=== PATIENT | female | born 1960 | race Caucasian/White ===

== ENCOUNTER 2022-11-05 07:03 | Outpatient (OUT) | payer OTHER, SELFPAY ==
[2022-11-05 07:46] LABS: Alanine Aminotransferase 31 U/L (14-59); Albumin Globulin Ratio 1.1; Alkaline Phosphatase 53 U/L (46-116); Anion Gap 15.9; Aspartate Amino Transferase 16 U/L (15-37); Bilirubin Total 0.8 mg/dL (0.2-1.0); Calcium 9.1 mg/dL (8.5-10.1); Carbon Dioxide 26.1 mmol/L (21.0-32.0); Chloride 105 mmol/L (98-107); Chol HDL Ratio 2.3; Cholesterol 220 mg/dL (<=200); Estimated GFR (African America >60 (>=60); Estimated GFR (Non-African Ame >60 (>=60); Globulin 3.5 g/dL; Glucose 116 mg/dL (74-106); HDL Cholesterol 94 mg/dL (40-60); Sodium 143 mmol/L (136-145); Thyroid Stimulating Hormone 1.151 uIU/mL (0.358-3.740); Total Protein 7.5 g/dL (6.4-8.2); Triglycerides 79 mg/dL (<=150); VLDL CHOLESTEROL 15.8 mg/dL
[2022-11-05 07:57] LABS: Basophils Absolute Auto 0.1 10^3/uL (0.0-0.1); Eosinophils Absolute Auto 0.2 10^3/uL (0.0-0.7); Eosinophils Percent Auto 2.5 % (0.9-7.0); Hematocrit 41.2 % (36.0-48.0); Hemoglobin 14.1 g/dL (12.0-16.0); Immature Granulocytes Abs Auto 0.02 10^3/uL (0.00-0.03); Immature Granulocytes Pct Auto 0.3 % (0.0-0.5); Lymphocytes Absolute Auto 2.6 10^3/uL (1.2-3.8); Lymphocytes Percent Auto 42.5 % (20.5-60.0); Mean Corpuscular HGB Conc 34.2 g/dL (29.9-35.2); Mean Corpuscular Hemoglobin 31.5 pg (26.7-34.0); Mean Corpuscular Volume 92.2 fL (81.0-99.0); Mean Platelet Volume 9.9 fL (9.5-13.5); Monocytes Absolute Auto 0.6 10^3/uL (0.3-0.8); Monocytes Percent Auto 9.8 % (1.7-12.0); Neutrophils Absolute Auto 2.7 10^3/uL (1.4-6.5); Neutrophils Percent Auto 43.9 % (43.0-75.0); Platelet Count 285 10^3/uL (150-450); Red Blood Count 4.47 10^6/uL (4.20-5.40); Red Cell Distribution Width 12.9 % (11.0-15.0)
== END 2022-11-05 07:04 | disposition home or self-care (01) ==
PROVIDERS: PCP Internal Medicine; Visit Provider Internal Medicine
DX: Z00.00 Encounter for general adult medical examination without abnormal findings (principal)
CPT/HCPCS: 36415; 80053; 80061; 84443; 85025

== ENCOUNTER 2022-12-31 08:03 | Outpatient (OUT) | payer OTHER, SELFPAY ==
[2022-12-31 09:55] LABS: Alanine Aminotransferase 35 U/L (14-59); Chol HDL Ratio 1.9; Cholesterol 170 mg/dL (<=200); HDL Cholesterol 88 mg/dL (40-60); Triglycerides 89 mg/dL (<=150); VLDL CHOLESTEROL 17.8 mg/dL
== END 2022-12-31 08:04 | disposition home or self-care (01) ==
LOC: LAB 08:03
PROVIDERS: PCP Internal Medicine; Visit Provider Internal Medicine
DX: E78.01 Familial hypercholesterolemia (principal)
CPT/HCPCS: 36415; 80061; 84460

== ENCOUNTER 2023-11-09 15:40 | Outpatient (OUT) | payer OTHER, SELFPAY ==
--- NOTE | 2023-11-09 15:42 | MM_ITS ---
Patient Name: DEIS FAIR MR#: [id number] : 1960 Exam Date: 11/09/2023 Ordering Doctor: DR Zacarias Stallings D.O. RADIOLOGY REPORT PROCEDURE: MM TOMOSYNTHESIS SCREENING BI COMPARISON: MG MAMM SCREEN 3D CHAD CAD, 02/11/2022. MG MAMM SCREEN 3D CHAD CAD, 09/21/2020. MG MAMM SCREEN CHAD W CAD, 08/21/2018. MG MAMM CHAD SCRN W CAD DIG, 09/01/2012. INDICATIONS: Screening Calculator Name NCI Breast Cancer Risk Assessment Tool 5 Year Breast Cancer Risk 1.20% Lifetime Breast Cancer Risk 5.70% Personal Breast Cancer No Personal Ovarian Cancer No Treatments None Family Cancers Mother with bladder cancer at age 73. LOCATION: [facility] BREAST COMPOSITION: The breasts are heterogeneously dense,which may obscure small masses. FINDINGS: DIAGNOSTIC CATEGORY 1--NEGATIVE. RIGHT BREAST: No significant suspicious finding. No significant change has occurred. LEFT BREAST: No significant suspicious finding. No significant change has occurred. RECOMMENDATIONS: ROUTINE MAMMOGRAM AND CLINICAL EVALUATION IN 12 MONTHS. PLEASE NOTE: A NORMAL MAMMOGRAM DOES NOT EXCLUDE THE POSSIBILITY OF BREAST CANCER. A CLINICALLY SUSPICIOUS PALPABLE LUMP SHOULD BE BIOPSIED. Dictated by: Nick Kasper M.D. on 11/09/2023 at 16:30 Approved by: Nick Kasper M.D. on 11/09/2023 at 16:32
== END 2023-11-09 15:41 | disposition home or self-care (01) ==
LOC: MAMMO 15:40
PROVIDERS: PCP Internal Medicine; Visit Provider Internal Medicine
DX: Z00.00 Encounter for general adult medical examination without abnormal findings (principal); Z12.31 Encounter for screening mammogram for malignant neoplasm of breast
CPT/HCPCS: 77063; 77067

== ENCOUNTER 2023-11-21 15:36 | Outpatient (OUT) | payer OTHER, SELFPAY | END 2023-11-21 15:37 | disposition home or self-care (01) | LOC: CARD 15:37 | PROVIDERS: PCP Internal Medicine; Visit Provider Internal Medicine | DX: R00.2 Palpitations (principal) | CPT/HCPCS: 93242 ==

== ENCOUNTER 2023-11-27 07:05 | Outpatient (OUT) | payer OTHER, SELFPAY ==
--- OUTSIDE RECORDS SUMMARY | 2023-11-27 07:08 | XMS_ITS | CCD ---
Author Organization [facility] CliniSymt Care Team Providers Care Improvement Coordinator Name Role Phone CRISELDA HAI N Unavailable Unavailable CRISELDA, HAI N Unavailable Unavailable SELF, REFERRED Unavailable Unavailable SELF, REFERRED Unavailable Unavailable CRISELDA, HAI N Unavailable Unavailable CRISELDA, HAI N Unavailable Unavailable CRISELDA, HAI N Unavailable Unavailable SELF, REFERRED Unavailable Unavailable Chandrakant, Zacarias Unavailable KRISTINA ., DR FAIR Consulting Unavailable HAY ., DR FAIR Admitting Unavailable HAY ., DR FAIR Attending Unavailable CHANDRAKANT, DR LEVY Primary Care Unavailable LIZ, DR PANDA Philippe Admitting Unavailable CHANDRAKANT, DR LEVY Primary Care Unavailable LIZ, DR PANDA Philippe Attending Unavailable LIZ, DR PANDA Philippe Consulting Unavailable NANI ., LAUREL Consulting Unavailable LUIS FERNANDO, REJI Consulting Unavailable BALL, DR LEVY Admitting Unavailable BALL, DR LEVY Primary Care Unavailable BALL, DR LEVY Attending Unavailable BALL, DR LEVY Primary Care Unavailable BALL, DR LEVY Admitting Unavailable BALL, DR LEVY Attending Unavailable BALL, DR LEVY Consulting Unavailable ZIEBER, DR NICK Philippe Consulting Unavailable UMANZOR, VINH Consulting Unavailable BALL, DR LEVY Admitting Unavailable BALL, DR LEVY Attending Unavailable BALL, DR LEVY Consulting Unavailable BALL, DR LEVY Primary Care Unavailable CHANDRAKANT, DR LEVY Primary Care Unavailable BALL, DR LEVY Admitting Unavailable BALL, DR LEVY Attending Unavailable BALL, DR LEVY Consulting Unavailable ZIEBER, DR NICK Philippe Consulting Unavailable BROWN, MARGO Consulting Unavailable BALL, DR LEVY Primary Care Unavailable BALL, DR LEVY Admitting Unavailable BALL, DR LEVY Attending Unavailable BALL, DR LEVY Consulting Unavailable Allergies Allergy Classification Reported Allergen(s) Allergy Type Date of Onset Reaction(s) Facility (12 sources) Acetaminophen / Aspirin / Caffeine / salicylamide Drug Allergy rash [employer] Other (15 sources) Codeine Drug Allergy 05-08-19 24 Unknown, Itching, hallucinations [facility] (15 sources) HYDROmorphone Drug Allergy 05-08-19 24 Unknown, Unknown Reaction [facility] (12 sources) NITROFURANTOIN, MACROCRYSTALS / Nitrofurantoin, Monohydrate Drug Allergy Unknown [facility] Other (15 sources) Sulfacetamide Drug Allergy 05-08-19 24 rash [facility] (15 sources) zonisamide Drug Allergy 05-08-19 24 Unknown, Chest Pain, dyspnea [facility] (1 source) Codeine Drug Allergy [facility] (1 source) HYDROmorphone Drug Allergy [facility] (1 source) Ketorolac Drug Allergy [facility] (1 source) Meperidine Drug Allergy [facility] (1 source) Sulfonamides (Antibiotic) Drug allergy (disorder) [facility] (4 sources) Substance with sulfonamide structure and antibacterial mechanism of action (substance) Drug allergy 01-28-20 15 Unknown [facility] Other (3 sources) Acetaminophen Drug Allergy 05-08-19 24 Itching, dyspnea, redness of face [facility] (3 sources) HYDROcodone Drug Allergy 05-08-19 24 Itching, dyspnea, redness of face [facility] (3 sources) Nitrofurantoin Drug Allergy 05-08-19 24 Unknown Reaction [facility] (3 sources) Sulfonamides (Antibiotic) Allergy to substance 05-08-19 24 Itching, rash , dyspnea [facility] (3 sources) Pain Relief Allergy to substance 11-02-19 23 [facility] Medications Current Medications Medication Drug Class(es) Dates Sig (Normalized) Sig (Original) amLODIPine 5 mg oral tablet (15 sources) Dihydropyridine Calcium Channel Parker Start: 05-06-2023 take 5 mg by mouth twice daily Amlodipine Active 5 MG PO Twice daily May 06, 2023 1:00am take 1 tablet by mouth twice scott ly amLODIPine Besylate 5 MG 1 tablet Orally twice daily Active aspirin 81 mg chewable tablet (15 sources) Platelet Aggregation Inhibitor, Nonsteroidal Anti-inflammatory Drug Start: 05-06-2023 take 81 mg by mouth once daily Aspirin Active 81 MG PO Daily May 06, 2023 1:00am take 1 tablet by mouth once claudy y Aspirin 81 81 MG 1 tablet Orally Once a day Active atorvastatin (7 sources) HMG-CoA Reductase Inhibitor Start: 05-31-2023 take 1 tablet by mouth in the evening Atorvastatin Active 0 .ROUTE .COMPLEX May 31, 2023 4:29pm TAKE 1 TABLET BY MOUTH IN THE EVENING Start: 05-31-2023 End: 05-31-2023 take 20 mg by mouth once daily Atorvastatin Discontinu ed 20 MG PO Daily May 31, 2023 12:00am May 31, 2023 4:29pm take 1 tablet by thor th once daily in the evening Atorvastatin Calcium 20 MG 1 tablet Orally daily in evening for 30 days Active baclofen 10 mg oral tablet (16 sources) gamma-Aminobutyric Acid-ergic Agonist Start: 08-18-2023 take 1 tablet by mouth once daily as needed Baclofen Active 0 .ROUTE .COMPLEX 90 August 18, 2023 1:19pm TAKE 1 TABLET BY MOUTH DAILY NEEDED Start: 05-06-2023 End: 08-18-2023 take 10 mg by mouth once daily Baclofen Discontinued 1 0 MG PO Daily May 06, 2023 1:00am August 18, 2023 1:19pm Start: 03-22-2022 take 1 tablet by thor th every twenty-four hours Baclofen 10 MG 1 tablet as needed Orally Once a day for 90 days Mar, Active bisoprolol fumarate 10 mg / hydroCHLOROthiazide 6.25 mg oral tablet (15 sources) Thiazide Diuretic, beta-Adrenergic Parker Start: 05-06-2023 take 1 tablet by mouth once daily Bisoprolol-Hydrochlorothiazide Active 1 TAB PO Daily May 06, 2023 1:00am Start: 05-02-2022 take 1 tablet by thor th every twenty-four hours Bisoprolol-hydroCHLOROthiazide 5-6.25 MG 1 tablet Orally Once a day for 30 day(s) Apr, Active take 1 tablet by thor th once daily Bisoprolol-hydroCHLOROthiazide 10-6.25 M G TAKE 1 TABLET BY MOUTH ONCE DAILY for 30 Active cloNIDine (11 sources) Central alpha-2 Adrenergic Agonist Start: 09-28-2023 take 1 tablet by mouth every twelve hours Clonidine Hcl Active 0 .ROUTE .COMPLEX 180 September 28, 2023 4:24pm TAKE 1 TABLET BY MOUTH EVERY 12 HOURS Start: 09-27-2023 End: 09-28-2023 take 1 tablet by mouth every twelve hours Clonidine Hcl Discontinued 0 .ROUTE .COMPLEX 180 September 27, 2023 6:17pm September 28, 2023 4:24pm TAKE 1 TABLET BY MOUTH EVERY 12 HOURS Start: 05-06-2023 End: 09-27-2023 take 0.1 mg by mouth every twelve hours Clonidine Hcl Discontinued 0.1 MG PO Every 12 hours May 06, 2023 1:00am September 27, 2023 6:17pm Start: 06-29-2022 take 1 tablet by thor th every twelve hours cloNIDine HCl 0.1 MG 1 tablet Orally every 12 hours Jun, Active losartan potassium 50 mg oral tablet (15 sources) Angiotensin 2 Receptor Parker Start: 05-06-2023 take 50 mg by mouth twice daily Losartan Active 50 MG PO Twice daily May 06, 2023 1:00am take 1 tablet by mouth twice scott ly Losartan Potassium 50 MG 1 tablet Orally twice daily for 30 days Active take 1 tablet by mouth twice scott ly Losartan Potassium 25 MG 1 tablet Orally twice daily Active magnesium oxide 400 mg oral tablet (15 sources) Start: 05-06-2023 take 400 mg by mouth once daily Magnesium Oxide Active 400 MG PO Daily May 06, 2023 1:00am Magnesium Oxide 400 MG 1 Orally Once a day for 90 days Active Prepopik 10-3.5-12 MG-GM-GM (12 sources) Start: 02-18-2015 SUMAtriptan (12 sources) Serotonin-1b and Serotonin-1d Receptor Agonist Imitrex Active warfarin sodium 5 mg oral tablet (5 sources) Vitamin K Antagonist Warfarin 5m g 5 mg as directed orally Active Completed/Discontinued Medications Medication Drug Class(es) Dates Sig (Normalized) Sig (Original) diphenhydrAMINE (12 sources) Histamine-1 Receptor Antagonist Start: 04-18-2013 Benadryl up to 50 mg Mar, 1 mL Ketorolac (12 sources) Nonsteroidal Anti-inflammatory Drug, Cyclooxygenase Inhibitor Start: 04-18-2013 Toradol per 15 mg Mar, 2 mL rizatriptan 5 mg oral tablet (3 sources) Serotonin-1b and Serotonin-1d Receptor Agonist Start: 01-03-2019 End: 05-06-2023 Rizatriptan Discontinued 5 MG PO As Directed January 03, 2019 12:00am May 06, 2023 1:55pm topiramate 50 mg oral tablet (3 sources) Start: 01-03-2019 End: 05-06-2023 take 75 mg by mouth twice daily Topiramate Discontinued 75 MG PO Twice daily January 03, 2019 12:00am May 06, 2023 1:55pm verapamil hydrochloride 120 mg extended release oral tablet (3 sources) Calcium Channel Parker Start: 01-03-2019 End: 05-06-2023 take 120 mg by mouth once daily at bedtime Verapamil Discontinued 120 MG PO Daily at bedtime January 03, 2019 12:00am May 06, 2023 1:55pm Problems Active Problems Problem Classification Problem Date Documented Da te Episodic/Chronic Acute cerebrovascular disease (20 sources) Cerebral infarction due to unspecified occlusion or stenosis of right carotid arteries; Translations: [Cerebral infarction due to stenosis of carotid artery] Chronic Aortic; peripheral; and visceral artery aneurysms (14 sources) Dissection of right carotid artery; Translations: [Dissection of carotid artery] Onset: 12-29-2021 Chronic Cardiac dysrhythmias (2 sources) Palpitations; Translations: [Palpitations] 11-03-2023 Episodic Disorders of lipid metabolism (20 sources) Pure hypercholesterolemia; Translations: [Familial hypercholesterolemia] Chronic Essential hypertension (20 sources) Essential hypertension; Translations: [Essential (primary) hypertension] Onset: 06-29-2022 Chronic Genitourinary symptoms and ill-defined conditions (7 sources) Frequency of micturition; Translations: [Frequency of urination] Episodic Headache; including migraine (17 sources) Migraine with aura; Translations: [Migraine with aura, not intractable, without status migrainosus] Chronic Headache; including migraine (4 sources) Headache; including migraine; Translations: [HEADACHE UNSPECIFIED] Onset: 12-27-2021 Miscellaneous mental health disorders (7 sources) Occipital headache; Translations: [Unilateral occipital headache] Chronic Nonmalignant breast conditions (7 sources) Inflammatory disorder of breast; Translations: [Mastitis without abscess] Episodic Osteoporosis (1 source) Age-related osteoporosis without current pathological fracture; Translations: [AGE-REL OSTEOPOR W/O CURR PATH FX] Onset: 02-16-2022 Chronic Other aftercare (1 source) manager long term care (current) use of aspirin; Translations: [MCFP CURRENT USE OF ASPIRIN] Onset: 07-01-2022 Episodic Other and ill-defined cerebrovascular disease (1 source) Cerebral atherosclerosis; Translations: [Cerebral atherosclerosis] 07-31-2023 Chronic Other and ill-defined cerebrovascular disease (1 source) Cerebral atherosclerosis; Translations: [Cerebral atherosclerosis] 11-03-2023 Chronic Other circulatory disease (7 sources) Elevated blood-pressure reading without diagnosis of hypertension; Translations: [Elevated blood-pressure reading, without diagnosis of hypertension] Episodic Other circulatory disease (12 sources) Cardiovascular symptoms; Translations: [Other specified symptoms and signs involving the circulatory and respiratory systems] Episodic Other circulatory disease (1 source) Personal history of transient ischemic attack (TIA), and cerebral infarction without residual deficits; Translations: [PERS HX TIA AND CI NO RESID DEFICIT] Onset: 07-01-2022 Episodic Other endocrine disorders (12 sources) Primary hyperparathyroidism; Translations: [Primary hyperparathyroidism] Chronic Other eye disorders (7 sources) Subconjunctival hemorrhage of left eye; Translations: [Conjunctival hemorrhage, left eye] Episodic Other gastrointestinal disorders (12 sources) Irritable bowel syndrome characterized by constipation; Translations: [Irritable bowel syndrome with constipation] Chronic Other lower respiratory disease (7 sources) Cough; Translations: [Cough] Episodic Other non-traumatic joint disorders (1 source) Pain in right knee; Translations: [Pain in joint, lower leg] 05-08-2023 Episodic Other upper respiratory infections (1 source) Acute pharyngitis, unspecified; Translations: [Acute pharyngitis] 05-08-2023 Episodic Otitis media and related conditions (7 sources) Other specified disorders of Eustachian tube, right ear; Translations: [Dysfunction of right eustachian tube] Episodic Residual codes; unclassified (13 sources) Asymptomatic menopausal state; Translations: [Menopause] Onset: 02-16-2022 Episodic Screening and history of mental health and substance abuse codes (1 source) Personal history of nicotine dependence; Translations: [PERSONAL HISTORY OF NICOTINE DEPEND] Onset: 07-01-2022 Episodic Spondylosis; intervertebral disc disorders; other back problems (20 sources) Cervical spondylosis without myelopathy; Translations: [Other spondylosis with radiculopathy, cervical region] Chronic Substance-related disorders (20 sources) Tobacco user; Translations: [Nicotine dependence, cigarettes, uncomplicated] Onset: 12-29-2021 Chronic Unclassified (2 sources) Unknown / UNK(Unknown) Onset: 01-19-2017 Unclassified (4 sources) CONTACT W/AND (SUSP) EXPOS COVID-19; Translations: [CONTACT W/AND (SUSP) EXPOS COVID-19] Onset: 09-02-2021 Unclassified (3 sources) COUGH, UNSPECIFIED; Translations: [COUGH, UNSPECIFIED] Onset: 09-15-2021 Past or Other Problems Problem Classification Problem Date Documented Da te Episodic/Chronic Lymphadenitis (8 sources) Lymphadenopathy; Translations: [Localized enlarged lymph nodes] Onset: 09-15-2021 Episodic Other bone disease and musculoskeletal deformities (1 source) Other specified disorders of bone density and structure, other site; Translations: [OTH D/O BONE DEN STRUCT OTH SITE] Onset: 02-16-2022 Episodic Other screening for suspected conditions (not mental disorders or infectious disease) (4 sources) Encounter for screening mammogram for malignant neoplasm of breast; Translations: [ENC SCR MAMMO MALIG NEOPLASM BREAST] Onset: 02-11-2022 Episodic Residual codes; unclassified (1 source) Family history of malignant neoplasm of bladder; Translations: [FAM HX MALIGNANT NEOPLASM BLADDER] Onset: 02-16-2022 Episodic Spondylosis; intervertebral disc disorders; other back problems (4 sources) Occipital neuralgia; Translations: [OCCIPITAL NEURALGIA] Onset: 01-19-2017 Episodic Unclassified (1 source) COUGH, UNSPECIFIED; Translations: [COUGH, UNSPECIFIED] Onset: 09-10-2021 Unclassified (1 source) CONTACT W/AND (SUSP) EXPOS COVID-19; Translations: [CONTACT W/AND (SUSP) EXPOS COVID-19] Onset: 08-31-2021 Viral infection (7 sources) Disease caused by 2019-nCoV; Translations: [COVID-19] Results Test Name Value Interpretation Reference Range Facility CBC AUTO DIFFon 06-29-2022 BASO # 0.1 103/ul Normal 0.0-0.[address] [facility] Comment on above: Performed By: #### C BC ####[facility] [address] [place], [place] [address]WzLola Pérez Basophils/100 WBC (Bld) 1.0 % Normal 0.2-2.[address] [facility] Comment on above: Performed By: #### C BC ####[facility] [address] [place] [id number]. Brady Pérez EO # 0.2 103/ul Normal 0.0-0.7 [facility] Comment on above: Performed By: #### C BC ####[facility] [address] [place] [id number]. Brady Pérez Eosinophils/100 WBC (Bld) 3.5 % Normal 0.9-7.0 [facility] Comment on above: Performed By: #### C BC ####[facility] [address] [place], [place] [address]Dr. Brady Pérez Erythrocyte distribution width (RBC) [Ratio] 13.2 % Normal 11.0-15.0 [facility] Comment on above: Performed By: #### C BC ####[facility] [address] [place], [place] [address]Dr. Brady Pérez Hematocrit (Bld) [Volume fraction] 41.5 % Normal 36.0-48.0 [facility] Comment on above: Performed By: #### C BC ####[facility] [address] [place], [place] [address]Dr. Brady Pérez Hemoglobin (Bld) [Mass/Vol] 14.1 g/dL Normal 12.0-16.0 [facility] Comment on above: Performed By: #### C BC ####[facility] [address] [place], [place] [address]Dr. Brady Pérez IG # 0.01 10e3/ul Normal 0.00-0.03 [facility] Comment on above: Performed By: #### C BC ####[facility] [address] [place], [place] [address]Dr. Brady Pérez IG % 0.2 % Normal 0.0-0.5 [facility] Comment on above: Performed By: #### C BC ####[facility] [address] [place], [place] [address]Dr. Brady Pérez LYMPH # 2.5 103/ul Normal 1.2-3.8 [facility] Comment on above: Performed By: #### C BC ####[facility] [address] [place] [id number]. Brady Pérez Lymphocytes/100 WBC (Bld) 48.3 % Normal 20.5-60.0 [facility] Comment on above: Performed By: #### C BC ####[facility] [address] [place] [id number]. Brady Pérez MANUAL DIFF REQ NO Normal [facility] Comment on above: Performed By: #### C BC ####[facility] [address] [place] [id number]. Brady Beto MCH (RBC) [Entitic mass] 30.8 pg Normal 26.7-34.0 [facility] Comment on above: Performed By: #### C BC ####[facility] [address] [place] [id number]. Brady Pérez MCHC (RBC) [Mass/Vol] 34.0 g/dL Normal 29.9-35.2 [facility] Comment on above: Performed By: #### C BC ####[facility] [address] [place] [id number]. Brady Pérez MCV (RBC) [Entitic vol] 90.6 fL Normal 81.0-99.0 [facility] Comment on above: Performed By: #### C BC ####[facility] [address] [place] [id number]. Brady Beto MONO # 0.6 103/ul Normal 0.3-0.8 [facility] Comment on above: Performed By: #### C BC ####[facility] [address] [place] [id number]. Brady Pérez Monocytes/100 WBC (Bld) 12.2 % Critically high 1.7-12.0 [facility] Comment on above: Performed By: #### C BC ####[facility] [address] [place], [place] [id number]. Argentinaanalilia Beto NEUT # 1.8 103/ul Normal 1.4-6.5 [facility] Comment on above: Performed By: #### C BC ####[facility] [address] [place] [id number]. Brady Pérez Neutrophils/100 WBC (Bld) 34.8 % Critically low 43.0-75.0 [facility] Comment on above: Performed By: #### C BC ####[facility] [address] [place] [id number]. Brady Pérez Platelet mean volume (Bld) [Entitic vol] 9.4 fL Critically low 9.5-13.5 [facility] Comment on above: Performed By: #### C BC ####[facility] [address] [place] [id number]. Brady Pérez PLT 296 103/ul Normal 150-450 [facility] Comment on above: Performed By: #### C BC ####[facility] [address] [place] [id number]. Brady Pérez RBC 4.58 106/ul Normal 4.20-5.40 [facility] Comment on above: Performed By: #### C BC ####[facility] [address] [place] [id number]. Brady Pérez WBC 5.2 103/ul Normal 4.0-11.0 [facility] Comment on above: Performed By: #### C BC ####[facility] [address] [place] [id number] Pérez PROF CHEM 8 (BAS METB)on Anion gap [Moles/Vol] 14.0 mmol/L Normal [facility] Comment on above: Performed By: #### B MP #### [facility] [address] [place] [address] [address] Brady Pérez Calcium [Mass/Vol] 9.2 mg/dL Normal 8.5-10.1 [facility] Comment on above: Performed By: #### B MP #### [facility] [address] [place] [address] [address] Brady Pérez Chloride [Moles/Vol] 104 mmol/L Normal 98-107 [facility] Comment on above: Performed By: #### B MP #### [facility] [address] [place] [address] [address] Brady Pérez CO2 [Moles/Vol] 28.1 mmol/L Normal 21.0-32.0 [facility] Comment on above: Performed By: #### B MP #### [facility] [address] [place] [address] [address] Brady Pérez Creatinine [Mass/Vol] 1.02 mg/dL Normal 0.55-1.02 [facility] Comment on above: Performed By: #### B MP #### [facility] [address] [place] [address] [address] Brady Pérez EGFR-AF KOSOVAN >60 Normal >=60 [facility] Comment on above: Performed By: #### B MP #### [facility] [address] [place] [address] Dr. Brady Pérez EGFR-NON AF KOSOVAN 55 mL/min/1.73m2 Critically low >=60 [facility] Comment on above: Performed By: #### B MP #### [facility] [address] [place] [address] Dr. Brady Pérez Glucose [Mass/Vol] 102 mg/dL Normal 74-106 [facility] Comment on above: Performed By: #### B MP #### [facility] [address] [place] [address] Dr. Brady Pérez Potassium [Moles/Vol] 4.1 mmol/L Normal 3.5-5.1 [facility] Comment on above: Performed By: #### B MP #### [facility] [address] [place] [address] Dr. Brady Pérez Sodium [Moles/Vol] 142 mmol/L Normal 136-145 [facility] Comment on above: Performed By: #### B MP #### [facility] [address] [place] [address] [address] Brady Pérez Urea nitrogen [Mass/Vol] 13.0 mg/dL Normal 7.0-18.0 [facility] Comment on above: Performed By: #### B MP #### [facility] [address] [place] [address] Dr. Brady Pérez Urea nitrogen/Creatini ne [Mass ratio] 12.7 mg/mg Normal [facility] Comment on above: Performed By: #### B #### [facility] [address] [place] [address] [address] Brady Pérez MG MAMM SCREEN 3D CHAD CADon 02-11-2022 MG MAMM SCREEN 3D CHAD CAD Patient: DESI KNOTT Exam Date: 02/11/2022 : 1960 Gender:F Ordering : DR ZACARIAS STALLINGS D.O. Admission #: [id number] Family : Order #: [id number] CLICK HERE TO VIEW EXAM RADIOLOGY REPORT PROCEDURE: MAMMOGRAM SCREENING 3D BILATERAL CAD COMPARISON: MG MAMM SCREEN 3D CHAD CAD, 09/21/2020. MG MAMM SCREEN CHAD W CAD, 08/21/2018. INDICATIONS: Screening mammography Calculator Name NCI Breast Cancer Risk Assessment Tool 5 Year Breast Cancer Risk 1.20% Lifetime Breast Cancer Risk 6.00% Personal Breast Cancer No Personal Ovarian Cancer No Treatments None Family Cancers Mother with bladder cancer at age 73. LOCATION: [facility] BREAST COMPOSITION: Heterogeneously dense,which may obscure small masses. FINDINGS: DIAGNOSTIC CATEGORY 1--NEGATIVE. RIGHT BREAST: No significant suspicious finding. No significant change has occurred. LEFT BREAST: No significant suspicious finding. No significant change has occurred. RECOMMENDATIONS: ROUTINE MAMMOGRAM AND CLINICAL EVALUATION IN 12 MONTHS. PLEASE NOTE: A NORMAL MAMMOGRAM DOES NOT EXCLUDE THE POSSIBILITY OF BREAST CANCER. A CLINICALLY SUSPICIOUS PALPABLE LUMP SHOULD BE BIOPSIED. Dictated by: Nick Kasper M.D. on 02/14/2022 at 14:47 Approved by: Nick Kasper M.D. on 02/14/2022 at 14:51 Normal [facility] XR DEXA BONE DENSITYon 02-11 XR DEXA BONE DENSITY DEXA Bone Density Study CLINICAL: Evaluate bone mineral density. Postmenopausal COMPARISON: None FINDINGS: The bone density study was assessed by dual-energy x-ray absorptiometry with the Sprinkle scanner. The test results are expressed in T-Score, which is used for diagnosis for osteoporosis, and reflects the standard deviations from the mean peak bone mineral density in young adults. Additional information regarding the Z-Score reflects the standard deviations from the mean peak bone mineral density for age- and gender- matched subject. Lumbar Spine (L1-L4): BMD (gm/cm2): 0.995 T-Score: -1.5 Left Hip: BMD (gm/cm2): 0.767 T-Score: -1.9 Left Femoral Neck: BMD (gm/cm2): 0.706 T-Score: -2.4 Right Hip: BMD (gm/cm2): 0.713 T-Score: -2.3 Right Femoral Neck: BMD (gm/cm2): 0.6-7 T-Score: -3.0 IMPRESSION: 1 lumbar spine indicates osteopenia. 2. Left hip indicates osteopenia. 3. Right femoral neck indicates osteoporosis. REFERENCE: In children, postmenopausal women and males under age 50 not at increased risk for fractures, only Z-Scores, not T-Scores, are used to indicate fracture risk. A Z-Score above -2.0 is defined as within the expected range for age and Z-Score at or less than -2.0 is below the expected range for age. A Z-Score below the expected range for age in a patient with recent fractures and/or chronic corticosteroid treatment is consistent with a diagnosis of osteoporosis. In postmenopausal women and males over 50, comparison of the measured bone mineral density with the average value in young normal subjects (the T-Score) has been found to be useful in assessing fracture risk. Fracture risk approximately doubles for each 1.0 standard deviation (SD) that the individual's hip or spine bone mineral density is below the average value of young normal subjects. The World health Organization (WHO) has provided the following definitions: 1. Normal: T-Score within one standard deviation of young adult mean value (T-Score greater than -1.0). 2. Osteopenia (low bone mass): T-Score more than one standard deviation below the young adult mean but less than 2.5 standard deviations below the young adult mean (T-Score between -1.0 and -2.5). 3. Osteoporosis: T-Score more than 2.5 standard deviations below the young adult mean (T-Score less than -2.5). 4. Sever Osteoporosis (established osteoporosis): T-Score more than 2.5 standard deviations below young adult and one or more fragility fracture (T-Score less than -2.5 + fragility fractures). Electronically authenticated by: MARGO Goldsmith: 2022-02-11 09:26 Normal [facility] CBC AUTO DIFFon 02-05-2022 BASO # 0.1 103/ul Normal 0.0-0.[address] [facility] Comment on above: Performed By: #### C BC #### [facility] [address] [address] [address] Brady Pérez Basophils/100 WBC (Bld) 1.0 % Normal 0.2-2.0 [facility] Comment on above: Performed By: #### C BC #### [facility] [address] [address] [address] Brady Pérez EO # 0.2 103/ul Normal 0.0-0.[address] [facility] Comment on above: Performed By: #### C BC #### [facility] [address] [place] [address] Dr. Brady Pérez Eosinophils/100 WBC (Bld) 2.6 % Normal 0.9-7.[address] [facility] Comment on above: Performed By: #### C BC #### [facility] [address] [place] [address] Dr. Brady Pérez Erythrocyte distribution width (RBC) [Ratio] 13.7 % Normal 11.0-15.[address] [facility] Comment on above: Performed By: #### C BC #### [facility] [address] [place] [address] Dr. Brady Pérez Hematocrit (Bld) [Volume fraction] 43.6 % Normal 36.0-48.[address] [facility] Comment on above: Performed By: #### C BC #### [facility] [address] [place] [address] Dr. Brady Pérez Hemoglobin (Bld) [Mass/Vol] 14.7 g/dL Normal 12.0-16.0 [facility] Comment on above: Performed By: #### C BC #### [facility] [address] [place] [address] Dr. Brady Pérez IG # 0.01 10e3/ul Normal 0.00-0.03 [facility] Comment on above: Performed By: #### C BC #### [facility] [address] [place] [address] Dr. Brady Pérez IG % 0.2 % Normal 0.0-0.[address] [facility] Comment on above: Performed By: #### C BC #### [facility] [address] [place] [address] Dr. Brady Pérez LYMPH # 2.6 103/ul Normal 1.2-3.8 [facility] Comment on above: Performed By: #### C BC #### [facility] [address] [place] [address] Dr. Brady Pérez Lymphocytes/100 WBC (Bld) 43.6 % Normal 20.5-60.[address] [facility] Comment on above: Performed By: #### C BC #### [facility] [address] [place] [address] Dr. Brady Pérez MANUAL DIFF REQ NO Normal [facility] Comment on above: Performed By: #### C BC #### [facility] [address] [place] [address] Dr. Brady Pérez MCH (RBC) [Entitic mass] 30.7 pg Normal 26.7-34.[address] [facility] Comment on above: Performed By: #### C BC #### [facility] [address] [place] [address] Dr. Brady Pérez MCHC (RBC) [Mass/Vol] 33.7 g/dL Normal 29.9-35.2 [facility] Comment on above: Performed By: #### C BC #### [facility] [address] [place] [address] Dr. Brady Pérez MCV (RBC) [Entitic vol] 91.0 fL Normal 81.0-99.0 [facility] Comment on above: Performed By: #### C BC #### [facility] [address] [place] [address] Dr. Brady Pérez MONO # 0.7 103/ul Normal 0.3-0.8 [facility] Comment on above: Performed By: #### C BC #### [facility] [address] [place] [address] Dr. Brady Pérez Monocytes/100 WBC (Bld) 11.6 % Normal 1.7-12.0 [facility] Comment on above: Performed By: #### C BC #### [facility] [address] [place] [address] Dr. Brady Pérez NEUT # 2.5 103/ul Normal 1.4-6.5 [facility] Comment on above: Performed By: #### C BC #### [facility] [address] [place] [address] Dr. Brady Pérez Neutrophils/100 WBC (Bld) 41.0 % Critically low 43.0-75.0 [facility] Comment on above: Performed By: #### C BC #### [facility] [address] [place] [address] Dr. Brady Pérez Platelet mean volume (Bld) [Entitic vol] 9.3 fL Critically low 9.5-13.5 [facility] Comment on above: Performed By: #### C BC #### [facility] [address] [place] [address] Dr. Brady Pérez PLT 317 103/ul Normal 150-450 [facility] Comment on above: Performed By: #### C BC #### [facility] [address] [place] [address] Dr. Brady Pérez RBC 4.79 106/ul Normal 4.20-5.40 [facility] Comment on above: Performed By: #### C BC #### [facility] [address] [place] [address] Dr. Brady Pérez WBC 6.1 103/ul Normal 4.0-11.0 [facility] Comment on above: Performed By: #### C BC #### [facility] [address] [place] [address] Dr. Brady Pérez LIPID PROFILEon 02-05-2022 CHOL-HDL RATIO NORM SEE BELOW Normal [facility] Comment on above: Result Comment: 3.3 - 4.4 LOW RISK 4.4 - 7.1 AVERAGE RISK 7.1 - 11.0 MODERATE RISK >11.0 HIGH RISK Performed By: #### L IPID, MG, CMP, TSH ####[facility] [address] [id number]. Brady Pérez Cholesterol [Mass/Vol] 222 mg/dL Critically high <=200 [facility] Comment on above: Performed By: #### L IPID, MG, CMP, TSH ####[facility] [address] [address]Dr. Brady Pérez Cholesterol in HDL [Mass/Vol] 110 mg/dL Critically high 40-60 [facility] Comment on above: Performed By: #### L IPID, MG, CMP, TSH ####[facility] [address] [address]Dr. Brady Pérez Cholesterol in LDL [Mass/Vol] 94.4 mg/dL Normal [facility] Comment on above: Performed By: #### L IPID, MG, CMP, TSH ####[facility] [address] [address]Dr. Brady Beto Cholesterol.total /Cholesterol in HDL [Mass ratio] 2.0 {ratio} Normal [facility] Comment on above: Performed By: #### L IPID, MG, CMP, TSH ####[facility] [address] [address]Dr. Brady Pérez HDL NORMAL > or = 60 mg/dl - LO W CARDIOVASCULAR RISK <40 mg/dl - HIGH CARDIOVASCULAR RISK Normal [facility] Comment on above: Performed By: #### L IPID, MG, CMP, TSH ####[facility] [address] [address]Dr. Brady Pérez LDL CALC NORMAL SEE BELOW Normal [facility] Comment on above: Result Comment: <100 mg/dl OPTIMAL 100 - 129 mg/dl NEAR OR ABOVE OPTIMAL 130 - 159 mg/dl BORDERLINE HIGH 160 - 189 mg/dl HIGH >190 mg/dl VERY HIGH Performed By: #### L IPID, MG, CMP, TSH ####[facility] [address] [address]Dr. Brady Beto Triglyceride [Mass/Vol] 88 mg/dL Normal <=150 [facility] Comment on above: Performed By: #### L IPID, MG, CMP, TSH ####[facility] [address] [address]Dr. Brady Pérez VLDL CALC 17.6 mg/dL Normal [facility] Comment on above: Performed By: #### L IPID, MG, CMP, TSH ####[facility] [address] [address]Dr. Brady Pérez MAGNESIUMon 02-05-2022 Magnesium [Mass/Vol] 2.3 mg/dL Normal 1.8-2.[address] [facility] Comment on above: Performed By: #### L IPID, MG, CMP, TSH ####[facility] [address] [address]Dr. Brady Pérez PROF 14(COMP METB)on 022 Albumin [Mass/Vol] 3.9 g/dL Normal 3.4-5.[address] [facility] Comment on above: Performed By: #### L IPID, MG, CMP, TSH ####[facility] [address] [address]Dr. Brady Pérez Albumin/Globulin [Mass ratio] 1.1 {ratio} Normal [facility] Comment on above: Performed By: #### L IPID, MG, CMP, TSH ####[facility] [address] [address]Dr. Brady Pérez ALP [Catalytic activity/Vol] 63 U/L Normal 46-116 [facility] Comment on above: Performed By: #### L IPID, MG, CMP, TSH ####[facility] [address] [address]Dr. Brady Pérez ALT [Catalytic activity/Vol] 31 U/L Normal 14-59 [facility] Comment on above: Performed By: #### L IPID, MG, CMP, TSH ####[facility] [address] [address]Dr. Brady Pérez Anion gap [Moles/Vol] 10.3 mmol/L Normal [facility] Comment on above: Performed By: #### L IPID, MG, CMP, TSH ####[facility] [address] [address]Dr. Brady Pérez AST [Catalytic activity/Vol] 14 U/L Critically low 15-37 [facility] Comment on above: Performed By: #### L IPID, MG, CMP, TSH ####[facility] [address] [address]Dr. Brady Pérez Bilirubin [Mass/Vol] 0.7 mg/dL Normal 0.2-1.0 [facility] Comment on above: Performed By: #### L IPID, MG, CMP, TSH ####[facility] [address] [address]Dr. Brady Pérez Calcium [Mass/Vol] 9.1 mg/dL Normal 8.5-10.1 [facility] Comment on above: Performed By: #### L IPID, MG, CMP, TSH ####[facility] [address] [place], [place] [address]Dr. Brady Pérez Chloride [Moles/Vol] 103 mmol/L Normal 98-107 [facility] Comment on above: Performed By: #### L IPID, MG, CMP, TSH ####[facility] [address] [place], [place] [address]Dr. Brady Pérez CO2 [Moles/Vol] 30.8 mmol/L Normal 21.0-32.0 [facility] Comment on above: Performed By: #### L IPID, MG, CMP, TSH ####[facility] [address] [place], [place] [address]Dr. Brady Pérez Creatinine [Mass/Vol] 0.76 mg/dL Normal 0.55-1.02 [facility] Comment on above: Performed By: #### L IPID, MG, CMP, TSH ####[facility] [address] [place], [place] [address]Dr. Brady Pérez EGFR-AF KOSOVAN >60 Normal >=60 [facility] Comment on above: Performed By: #### L IPID, MG, CMP, TSH ####[facility] [address] [address]Dr. Brady Pérez EGFR-NON AF KOSOVAN >60 Normal >=60 [facility] Comment on above: Performed By: #### L IPID, MG, CMP, TSH ####[facility] [address] [address]Dr. Brady Pérez Globulin (S) [Mass/Vol] 3.5 g/dL Normal [facility] Comment on above: Performed By: #### L IPID, MG, CMP, TSH ####[facility] [address] [address]Dr. Brady Pérez Glucose [Mass/Vol] 104 mg/dL Normal 74-106 [facility] Comment on above: Performed By: #### L IPID, MG, CMP, TSH ####[facility] [address] [address]Dr. Brady Pérez Potassium [Moles/Vol] 4.1 mmol/L Normal 3.5-5.1 [facility] Comment on above: Performed By: #### L IPID, MG, CMP, TSH ####[facility] [address] [place], [place] [address]Dr. Brady Pérez Protein [Mass/Vol] 7.4 g/dL Normal 6.4-8.2 [facility] Comment on above: Performed By: #### L IPID, MG, CMP, TSH ####[facility] [address] [address]Dr. Brady Pérez Sodium [Moles/Vol] 140 mmol/L Normal 136-145 [facility] Comment on above: Performed By: #### L IPID, MG, CMP, TSH ####[facility] [address] [address]Dr. Brady Pérez Urea nitrogen [Mass/Vol] 11.0 mg/dL Normal 7.0-18.0 [facility] Comment on above: Performed By: #### L IPID, MG, CMP, TSH ####[facility] [address] [address]Dr. Bardy Pérez Urea nitrogen/Creatini ne [Mass ratio] 14.5 mg/mg Normal [facility] Comment on above: Performed By: #### L IPID, MG, CMP, TSH ####[facility] [address] [id number]. Brady Pérez TSHon 02-05-2022 TSH 1.652 uIU/mL Normal 0.358-3.[address] [facility] Comment on above: Performed By: #### L IPID, MG, CMP, TSH ####[facility] [address] [id number] Pérez VITAMIN D 25 OHon 02-05-2022 VIT D 25-OH 35.5 ng/mL Normal [facility] Comment on above: Performed By: #### V ITAD #### [facility] [address] [place] [address] Dr. Brady Pérez VIT D RANGES SEE BELOW Normal [facility] Comment on above: Result Comment: <20 ng/mL Vit D deficient 20 - <30 ng/mL Vit D insufficient 30 - 100 ng/mL Vit D sufficient >100 ng/mL Potential Toxicity Performed By: #### V ITAD #### [facility] [address] [address] [address] Brady Pérez CBC AUTO DIFFon 12-27-2021 BASO # 0.1 103/ul Normal 0.0-0.[address] [facility] Comment on above: Performed By: #### C BC ####[facility] [address] [address]DrLola Pérez Basophils/100 WBC (Bld) 1.0 % Normal 0.2-2.[address] [facility] Comment on above: Performed By: #### C BC ####[facility] [address] [address]DrLola Pérez EO # 0.1 103/ul Normal 0.0-0.7 [facility] Comment on above: Performed By: #### C BC ####[facility] [address] [phone] Pérez Eosinophils/100 WBC (Bld) 1.6 % Normal 0.9-7.[address] [facility] Comment on above: Performed By: #### C BC ####[facility] [address] [address]Dr. Brady Pérez Erythrocyte distribution width (RBC) [Ratio] 13.5 % Normal 11.0-15.[address] [facility] Comment on above: Performed By: #### C BC ####[facility] [address] [address]Dr. Brady Pérez Hematocrit (Bld) [Volume fraction] 43.9 % Normal 36.0-48.[address] [facility] Comment on above: Performed By: #### C BC ####[facility] [address] [place], [place] [address]Dr. Brady Pérez Hemoglobin (Bld) [Mass/Vol] 14.4 g/dL Normal 12.0-16.[address] [facility] Comment on above: Performed By: #### C BC ####[facility] [address] [place], [place] [address]Dr. Brady Pérez IG # 0.01 10e3/ul Normal 0.00-0.[address] [facility] Comment on above: Performed By: #### C BC ####[facility] [address] [place], [place] [address]Dr. Brady Pérez IG % 0.1 % Normal 0.0-0.[address] [facility] Comment on above: Performed By: #### C BC ####[facility] [address] [place], [place] [address]Dr. Brady Pérez LYMPH # 2.4 103/ul Normal 1.2-3.8 [facility] Comment on above: Performed By: #### C BC ####[facility] [address] [place], [place] [address]Dr. Brady Pérez Lymphocytes/100 WBC (Bld) 34.3 % Normal 20.5-60.0 [facility] Comment on above: Performed By: #### C BC ####[facility] [address] [place], [place] [address]Dr. Brady Pérez MANUAL DIFF REQ NO Normal [facility] Comment on above: Performed By: #### C BC ####[facility] [address] [id number]. Brady Beto MCH (RBC) [Entitic mass] 30.6 pg Normal 26.7-34.[address] [facility] Comment on above: Performed By: #### C BC ####[facility] [address] [id number]. Brady Beto MCHC (RBC) [Mass/Vol] 32.8 g/dL Normal 29.9-35.2 [facility] Comment on above: Performed By: #### C BC ####[facility] [address] [address]Dr. Brady Pérez MCV (RBC) [Entitic vol] 93.2 fL Normal 81.0-99.[address] [facility] Comment on above: Performed By: #### C BC ####[facility] [address] [place], [place] [address]Dr. Brady Pérez MONO # 0.6 103/ul Normal 0.3-0.8 [facility] Comment on above: Performed By: #### C BC ####[facility] [address] [place], [place] [address]Dr. Brady Pérez Monocytes/100 WBC (Bld) 9.1 % Normal 1.7-12.0 [facility] Comment on above: Performed By: #### C BC ####[facility] [address] [place], [place] [address]Dr. Brady Pérez NEUT # 3.8 103/ul Normal 1.4-6.5 [facility] Comment on above: Performed By: #### C BC ####[facility] [address] [place], [place] [id number] Pérez Neutrophils/100 WBC (Bld) 53.9 % Normal 43.0-75.0 [facility] Comment on above: Performed By: #### C BC ####[facility] [address] [place], [place] [id number] Pérez Platelet mean volume (Bld) [Entitic vol] 9.7 fL Normal 9.5-13.[address] [facility] Comment on above: Performed By: #### C BC ####[facility] [address] [place], [place] [address]Fb. Brady Pérez PLT 360 103/ul Normal 150-450 [facility] Comment on above: Performed By: #### C BC ####[facility] [address] [place], [place] [address]Wt. Brady Pérez RBC 4.71 106/ul Normal 4.20-5.40 [facility] Comment on above: Performed By: #### C BC ####[facility] [address] [place], [place] [address]Sx. Brady Pérez WBC 7.0 103/ul Normal 4.0-11.0 [facility] Comment on above: Performed By: #### C BC ####[facility] [address] [place], [place] [address]Dl. Brady Pérez CT STROKE HEAD WOon 12-28-19 CT STROKE HEAD WO EXAM: CT STROKE HEAD WO CLINICAL INDICATION: HEADACHE COMPARISON: None TECHNIQUE: Axial CT images of the brain were obtained without contrast. Dose reduction techniques were achieved by using automated exposure control and/or adjustment of mA and/or kV according to patient size and/or use of iterative reconstruction technique. FINDINGS: Brain parenchyma: No mass effect or midline shift is seen. Haney-white differentiation is maintained. No findings suspicious for intracranial hemorrhage. No findings suggesting acute stroke. Periventricular hypoattenuation / patchy white matter hypodensities are statistically most often related to small vessel ischemic disease. Ventricles and extra-axial spaces: Ventricles are concordant with sulci. No findings suggesting hydrocephalus. Visualized paranasal sinuses: No findings suggesting acute sinusitis. Mastoid air cells: Clear. Included portions of the orbits:Included portions of the orbits with no evidence of fracture or other acute pathology. Bones: No fracture is seen. Impression: 1. No evidence for an acute intracranial abnormality. Findings related to Dr. Platt at 5:14 AM on 12/27/2021. No findings suspicious for acute stroke by noncontrast head CT. If there is high suspicion for acute intracranial pathology, please note that magnetic resonance imaging or other additional evaluation may be more sensitive than noncontrast head CT. Electronically authenticated by: REJI GOULD Date: 2021-12-27 05:[address] [facility] CTA HEAD WO W CONon 12-28-19 22 CTA HEAD WO W CON EXAMINATION: CTA HEA D WO W CON, CTA NECK WO W CON CLINICAL INDICATION: Weakness. TECHNIQUE: CT angiography of the head and neck was then performed following intravenous administration of 75 cc of Omnipaque 350 injected at a rate of 5 cc/sec. Multiple MIP images in axial, coronal, and sagittal planes and 3D surfaced rendered images were then acquired using the source data. Automated dose lowering techniques and/or adjustment according to patient size were utilized for this examination. COMPARISON: CT head without contrast 12/27/2021. FINDINGS: CTA neck: A 3 vessel arch is shown. No evidence for flow-limiting stenosis along the origins of the great vessels. The right common carotid artery is patent without evidence for flow-limiting stenosis. There is an acute dissection noted of the right internal carotid artery with gradual tapering of the vessel with occlusion of the vessel at the level of the skull base with nonvisualization of the petrous segment with mild opacification noted of the mid cavernous segment likely secondary to retrograde flow. There is reconstitution of the vessel at the level of the supraclinoid ICA likely secondary to retrograde flow from the patent right A1 segment. The left common, internal and external carotid arteries are patent without evidence for flow-limiting stenosis. The left ECA is patent. The right PLASMA TABLE OPERATOR is patent. The right vertebral artery is hypoplastic, the left vertebral artery is dominant. The bilateral vertebral artery origins are patent. No evidence for flow-limiting stenosis along the extracranial course of the vertebral arteries. CTA HEAD: Occlusion of the right petrous ICA with faint opacification noted along the proximal to mid cavernous segment with reconstitution of the vessel along the right supraclinoid ICA likely from retrograde flow from the patent right A1 segment. The left intracranial portion of the ICA is patent. The bilateral M1 segments are patent. Bilateral A1 segments are patent. Hypoplastic right vertebral artery is patent. The left vertebral artery is dominant and is patent. The basilar artery is patent. The bilateral P1 segments are patent. IMPRESSION: 1. 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 There is nonopacification of the petrous segment with faint opacification noted along the proximal to mid cavernous segment with reconstitution of the vessel at the right supraclinoid ICA likely from retrograde flow from the patent right A1 segment. 2. The remainder of the major intracranial vessels demonstrate no evidence for high-grade stenosis, aneurysm or dissection. 3. No flow-limiting stenosis visualized within the left internal carotid artery. 4. 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 Findings relayed to Dr. Platt at 6:29 AM on 12/27/2021. Assessment of stenosis of the internal carotid arteries is based on NASCET criteria. Electronically authenticated by: REJI GOULD Date: 2021-12-27 06:39 Normal [facility] Covid-19 PCR (CVDTBH)on 12-18 SARS-CoV-2 (COVID-19) RNA BRETT+probe Ql (Unsp spec) Not detected Normal NOT DETECTED [facility] Comment on above: Result Comment: When diagnostic testing is negative, the possibility of a false negative should be considered in the context of a patient's recent exposures and the presence of clinical signs and symptoms consistent with SARS-CoV-2. This test is not yet approved or cleared by the [place] FDA. When there are no FDA-approved or cleared tests available, and other criteria are met, FDA can make tests available under an emergency access mechanism called an Emergency Use Authorization (EUA). The EUA for this test is supported by the [employer] of Health and Human Service's declaration that circumstances exist to justify the emergency use of in vitro diagnostics for the detection and/or diagnosis of the virus that causes COVID-19. This EUA will remain in effect for the duration of the COVID-19 declaration justifying emergency of IVDs, unless it is terminated or revoked by the FDA (after which the test may no longer be used). Performed By: #### C VDTBH #### [facility] [address] [place] [address] Dr. Brady Pérez PROF 14(COMP METB)on 022 Albumin [Mass/Vol] 4.0 g/dL Normal 3.4-5.0 [facility] Comment on above: Performed By: #### C MP #### [facility] [address] [place] [address] [address] [address] Brady Pérez Albumin/Globulin [Mass ratio] 1.1 {ratio} Normal [facility] Comment on above: Performed By: #### C MP #### [facility] [address] [place] [address] Dr. Brady Pérez ALP [Catalytic activity/Vol] 64 U/L Normal 46-[address] [facility] Comment on above: Performed By: #### C MP #### [facility] [address] [place] [address] Dr. Brady Pérez ALT [Catalytic activity/Vol] 29 U/L Normal 14-[address] [facility] [address] [facility] Comment on above: Performed By: #### C MP #### [facility] [address] [place] [address] Dr. Brady Pérez Anion gap [Moles/Vol] 11.9 mmol/L Normal [facility] Comment on above: Performed By: #### C MP #### [facility] [address] [place] [address] Dr. Brady Pérez AST [Catalytic activity/Vol] 16 U/L Normal 15-[address] [facility] Comment on above: Performed By: #### C MP #### [facility] [address] [place] [address] Dr. Brady Pérez Bilirubin [Mass/Vol] 1.1 mg/dL Critically high 0.2-1.[address] [facility] Comment on above: Performed By: #### C MP #### [facility] [address] [place] [address] Dr. Brady Pérez Calcium [Mass/Vol] 8.8 mg/dL Normal 8.5-10.1 [facility] Comment on above: Performed By: #### C MP #### [facility] [address] [place] [address] Dr. Brady Pérez Chloride [Moles/Vol] 104 mmol/L Normal 98-107 [facility] Comment on above: Performed By: #### C MP #### [facility] [address] [place] [address] Dr. Brady Pérez CO2 [Moles/Vol] 26.7 mmol/L Normal 21.0-32.0 [facility] Comment on above: Performed By: #### C MP #### [facility] [address] [address] [address] Brady Pérez Creatinine [Mass/Vol] 1.00 mg/dL Normal 0.55-1.[address] [facility] Comment on above: Performed By: #### C MP #### [facility] [address] [address] [address] Brady Péerz EGFR-AF KOSOVAN >60 Normal >=60 [facility] Comment on above: Performed By: #### C MP #### [facility] [address] [address] [address] Brady Pérez EGFR-NON AF KOSOVAN 57 mL/min/1.73m2 Critically low >=60 [facility] Comment on above: Performed By: #### C MP #### [facility] [address] [place] [address] Dr. Brady Pérez Globulin (S) [Mass/Vol] 3.5 g/dL Normal [facility] Comment on above: Performed By: #### C MP #### [facility] [address] [address] [address] Brady Pérez Glucose [Mass/Vol] 103 mg/dL Normal 74-106 [facility] Comment on above: Performed By: #### C MP #### [facility] [address] [place] [address] Dr. Brady Pérez Potassium [Moles/Vol] 4.6 mmol/L Normal 3.5-5.1 [facility] Comment on above: Performed By: #### C MP #### [facility] [address] [address] [address] Brady Pérez Protein [Mass/Vol] 7.5 g/dL Normal 6.4-8.2 [facility] Comment on above: Performed By: #### C MP #### [facility] [address] [address] [address] Brady Pérez Sodium [Moles/Vol] 138 mmol/L Normal 136-145 [facility] Comment on above: Performed By: #### C MP #### [facility] [address] [address] [address] Brady Pérez Urea nitrogen [Mass/Vol] 17.0 mg/dL Normal 7.0-18.[address] [facility] Comment on above: Performed By: #### C MP #### [facility] [address] [place] [address] Dr. Brady Pérez Urea nitrogen/Creatini ne [Mass ratio] 17.0 mg/mg Normal [facility] Comment on above: Performed By: #### C MP #### [facility] [address] [place] [address] Dr. Brady Pérez PROTIMEon 12-27-2021 INR Coag (PPP) [Relative time] 1.03 {INR} Normal [facility] Comment on above: Performed By: #### P TT, PT #### [facility] [address] [place] [address] Dr. Brady Pérez INR GUIDELINES SEE BELOW Normal [facility] Comment on above: Result Comment: GARRICK RED INR: 2.0 - 3.0 CONDITIONS NOT LISTED BELOW 2.5 - 3.5 FOR PROSTHETIC HEART VALVE REPLACEMENT 2.5 - 3.5 RECURRENT THROMBOSIS Performed By: #### P TT, PT #### [facility] [address] [place] [address] Dr. Brady Pérez PT Coag (PPP) [Time] 11.1 s Normal 9.0-11.6 [facility] Comment on above: Performed By: #### P TT, PT #### [facility] [address] [place] [address] Dr. Brady Préez PTTon 12-27-2021 aPTT Coag (Bld) [Time] 26.3 s Normal 22.3-36.2 [facility] Comment on above: Performed By: #### P TT, PT #### [facility] [address] [place] [address] Dr. Brady Pérez US ST HEAD_NECKon 09-10-[address] HEAD_NECK EXAM: US ST HEAD_NEC K HISTORY: Localized enlarged lymph nodes ; cervical lymphadenopathy for 2 months COMPARISON: None. TECHNIQUE: Ultrasound evaluation of neck soft tissues FINDINGS: Normal-appearing lymph nodes within the anterior cervical chains bilaterally corresponding to patient's area of palpable lump and tenderness. No mass or fluid collection. Incidental small colloid cysts seen within inferior pole of left thyroid lobe. IMPRESSION: 1. No abnormal-appearing or enlarged lymph nodes within the anterior cervical chain bilaterally. 2. No specific findings to account for patient's areas of tenderness. Electronically authenticated by: NICK KASPER Date: 2021-09-10 15:45 Normal [facility] XR CHEST 2 Von 09-10-2021 XR CHEST 2 V EXAM: XR CHEST 2 V HISTORY: Cough EXAM: XR CHEST 2 V INDICATION: 60 years old Female Cough COMPARISON: None. FINDINGS: The cardiac silhouette is normal. There is no pulmonary edema. The lungs are clear. There is no pneumonia. There is no pneumothorax. There is no abnormal foreign body. IMPRESSION: There is no acute abnormality. Electronically authenticated by: VINH UMANZOR Date: 2021-09-10 12:54 Normal [facility] Covid-19 PCR ([facility])on 08-18 SARS-CoV-2 (COVID-19) RNA BRETT+probe Ql (Unsp spec) Not detected Normal NOT DETECTED [facility] Comment on above: Result Comment: This test is not yet approved or cleared by the [place] FDA. When there are no FDA-approved or cleared tests available, and other criteria are met, FDA can make tests available under an emergency access mechanism called an Emergency Use Authorization (EUA). The EUA for this test is supported by the [place] of Health and Human Service's (HHS's) declaration that circumstances exist to justify the emergency use of in vitro diagnostics for the detection and/or diagnosis of the virus that causes COVID-19. This EUA will remain in effect (meaning this test can be used) for the duration of the COVID-19 declaration justifying emergency of IVDs, unless it is terminated or revoked by FDA (after which the test may no longer be used). When diagnostic testing is negative, the possibility of a false negative should be considered in the context of a patient's recent exposures and the presence of clinical signs and symptoms consistent with SARS-CoV-2. Performed By: #### [facility] ####[facility] [id number] [place], [place] [address]Zs. Brady Pérez Operative Reporton 7 Operative Report MR#: [id number] [facility] Pt. Name: Desi Knott Room #: PMC Discharge Date: Birthdate: 1960 OPERATIVE REPORTDATE OF SURGERY: 02/02/2017SURGEON: Hai Aburto M.D.ASSISTANTS: Wilmer RicoEDATION:Moderate sedation provided by Zach Please note Nursing charts for sedationprotocol.PREOPE RATIVE DIAGNOSIS:Cervico-occip ital neuralgiaPROCEDURE:Left greater occipital nerve block under ultrasound guidance.POSTOPERATIVE DIAGNOSIS:Cervico-occip ital neuralgiaESTIMATED BLOOD COUNT:None.COMPLICATION S:None.SPECIMENS:None.M ONITORS:Standard ASA monitors were placed during the entire procedure and theimmediate postoperative period. The patient was communicating with usthroughout the whole entire procedure.INFORMED CONSENT:The risks, benefits and alternatives of the procedure were discussed withthe patient. The patient was given opportunity to ask questions regardingthe procedure, its indications and the associated risks. The risks of theprocedure discussed include infection, bleeding, allergic reaction, duralpuncture, headache, nerve injuries, spinal cord injury, and cardiovascularand COMMISSIONING AGENT side effects with possibility of vascular entry of medications. Ialso informed the patient of potential side effects or reactions to themedications potentially used during the procedure including sedatives,narcotics, nonionic contrast agents, anesthetics, and corticosteroids. Thepatient was informed both verbally and in writing. The patient understoodthe informed consent and desired to have the procedure performed.PROCEDURE:Aft er obtaining consent, the patient was brought to the procedure room andwas placed in the prone position. I identified the superior nuchal lineunder ultrasound guidance. I prepped the area using chlorhexidine in theusual sterile fashion technique. I identified the pulsation of theoccipital artery. Then medial to the pulsation of the occipital artery, atthe level of the superior nuchal line, I prepped the area usingchlorhexidine in the usual sterile fashion technique. I used a 27-gaugeneedle. I advanced the needle until I had good position of the needle intothe area of the greater occipital nerve under ultrasound guidance. I hadnegative aspirate and negative paresthesia. I injected 4 mL of bupivacaine0.25% plus 20 mg of Depo-Medrol around the greater occipital nerve. Thepatient tolerated the procedure well and was transferred to the recoveryroom in stable condition.POSTPROCEDURE INSTRUCTIONS:Postproced ure vital signs and oximetry were stable. The patient wasdischarged with instructions to ice the injection site as needed for 15-20minutes, as frequently as twice per hour for the next day and to avoidaggressive activities for 1 day. The patient was told to resume allmedications. The patient was told to be in relative rest for 1 day, butthen could resume all normal activities.The patient was instructed to seek immediate medical attention forshortness of breath, chest pain, fever, chills, increased pain, weakness,sensory or motor changes, or changes in bowel or bladder function.Reviewed By:Wilmer Maria DO 02/02/2017 02:33 PElectronically Signed by:Hai Aburto M.D. 02/05/2017 11:04 A Hai Aburto M.D. I was present for the entire procedure. Date Dict: 02/02/2017/02:31 P/Jaydon Del [place] Trans: 02/02/2017 02:31 P/[id number]_[id number] c: Hai Aburto M.D. [address] [place] [address] [employer] [address] [place] [id number] [address] [facility] Operative Reporton 7 Operative Report MR#: [id number] [facility] Pt. Name: Desi Knott Room #: PMC Discharge Date: Birthdate: 1960 OPERATIVE REPORTDATE OF SURGERY: 01/19/2017SURGEON: Hai Aburto M.D.ASSISTANTS: Wilmer RicoEDATION:Moderate sedation provided by Zach Please note Nursing charts for sedationprotocol.PREOPE RATIVE DIAGNOSIS:Cervico-occip ital neuralgiaPROCEDURE:Left greater occipital nerve block under ultrasound guidance.POSTOPERATIVE DIAGNOSIS:Cervico-occip ital neuralgiaESTIMATED BLOOD COUNT:None.COMPLICATION S:None.SPECIMENS:None.M ONITORS:Standard ASA monitors were placed during the entire procedure and theimmediate postoperative period. The patient was communicating with usthroughout the whole entire procedure.INFORMED CONSENT:The risks, benefits and alternatives of the procedure were discussed withthe patient. The patient was given opportunity to ask questions regardingthe procedure, its indications and the associated risks. The risks of theprocedure discussed include infection, bleeding, allergic reaction, duralpuncture, headache, nerve injuries, spinal cord injury, and cardiovascularand COMMISSIONING AGENT side effects with possibility of vascular entry of medications. Ialso informed the patient of potential side effects or reactions to themedications potentially used during the procedure including sedatives,narcotics, nonionic contrast agents, anesthetics, and corticosteroids. Thepatient was informed both verbally and in writing. The patient understoodthe informed consent and desired to have the procedure performed.PROCEDURE:Aft er obtaining consent, the patient was brought to the procedure room andwas placed in the prone position. I identified the superior nuchal lineunder ultrasound guidance. I prepped the area using chlorhexidine in theusual sterile fashion technique. I identified the pulsation of theoccipital artery. Then medial to the pulsation of the occipital artery, atthe level of the superior nuchal line, I prepped the area usingchlorhexidine in the usual sterile fashion technique. I used a 27-gaugeneedle. I advanced the needle until I had good position of the needle intothe area of the greater occipital nerve under ultrasound guidance. I hadnegative aspirate and negative paresthesia. I injected 4 mL of bupivacaine0.25% plus 20 mg of Depo-Medrol around the greater occipital nerve. Thepatient tolerated the procedure well and was transferred to the recoveryroom in stable condition.POSTPROCEDURE INSTRUCTIONS:Postproced ure vital signs and oximetry were stable. The patient wasdischarged with instructions to ice the injection site as needed for 15-20minutes, as frequently as twice per hour for the next day and to avoidaggressive activities for 1 day. The patient was told to resume allmedications. The patient was told to be in relative rest for 1 day, butthen could resume all normal activities.The patient was instructed to seek immediate medical attention forshortness of breath, chest pain, fever, chills, increased pain, weakness,sensory or motor changes, or changes in bowel or bladder function.Reviewed By:Wilmer Maria DO 01/19/2017 03:18 PElectronically Signed by:Hai Aburto M.D. 02/05/2017 11:00 A Hai Aburto M.D. I was present for the entire procedure. Date Dict: 01/19/2017/03:14 P/ULYSSES Del Rioate Trans: 01/19/2017 03:14 P/DN_JN:[id number] Normal [facility] Vital Signs Date Time Vital Sign Value Performing Clinician Facility 11-03-2023 10:05-0400 Body height 162.56 cm [facility] 11-03-2023 10:05-0400 Body mass index (BMI) [Ratio] 23.4 kg/m2 [facility] 11-03-2023 10:05-0400 Body weight 61.91 kg [facility] 11-03-2023 10:05-0400 Diastolic blood pressure 82 mm[Hg] [facility] 11-03-2023 10:05-0400 Heart rate 57 /min [facility] 11-03-2023 10:05-0400 Respiratory rate 12 /min [facility] 11-03-2023 10:05-0400 Systolic blood pressure 135 mm[Hg] [facility] 07-31-2023 10:34-0400 Body height 162.56 cm [facility] 07-31-2023 10:34-0400 Body mass index (BMI) [Ratio] 23.5 kg/m2 [facility] 07-31-2023 10:34-0400 Body weight 62.19 kg [facility] 07-31-2023 10:34-0400 Diastolic blood pressure 90 mm[Hg] [facility] 07-31-2023 10:34-0400 Heart rate 52 /min [facility] 07-31-2023 10:34-0400 Respiratory rate 12 /min [facility] 07-31-2023 10:34-0400 Systolic blood pressure 156 mm[Hg] [facility] 05-08-2023 16:41-0500 Diastolic blood pressure 88 mm[Hg] [facility] 05-08-2023 16:41-0500 Systolic blood pressure 138 mm[Hg] [facility] 05-08-2023 15:38-0500 Body height 162.56 cm [facility] 05-08-2023 15:38-0500 Body mass index (BMI) [Ratio] 23.8 kg/m2 [facility] 05-08-2023 15:38-0500 Body weight 62.82 kg [facility] 05-08-2023 15:38-0500 Diastolic blood pressure 87 mm[Hg] [facility] 05-08-2023 15:38-0500 Heart rate 54 /min [facility] 05-08-2023 15:38-0500 Respiratory rate 12 /min [facility] 05-08-2023 15:38-0500 Systolic blood pressure 153 mm[Hg] [facility] 11-01-2022 15:30-0400 Body height 162.56 cm Zacarias Ball Other [facility] [employer] Other 11-01-2022 15:30-0400 Body mass index (BMI) [Ratio] 23 kg/m2 Zacarias Ball Other [facility] [employer] Other 11-01-2022 15:30-0400 Body weight 60.78 kg Zacarias Ball Other [facility] [employer] Other 11-01-2022 15:30-0400 Diastolic blood pressure 83 mm[Hg] Zacarias Ball Other [facility] [employer] Other 11-01-2022 15:30-0400 Respiratory rate 12 /min Zacarias Ball Other [facility] [employer] Other 11-01-2022 15:30-0400 Systolic blood pressure 137 mm[Hg] Zacarias Ball Other [employer] Other 08-01-2022 15:00-0400 Body height 162.56 cm Zacarias Ball Other [employer] Other 08-01-2022 15:00-0400 Body mass index (BMI) [Ratio] 22.93 kg/m2 Zacarias Ball Other [employer] Other 08-01-2022 15:00-0400 Body weight 60.6 kg Zacarias Ball Other [employer] Other 08-01-2022 15:00-0400 Diastolic blood pressure 81 mm[Hg] Zacarias Ball Other [employer] Other 08-01-2022 15:00-0400 Respiratory rate 12 /min Zacarias Ball Other [employer] Other 08-01-2022 15:00-0400 Systolic blood pressure 137 mm[Hg] Zacarias Ball Other [employer] Other 06-13-2022 15:00-0400 Body height 162.56 cm Zacarias Ball Other [employer] Other 06-13-2022 15:00-0400 Body mass index (BMI) [Ratio] 22.76 kg/m2 Zacarias Ball Other [employer] Other 06-13-2022 15:00-0400 Body weight 60.15 kg Zacarias Ball Other [employer] Other 06-13-2022 15:00-0400 Diastolic blood pressure 92 mm[Hg] Zacarias Ball Other [employer] Other 06-13-2022 15:00-0400 Respiratory rate 12 /min Zacarias Ball Other [employer] Other 06-13-2022 15:00-0400 Systolic blood pressure 154 mm[Hg] Zacarias Ball Other [employer] Other 05-02-2022 15:00-0500 Body height 162.56 cm Zacarias Ball Other [employer] Other 05-02-2022 15:00-0500 Body mass index (BMI) [Ratio] 22.55 kg/m2 Zacarias Ball Other [employer] Other 05-02-2022 15:00-0500 Body weight 59.6 kg Zacarias Ball Other [employer] Other 05-02-2022 15:00-0500 Diastolic blood pressure 90 mm[Hg] Zacarias Ball Other [employer] Other 05-02-2022 15:00-0500 Respiratory rate 12 /min Zacarias Ball Other [employer] Other 05-02-2022 15:00-0500 Systolic blood pressure 132 mm[Hg] Zacarias Ball Other [employer] Other Encounters Encounter Date Encounter Type Care Provider Facility Start: 11-03-2023 End: 11-03-2023 ambulatory [facility] Work Phone: Start: 11-03-2023 End: 11-03-2023 Encounter for general adult medical examination without abnormal findings [facility] Start: 11-03-2023 End: 11-03-2023 Patient encounter procedure [facility] Work Phone: Start: 07-31-2023 End: 07-31-2023 ambulatory [facility] Work Phone: Start: 07-31-2023 End: 07-31-2023 Patient encounter procedure [facility] Work Phone: Start: 05-31-2023 Non-patient / Non-visit [facility] Work Phone: Start: 05-08-2023 End: 05-08-2023 ambulatory [facility] Work Phone: Start: 05-08-2023 End: 05-08-2023 Patient encounter procedure [facility] Work Phone: Start: 01-02-2023 End: 01-02-2023 ambulatory Zacarias Stallings Other [employer] Other Start: 01-02-2023 Telephone encounter [facility]acarias Chandrakant [facility] Start: 12-22-2022 End: 12-22-2022 ambulatory Zacarias Stallings Other [employer] Other Start: 12-22-2022 Telephone encounter Zacarias Stallings [facility] Start: 11-08-2022 End: 11-08-2022 ambulatory Zacarias Stallings Other [employer] Other Start: 11-08-2022 Telephone encounter Zacarias Stallings [facility] Start: 11-01-2022 End: 11-01-2022 ambulatory Zacarias Stallings Other [employer] Other Start: 11-01-2022 Encounter for genera l adult medical examination without abnormal findings Zacarias Stallings [facility] Start: 11-01-2022 Periodic preventive med est patient 40-64yrs Zacarias Ball [facility] Start: 08-01-2022 End: 08-01-2022 ambulatory Zacarias Ball Other [employer] Other Start: 08-01-2022 Office outpatient vi sit 15 minutes Zacarias Ball [facility] Start: 06-29-2022 Telephone encounter [facility]acarias Stallings [facility] Start: 06-29-2022 End: 06-29-[address] MARV ACEVEDO . [facility] Other Start: 06-13-2022 End: 06-13-2022 ambulatory Zacarias Stallings Other [employer] Other Start: 06-13-2022 Office outpatient vi sit 25 minutes Zacarias Stallings [facility] Start: 05-17-2022 End: 05-17-2022 ambulatory Zacarais Stallings Other [employer] Other Start: 05-17-2022 Telephone encounter Zacarias Stallings [facility] Start: 05-02-2022 End: 05-02-2022 ambulatory Zacarias Stallings Other [employer] Other Start: 05-02-2022 Office outpatient vi sit 25 minutes Zacarias Stallings [facility] Start: 03-24-2022 End: 03-24-2022 ambulatory Zacarias Stallings Other [employer] Other Start: 03-24-2022 Telephone encounter Zacarias Stallings [facility] Start: 03-22-2022 End: 03-22-2022 ambulatory Zacarias Stallings Other [employer] Other Start: 03-22-2022 Telephone encounter [facility]arias LÓPEZ [facility] Start: 02-11-2022 End: 02-12-[address] ZACARIAS STALLINGS Facility:[facility] Start: 02-09-2022 Encounter for genera l adult medical examination without abnormal findings DR ZACARIAS STALLINGS [facility] Start: 02-05-2022 End: 02-06-[address] ZACARIAS STALLINGS Facility:[facility] Start: 02-05-2022 End: 02-06-2022 Encounter for general adult medical examination without abnormal findings DR ZACARIAS STALLINGS Facility:[facility] Start: 12-27-2021 End: 12-27-[address] PANDA PLATT Facility:[facility] Start: 09-10-2021 End: 09-11-[address] ZACARIAS STALLINGS Facility:[facility] Start: 09-02-[address] ZACARIAS STALLINGS Facili ty:[facility] Start: 08-31-2021 End: 08-31-[address] ZACARIAS STALLINGS Facility:[facility] Start: 02-02-2017 End: 02-03-2017 Ambulatory HAI ABURTO Facility:[facility] Start: 01-19-2017 End: 01-20-2017 Ambulatory HAI ABURTO Facility:[facility] Procedures Date Procedure Procedure Detail Performing Clinician Screening for malign ant neoplasm of cervix Zacarias Stallings Other Screening for malign ant neoplasm of colon Zacarias Stallings Other Immunizations Immunization Date Immunization Notes Care Provider Fa cility 01-26-2021 COVID-19 Vaccine Moderna - Documentation Purposes Only Zacarias Stallings Other [facility] 12-29-2020 COVID-19 Vaccine Moderna - Documentation Purposes Only Zacarias Stallings Other [facility] 02-20-2015 influenza virus vaccine, split virus (incl. purified surface antigen) Zacarias Stallings Other [employer] Other 02-20-2015 influenza virus vaccine, unspecified formulation [facility] Payers Date Payer Category Payer Unknown [id number] 2.16.84 [id number] 1960 Unknown [id number] 2.16.84 [id number] 1960 Unknown [id number] 2.16.84 [id number] 1960 Unknown [id number] 2.16.84 [id number] 1960 Unknown [id number] 2.16.84 [id number] 1960 Unknown [id number] 2.16.84 [id number] 1960 Unknown [id number] 2.16.84 [id number] 1958 Self-pay 1958 Unknown [id number] 1958 Unknown [id number] [id number] Social History Date Type Detail Facility Sex Assigned At [employer] [facility] [employer] Other Start: 05-08-2023 End: 05-08-2023 Tobacco smoking status MTIS Never smoked tobacco (finding) [facility] Start: 1960 Sex Assigned At Female F [facility] Clinical Notes 03-22-2022 to 12-22-2022 Note Date & Type Note Facility 12-22-2022 Evaluation note Encounter Date Diagnosis Assessment Notes Dec, Hyperlipidemia type II (ICD-10 - E78.01) [facility] Other 08-22-2023 Evaluation note* Encounter Date Diagnosis Assessment Notes Treatment Notes Treatment Clinical Notes Oct, Elevated cholesterol (ICD-10 - E78.00) [facility] Other 08-15-2023 Evaluation note* Encounter Date Diagnosis Assessment Notes Treatment Notes Treatment Clinical Notes Oct, Primary hypertension (ICD-10 - I10) This patient is instructed to consume a healthy, low-fat, low-salt diet. They are also encouraged to continue exercise to achieve/maintain a normal BMI. Oct, Wellness examination (ICD-10 - Z00.00) Healthy diet and exercise. Reviewed age-appropriate preventive testing recommended. Oct, Hyperlipidemia type II (ICD-10 - E78.01) Instructed on diet and exercise with continued statin therapy.Discussed the beneficial effects of lowering cholesterol in reducing the risk for cerebrovascular and cardiovascular disease. Oct, Migraine with aura, not intractable, without status migrainosus (ICD-10 - G43.109) Much improved. Counseled against overuse of medication Oct, Cerebral infarction due to stenosis of right carotid artery (ICD-10 - I63.231) Minimal residual deficit. BP under much better control and she has discontinued tobacco use. Continue secondary prevention measures. Oct, Cervical spondylosis (ICD-10 - M47.812) ROM exercises, heat/ice and continue Baclofen as needed at HS. Avoid manipulation Oct, Cigarette nicotine dependence in remission (ICD-10 - F17.211) Continue Abstinence They are aware of the hazards associated with tobacco use, including but not limited to respiratory infections, vascular disease and cancers. [employer] Other 05-15-2023 Evaluation note* Encounter Date Diagnosis Assessment Notes Treatment Notes Treatment Clinical Notes July, Cigarette nicotine dependence, uncomplicated (ICD-10 - F17.210) This patient has been encouraged to quit tobacco use immediately. They are aware of the hazards associated with tobacco use, including but not limited to respiratory infections, vascular disease and cancers. July, Primary hypertension (ICD-10 - I10) This patient is instructed to consume a healthy, low-fat, low-salt diet. They are also encouraged to continue exercise to achieve/maintain a normal BMI. Continue present treatment - CCB, ARB, BB, diuretic, clonidine July, Hyperlipidemia type II (ICD-10 - E78.01) Instructed on diet and exercise with continued statin therapy.Discussed the beneficial effects of lowering cholesterol in reducing the risk for cerebrovascular and cardiovascular disease. [employer] Other 04-12-2023 Evaluation note* Encounter Date Diagnosis Assessment Notes Treatment Notes Treatment Clinical Notes Jun, Essential hypertension (ICD-10 - I10) [employer] Other 03-27-2023 Evaluation note* Encounter Date Diagnosis Assessment Notes Treatment Notes Treatment Clinical Notes May, Essential hypertension (ICD-10 - I10) This patient is instructed to consume a healthy, low-fat, low-salt diet. They are also encouraged to continue exercise to achieve/maintain a normal BMI. Increase Losartan to 50mg bid and call in couple weeks w/ update May, Cerebral infarction due to stenosis of right carotid artery (ICD-10 - I63.231) Continue ASA. Continue secondary prevention measures: LDL < 70, BP < 140/90 and stop tobacco use May, Hyperlipidemia type II (ICD-10 - E78.01) Diet and exercise with continued statin therapy. May, Cigarette nicotine dependence, uncomplicated (ICD-10 - F17.210) This patient has been encouraged to quit tobacco use immediately. They are aware of the hazards associated with tobacco use, including but not limited to respiratory infections, vascular disease and cancers. May, Migraine with aura, not intractable, without status migrainosus (ICD-10 - G43.109) Stable w/o exacerbations. 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 d/c tobacco use, restrict salt use and avoid NSAIDs, Sudafed [employer] Other 02-28-2023 Evaluation note* Encounter Date Diagnosis Assessment Notes Treatment Notes Treatment Clinical Notes Apr, Essential hypertension (ICD-10 - I10) [employer] Other 02-13-2023 Evaluation note* Encounter Date Diagnosis Assessment Notes Treatment Notes Treatment Clinical Notes Apr, Essential hypertension (ICD-10 - I10) This patient is instructed to consume a healthy, low-fat, low-salt diet. They are also encouraged to continue exercise to achieve/maintain a normal BMI. Apr, Cigarette nicotine dependence, uncomplicated (ICD-10 - F17.210) This patient has been encouraged to quit tobacco use immediately. They are aware of the hazards associated with tobacco use, including but not limited to respiratory infections, vascular disease and cancers. Apr, Hyperlipidemia type II (ICD-10 - E78.01) Diet and exercise with continued statin therapy. Apr, Unilateral occipital headache (ICD-10 - R51.9) Secondary to cervical spine disease. Monitor for now. Apr, Cervical spondylosis with radiculopathy (ICD-10 - M47.22) ROM exercises, heat/ice and Tylenol Apr, Cerebral infarction due to stenosis of right carotid artery (ICD-10 - I63.231) Continue secondary prevention measures: - ASA daily - Statin therapy - improve BP control - stop tobacco use [employer] Other 01-05-2023 Evaluation note* Encounter Date Diagnosis Assessment Notes Treatment Notes Treatment Clinical Notes Mar, Essential hypertension (ICD-10 - I10) [employer] Other 01-03-2023 Evaluation note* Encounter Date Diagnosis Assessment Notes Treatment Notes Treatment Clinical Notes Mar, Essential hypertension (ICD-10 - I10) Mar, Cerebral infarction due to stenosis of right carotid artery (ICD-10 - I63.231) [employer] Other [facility]No [facility] Other Evaluation noteNo assessment information available [facility] Work Phone: Evaluation note* Diagnosis Onset Date Resolution Status Cerebral infarction due to s tenosis of right carotid artery acute Hyperlipidemia acute Nicotine dependence acute Primary hypertension acute Knee pain, bilateral noneact piedad Sore throat noneactive [facility] Work Phone: Evaluation note* Diagnosis Onset Date Resolution Status Cerebral atherosclerosis acu te Hyperlipidemia acute Nicotine dependence acute Palpitation acute Primary hypertension acute Wellness examination noneact piedad [facility] Work Phone: History general Narrative - Reported* Type Description Date Medical History Cerebral infarction due to stenosis of right carotid artery Medical History Dissection of right carotid sailaja ry Medical History Cigarette nicotine dependence, u ncomplicated Medical History Migraine with aura, not intractable, without status migrainosus Medical History Essential hypertension Medical History Menopause Medical History COVID Medical History Cough Medical History Eustachian tube dysfunction, rig ht Medical History Anterior cervical adenopathy Medical History Subconjunctival hemorrhage of le ft eye Medical History Frequency of urination Medical History Cervical cancer screening Medical History Acute mastitis of left breast Medical History Hyperlipidemia type II Medical History Left carotid bruit Medical History Hyperparathyroidism, primary Medical History Elevated blood pressure (not hyp ertension) Medical History Cervical spondylosis with radicu lopathy Medical History Irritable bowel syndrome with co nstipation Surgical History appendectomy 2010 Surgical History wrist surgery (left) Surgical History exploratory stomach surgery Surgical History tubal ligation Surgical History parathyroidectomy 01/08/2019 Hospitalization History see above surgical histo ry [employer] Other History general Narrative - Reported* Type Description Date Medical History Cerebral infarction due to stenosis of right carotid artery Medical History Dissection of right carotid sailaja ry Medical History Cigarette nicotine dependence, u ncomplicated Medical History Migraine with aura, not intractable, without status migrainosus Medical History Essential hypertension Medical History Menopause Medical History COVID Medical History Cough Medical History Eustachian tube dysfunction, rig ht Medical History Anterior cervical adenopathy Medical History Subconjunctival hemorrhage of le ft eye Medical History Frequency of urination Medical History Cervical cancer screening Medical History Acute mastitis of left breast Medical History Hyperlipidemia type II Medical History Left carotid bruit Medical History Hyperparathyroidism, primary Medical History Elevated blood pressure (not hyp ertension) Medical History Cervical spondylosis with radicu lopathy Medical History Irritable bowel syndrome with co nstipation Surgical History appendectomy 2009 Surgical History wrist surgery (left) Surgical History exploratory stomach surgery Surgical History tubal ligation Surgical History parathyroidectomy 01/08/2019 Surgical History Colonoscopy 02/2015 Hospitalization History see above surgical histo ry [employer] Other Summary Purpose Family History Relationship Condition Age at Onset Recorded Date/T francine father Arthritis Unknown Malignant melanoma Unknown Cerebrovascular accident (CVA) Unknown Hypertension Unknown Heart disease Unknown Not Specified Asthma Unknown Presence of cardiac pacemaker Unknown Malignant neoplasm of kidney Unknown Malignant neoplasm Unknown brother Hypertension Unknown sister Hypertension Unknown Relationship Condition Age at Onset Recorded Date/T francine father Arthritis Unknown Malignant melanoma Unknown Cerebrovascular accident (CVA) Unknown Hypertension Unknown Heart disease Unknown mother Asthma Unknown Presence of cardiac pacemaker Unknown Malignant neoplasm of kidney Unknown Malignant neoplasm Unknown brother Hypertension Unknown sister Hypertension Unknown Advance Directives Advance Directive Response Recorded Date/ Time Advance Directives No December 29, 2018 8:46am Advance Directive Response Recorded Date/ Time Advance Directives No December 29, 2018 9:46am Chief Complaint and Reason for Visit Chief Complaint 6 month Chief Complaint 6 month Amb Documentation eye irritation Reason for Visit Cerebral infarction due to stenosis of right carotid artery Hyperlipidemia Nicotine dependence Primary hypertension Knee pain, bilateral Sore throat Chief Complaint Wellness Reason for Visit Cerebral atheroscler osis Hyperlipidemia Nicotine dependence Palpitation Primary hypertension Wellness examination Additional Source Comments INFORMATION SOURCE (unrecogn ized section and content) DATE CREATED AUTHOR 09/12/2017 [facility] DATE CREATED AUTHOR AUTHOR'S ORGANIZ ATION 07/02/2022 [facility] REASON FOR VISIT (unrecogniz ed section and content) LabsLab Results3 month Follo w up1 month/BP checkER1 month Follow upBP readings6 week follow up appointment Care Teams (unrecognized sec tion and content) Team Status: Active Member Role Status Dates Zacarias Stallings DO Primary Care Provider Active Team Status: Inactive Member Role Status Dates Zacarias Stallings DO Primary Care Provide r, Attending Provider Active Start: May 08, 2023 End: May 08, 2023 Team Status: Active Member Role Status Dates Zacarias Chandrakant , Primary Care Provider Active Start: May 31, 2023 IRAIS Quiroz Attending Provider Active Start : May 31, 2023 Team Status: Inactive Member Role Status Dates Zacarias Stallings , DO Primary Care Provide r, Attending Provider Active Start: July 31, 2023 End: July 31, 2023 Team Status: Inactive Member Role Status Dates Zacarias Stallings , DO Primary Care Provide r, Attending Provider Active Start: November 03, 2023 End: November 03, 2023 Goals (unrecognized section and content) Goals may be documented in a n alternate section FOR RECORDS PERTAINING TO PATIENTS WHO ARE OR HAVE BEEN ENROLLED IN A CHEMICAL DEPENDENCY/SUBSTANCEABUSE PROGRAM, SOME INFORMATION MAY BE OMITTED. This clinical summary was aggregated from multiple sources. Caution should be exercised in using it in the provision of clinical care. This summary normalizes information from multiple sources, and as a consequence, information in this document may materially change the coding, format and clinical context of patient data. In addition, data may be omitted in some cases. CLINICAL DECISIONS SHOULD BE BASED ON THE PRIMARY CLINICAL RECORDS. [employer] [facility]. provides no warranty or guarantee of the accuracy or completeness of information in this document.
[2023-11-27 07:49] LABS: Basophils Absolute Auto 0.1 10^3/uL (0.0-0.1); Basophils Percent Auto 1.2 % (0.2-2.0); Eosinophils Absolute Auto 0.2 10^3/uL (0.0-0.7); Eosinophils Percent Auto 2.9 % (0.9-7.0); Hematocrit 42.3 % (36.0-48.0); Hemoglobin 14.2 g/dL (12.0-16.0); Immature Granulocytes Abs Auto 0.02 10^3/uL (0.00-0.03); Immature Granulocytes Pct Auto 0.3 % (0.0-0.5); Lymphocytes Absolute Auto 3.2 10^3/uL (1.2-3.8); Lymphocytes Percent Auto 47.7 % (20.5-60.0); Mean Corpuscular HGB Conc 33.6 g/dL (29.9-35.2); Mean Corpuscular Volume 92.4 fL (81.0-99.0); Mean Platelet Volume 9.6 fL (9.5-13.5); Monocytes Absolute Auto 0.7 10^3/uL (0.3-0.8); Monocytes Percent Auto 10.7 % (1.7-12.0); Neutrophils Absolute Auto 2.5 10^3/uL (1.4-6.5); Neutrophils Percent Auto 37.2 % (43.0-75.0); Platelet Count 332 10^3/uL (150-450); Red Blood Count 4.58 10^6/uL (4.20-5.40); Red Cell Distribution Width 12.9 % (11.0-15.0); White Blood Count 6.6 10^3/uL (4.0-11.0)
[2023-11-27 07:54] LABS: Erythrocyte Sedimentation Rate 26 mm/hr (<=30)
[2023-11-27 08:20] LABS: Estimated Average Glucose 117 mg/dL; Glycohemoglobin A1C 5.7 % (4.5-6.2)
[2023-11-27 08:45] LABS: Alanine Aminotransferase 63 U/L (14-59); Albumin Globulin Ratio 1.3; Albumin Level 4.1 g/dL (3.4-5.0); Alkaline Phosphatase 74 U/L (46-116); Anion Gap 14.7; Aspartate Amino Transferase 46 U/L (15-37); BUN Creatinine Ratio 18.4; Bilirubin Total 0.9 mg/dL (0.2-1.0); Calcium 9.5 mg/dL (8.5-10.1); Carbon Dioxide 28.3 mmol/L (21.0-32.0); Chloride 103 mmol/L (98-107); Chol HDL Ratio 1.9; Cholesterol 159 mg/dL (<=200); Estimated GFR (African America >60 (>=60); Estimated GFR (Non-African Ame 58 (>=60); Globulin 3.2 g/dL; Glucose 96 mg/dL (74-106); HDL Cholesterol 85 mg/dL (40-60); Sodium 142 mmol/L (136-145); Thyroid Stimulating Hormone 1.633 uIU/mL (0.358-3.740); Total Protein 7.3 g/dL (6.4-8.2); Triglycerides 142 mg/dL (<=150); VLDL CHOLESTEROL 28.4 mg/dL
[2023-11-28 12:09] LABS: ANA Direct Negative (Negative)
[2023-11-28 15:09] LABS: Anti-CCP Ab, IgG/IgA 7 units (0-19)
== END 2023-11-27 07:06 | disposition home or self-care (01) ==
LOC: LAB 07:05
PROVIDERS: PCP Internal Medicine; Visit Provider Internal Medicine
DX: Z00.00 Encounter for general adult medical examination without abnormal findings (principal)
CPT/HCPCS: 36415; 80053; 80061; 83036; 84443; 85025; 85652; 86038; 86200

== ENCOUNTER 2024-12-06 08:02 | Outpatient (OUT) | payer OTHER, SELFPAY ==
--- OUTSIDE RECORDS SUMMARY | 2024-12-06 08:06 | XMS_ITS | CCD ---
Author Organization [facility] Care Team Providers Care Laundry Machine Mechanic Name Role Phone CRISELDA, HAI N Unavailable Unavailable CRISELDA, HIA N Unavailable Unavailable SELF, REFERRED Unavailable Unavailable SELF, REFERRED Unavailable Unavailable CRISELDA, HAI N Unavailable Unavailable CRISELDA, HAI N Unavailable Unavailable CRISELDA, HAI N Unavailable Unavailable SELF, REFERRED Unavailable Unavailable Zacarias Stallings Unavailable KRISTINA Davila, DR FAIR Consulting Unavailable HAY ., DR FAIR Admitting Unavailable HAY ., DR FAIR Attending Unavailable BALL, DR LEVY Primary Care Unavailable LIZ, DR [...] LEVY Primary Care Unavailable BALL, DR LEVY Primary Care Unavailable BALL, DR LEVY Admitting Unavailable BALL, DR LEVY Attending Unavailable BALL, DR LEVY Consulting Unavailable ZIEBER, DR NICK Philippe Consulting Unavailable BROWN, MARGO Consulting Unavailable BALL, DR LEVY Primary Care Unavailable BALL, DR LEVY Admitting Unavailable BALL, DR LEVY Attending Unavailable BALL, DR LEVY Consulting Unavailable Ball Zacarias BERUMEN Primary Care Provider Zacarias Stallings DO Attending Provider Allergies Allergy Classification Reported Allergen(s) Allergy Type Date of Onset Reaction(s) Facility (12 sources) Acetaminophen / Aspirin / Caffeine / salicylamide Drug Allergy rash [facility] Other (18 sources) Codeine Drug Allergy 05-08-19 24 Unknown, Itching, hallucinations [facility] (18 sources) HYDROmorphone Drug Allergy 05-08-19 24 Unknown, Unknown Reaction [facility] (12 sources) NITROFURANTOIN, MACROCRYSTALS / Nitrofurantoin, Monohydrate Drug Allergy Unknown [facility] [employer] Other (18 sources) Sulfacetamide Drug Allergy 05-08-19 24 [facility] (18 sources) zonisamide Drug Allergy 05-08-19 24 Unknown, Chest Pain, dyspnea [facility] (1 source) Codeine Drug Allergy [facility] (1 source) HYDROmorphone Drug Allergy [facility] (1 source) Ketorolac Drug Allergy [facility] (1 source) Meperidine Drug Allergy [facility] (1 source) Sulfonamides (Antibiotic) Drug allergy (disorder) [facility] (4 sources) Substance with sulfonamide structure and antibacterial mechanism of action (substance) Drug allergy 01-28-20 15 Unknown [facility] Other (6 sources) Acetaminophen Drug Allergy 05-08-19 24 Itching, dyspnea, redness of face [facility] (6 sources) HYDROcodone Drug Allergy 05-08-19 24 Itching, dyspnea, redness of face [facility] (6 sources) Nitrofurantoin Drug Allergy 05-08-19 24 Unknown Reaction [facility] (6 sources) Sulfonamides (Antibiotic) Allergy to substance 05-08-19 24 Itching, rash , dyspnea [facility] Comment on above: Onset Date: 01/28/20 15 (6 sources) Pain Relief Allergy to substance 11-02-19 23 [facility] Medications Current Medications Medication Drug Class(es) Dates Sig (Normalized) Sig (Original) amLODIPine 5 mg oral tablet (19 sources) Dihydropyridine Calcium Channel [facility] Start: 05-13-2024 take 1 tablet by mouth twice daily Amlodipine 5 mg tablet Active 0 .ROUTE .COMPLEX 180 May 13, 2024 7:40pm TAKE 1 TABLET BY MOUTH TWICE DAILY Complies with drug therapy Start: 05-06-2023 End: 05-13-2024 take 1 tablet by mouth twice daily Amlodipine 5 mg tablet Discontinued 5 MG PO Twice daily May 06, 2023 1:00am May 13, 2024 7:40pm take 1 tablet by thor th twice daily amLODIPine Besylate 5 MG 1 tablet Orally twice daily Active aspirin 81 mg chewable tablet (20 sources) Platelet Aggregation Inhibitor, Nonsteroidal Anti-inflammatory Drug Start: 02-15-2024 take 1 tablet by mouth once daily Aspirin 81 mg tablet,chewable Active 0 .ROUTE .COMPLEX February 15, 2024 9:38am CHEW AND SWALLOW 1 (ONE) TABLET BY MOUTH DAILY Complies with drug therapy Start: 05-06-2023 End: 02-15-2024 take 1 tablet by mouth once daily Aspirin 81 mg tablet,chewable Discontinued 81 MG PO Daily May 06, 2023 1:00am February 15, 2024 9:38am take 1 tablet by thor th once daily Aspirin 81 81 MG 1 tablet Orally Once a day Active atorvastatin 20 mg oral tablet (14 sources) HMG-CoA Reductase Inhibitor Start: 05-31-2023 End: 05-30-2024 take 1 tablet by mouth in the evening Atorvastatin 20 mg tablet Active 0 .ROUTE .COMPLEX May 30, 2024 12:49pm TAKE 1 TABLET BY MOUTH IN THE EVENING Complies with drug therapy Start: 05-31-2023 take 1 tablet by thor th in the evening Atorvastatin Active 0 .ROUTE .COMPLEX May 31, 2023 4:29pm TAKE 1 TABLET BY MOUTH IN THE EVENING Start: 05-31-2023 End: 05-31-2023 take 1 tablet by mouth once daily Atorvastatin 20 mg tablet Discontinued 20 MG PO Daily May 31, 2023 12:00am May 31, 2023 4:29pm take 1 tablet by thor th once daily in the evening Atorvastatin Calcium 20 MG 1 tablet Orally daily in evening for 30 days Active baclofen 10 mg oral tablet (20 sources) gamma-Aminobutyric Acid-ergic Agonist Start: 08-18-2023 End: 08-27-2024 take 1 tablet by mouth once daily as needed Baclofen 10 mg tablet Active 0 .ROUTE .COMPLEX August 27, 2024 8:41pm TAKE 1 TABLET BY MOUTH DAILY NEEDED Complies with drug therapy Start: 05-06-2023 End: 08-18-2023 take 1 tablet by mouth once daily as needed Baclofen 10 mg tablet Discontinued 10 MG PO Daily as needed May 06, 2023 1:00am August 18, 2023 1:19pm Start: 03-22-2022 take 1 tablet by thor th every twenty-four hours Baclofen 10 MG 1 tablet as needed Orally Once a day for 90 days Mar, Active bisoprolol fumarate 10 mg / hydroCHLOROthiazide 6.25 mg oral tablet (20 sources) Thiazide Diuretic, beta-Adrenergic [facility] Start: 11-29-2023 take 1 tablet by mouth once daily Bisoprolol-Hydrochlorothiazide 10-6.25 mg tablet Active 0 .ROUTE .COMPLEX November 29, 2023 7:32am TAKE 1 TABLET BY MOUTH ONCE DAILY Complies with drug therapy Start: 11-29-2023 take 1 tablet by thor th once daily Bisoprolol-Hydrochlorothiazide 10-6.25 m g tablet Active 0 .ROUTE .COMPLEX November 29, 2023 6:32am TAKE 1 TABLET BY MOUTH ONCE DAILY Start: 05-06-2023 End: 11-29-2023 take 1 tablet by mouth once daily Bisoprolol-Hydrochlorothiazide 10-6.25 m g tablet Discontinued 1 TAB PO Daily May 06, 2023 1:00am November 29, 2023 7:32am Start: 05-02-2022 take 1 tablet by thor th every twenty-four hours Bisoprolol-hydroCHLOROthiazide 5-6.25 MG 1 tablet Orally Once a day for 30 day(s) Apr, Active take 1 tablet by thor th once daily Bisoprolol-hydroCHLOROthiazide 10-6.25 M G TAKE 1 TABLET BY MOUTH ONCE DAILY for 30 Active cloNIDine hydrochloride 0.1 mg oral tablet (20 sources) Central alpha-2 Adrenergic Agonist Start: 09-28-2023 take 1 tablet by mouth every twelve hours Clonidine Hcl Active 0 .ROUTE .COMPLEX 180 September 28, 2023 4:24pm TAKE 1 TABLET BY MOUTH EVERY 12 HOURS Start: 09-27-2023 End: 09-26-2024 take 1 tablet by mouth every twelve hours Clonidine Hcl 0.1 mg tablet Active 0 .ROUTE .COMPLEX 180 September 26, 2024 2:15pm TAKE 1 TABLET BY MOUTH EVERY 12 HOURS Complies with drug therapy Start: 09-27-2023 End: 09-28-2023 take 1 tablet by mouth every twelve hours Clonidine Hcl Discontinued 0 .ROUTE .COMPLEX 180 September 27, 2023 6:17pm September 28, 2023 4:24pm TAKE 1 TABLET BY MOUTH EVERY 12 HOURS Start: 05-06-2023 End: 09-27-2023 take 1 tablet by mouth every twelve hours Clonidine Hcl 0.1 mg tablet Discontinued 0.1 MG PO Every 12 hours May 06, 2023 1:00am September 27, 2023 6:17pm Start: 06-29-2022 take 1 tablet by thor every twelve hours cloNIDine HCl 0.1 MG 1 tablet Orally every 12 hours Jun, Active losartan potassium 50 mg oral tablet (20 sources) Angiotensin 2 Receptor [facility] Start: 12-03-2023 take 1 tablet by mouth twice daily Losartan 50 mg tablet Active 0 .ROUTE .COMPLEX 60 December 03, 2023 5:47pm TAKE 1 TABLET BY MOUTH TWICE DAILY Complies with drug therapy Start: 05-06-2023 End: 12-03-2023 take 1 tablet by mouth twice daily Losartan 50 mg tablet Discontinued 50 MG PO Twice daily May 06, 2023 1:00am December 03, 2023 5:47pm take 1 tablet by thor twice daily Losartan Potassium 50 MG 1 tablet Orally twice daily for 30 days Active take 1 tablet by thor twice daily Losartan Potassium 25 MG 1 tablet Orally twice daily Active magnesium oxide 400 mg oral tablet (18 sources) Start: 05-06-2023 take 1 tablet by mouth once daily Magnesium Oxide 400 mg (241.3 mg magnesium) tablet Active 400 MG PO Daily May 06, 2023 1:00am Complies with drug therapy Magnesium Oxide 400 MG 1 Orally Once a day for 90 days Active Prepopik 10-3.5-12 MG-GM-GM (12 sources) Start: 02-18-2015 SUMAtriptan (12 sources) Serotonin-1b and Serotonin-1d Receptor Agonist Imitrex Active warfarin sodium 5 mg oral tablet (5 sources) Vitamin K Antagonist Warfarin 5m g 5 mg as directed orally Active Completed/Discontinued Medications Medication Drug Class(es) Dates Sig (Normalized) Sig (Original) azithromycin 250 mg oral tablet (2 sources) Macrolide Antimicrobial Start: 04-04-2024 End: 05-10-2024 Azithromycin 250 mg tablet Discontinued 250 MG PO .COMPLEX 6 5 April 04, 2024 1:00am May 10, 2024 10:36am 2 tabs on first day followed by 1 tab on days 2-5 diphenhydrAMINE (12 sources) Histamine-1 Receptor Antagonist Start: 04-18-2013 Benadryl up to 50 mg Mar, 1 mL Ketorolac (12 sources) Nonsteroidal Anti-inflammatory Drug, Cyclooxygenase Inhibitor Start: 04-18-2013 Toradol per 15 mg Mar, 2 mL rizatriptan 5 mg oral tablet (6 sources) Serotonin-1b and Serotonin-1d Receptor Agonist Start: 01-03-2019 End: 05-06-2023 Rizatriptan 5 mg tablet Discontinued 5 MG PO As Directed as needed for Migraine Headache January 03, 2019 12:00am May 06, 2023 1:55pm topiramate 50 mg oral tablet (6 sources) Start: 01-03-2019 End: 05-06-2023 Topiramate 50 mg tablet Discontinued 75 MG PO Twice daily January 03, 2019 12:00am May 06, 2023 1:55pm Start: 01-03-2019 End: 05-06-2023 take 75 mg by mouth twice daily Topiramate Discontinued 75 MG PO Twice daily January 03, 2019 12:00am May 06, 2023 1:55pm verapamil hydrochloride 120 mg extended release oral tablet (6 sources) Calcium Channel [facility] Start: 01-03-2019 End: 05-06-2023 take 1 tablet by mouth once daily at bedtime Verapamil 120 mg tablet extended release Discontinued 120 MG PO Daily at bedtime January 03, 2019 12:00am May 06, 2023 1:55pm Problems Active Problems Problem Classification Problem Date Documented Da te Episodic/Chronic Acute bronchitis (1 source) Acute bronchitis due to other specified organisms; Translations: [Acute bronchitis] 04-04-2024 Episodic Acute cerebrovascular disease (20 sources) Cerebral infarction due to unspecified occlusion or stenosis of right carotid arteries; Translations: [Cerebral infarction due to stenosis of carotid artery] Chronic Aortic; peripheral; and visceral artery aneurysms (14 sources) Dissection of right carotid artery; Translations: [Dissection of carotid artery] Onset: 12-29-2021 Chronic Cardiac dysrhythmias (7 sources) Palpitations; Translations: [Palpitations] 11-03-2023 Episodic Disorders of lipid metabolism (20 sources) Pure hypercholesterolemia; Translations: [Familial hypercholesterolemia] Chronic Essential hypertension (20 sources) Essential hypertension; Translations: [Essential (primary) hypertension] Onset: 06-29-2022 Chronic Genitourinary symptoms and ill-defined conditions (7 sources) Frequency of micturition; Translations: [Frequency of urination] Episodic Headache; including migraine (20 sources) Migraine with aura; Translations: [Migraine with [...] Onset: 02-16-2022 Chronic Other aftercare (1 source) long term care pharmacist (current) use of aspirin; Translations: [[facility] CURRENT USE OF ASPIRIN] Onset: 07-01-2022 Episodic Other and ill-defined cerebrovascular disease (5 sources) Cerebral atherosclerosis; Translations: [Cerebral atherosclerosis] 07-31-2023 Chronic Other and ill-defined cerebrovascular disease (2 sources) Cerebral atherosclerosis; Translations: [Cerebral atherosclerosis] 11-03-2023 Chronic [...] in joint, lower leg] 05-08-2023 Episodic Other screening for suspected conditions (not mental disorders or infectious disease) (8 sources) Encounter for screening mammogram for malignant neoplasm of breast; Translations: [Patient encounter status] Onset: 02-11-2022 Episodic Other upper respiratory infections (1 source) [...] DEN STRUCT OTH SITE] Onset: 02-16-2022 Episodic Residual codes; unclassified (1 source) Family [...] Test Name Value Interpretation Reference Range Facility Influenza virus B Ag [Presen ce] in Upper respiratory specimen by Rapid immunoassayon 04-04-2024 FLUBV Ag IA.rapid Ql (Nph) Influenza virus B Ag [Presence] in Upper respiratory specimen by Rapid immunoassay [facility] No Panel Informationon 04-04 Influenza Type A (Rapid) Negative [facility] POC SARS CoV-2 Antigen Negative [facility] CBC AUTO DIFFon 06-29-2022 BASO # 0.1 103/ul Normal 0.0-0.1 [facility] Comment on above: Performed By: #### C BC ####[facility] [address] [place], [place] [address]Dr. Argentinaanalilia Pérez Basophils/100 WBC (Bld) 1.0 % Normal 0.2-2.0 [facility] Comment on above: Performed By: #### C BC ####[facility] [address] [place], [place] [address]Dr. Brady Pérez EO # 0.2 103/ul Normal 0.0-0.7 [facility] Comment on above: Performed By: #### C BC ####[facility] [address] [place], [place] [address]Dr. Brady Pérez Eosinophils/100 WBC (Bld) 3.5 % Normal 0.9-7.0 [facility] Comment on above: Performed By: #### C BC ####[facility] [address] [place], [place] [address]Dr. Brady Pérez Erythrocyte distribution width (RBC) [Ratio] 13.2 % Normal 11.0-15.0 [facility] Comment on above: Performed By: #### C BC ####[facility] [address] [place] [address]Dr. Brady Pérez Hematocrit (Bld) [Volume fraction] 41.5 % Normal 36.0-48.0 [facility] Comment on above: Performed By: #### C BC ####[facility] [address] [place] [address]Dr. Brady Pérez Hemoglobin (Bld) [Mass/Vol] 14.1 g/dL Normal 12.0-16.0 [facility] Comment on above: Performed By: #### C BC ####[facility] [address] [place] [address]Dr. Brady Pérez IG # 0.01 10e3/ul Normal 0.00-0.03 [facility] Comment on above: Performed By: #### C BC ####[facility] [address] [place], [place] [address]Dr. Brady Pérez IG % 0.2 % Normal 0.0-0.5 [facility] Comment on above: Performed By: #### C BC ####[facility] [address] [place], [place] [address]Dr. Brady Pérez LYMPH # 2.5 103/ul Normal 1.2-3.8 [facility] Comment on above: Performed By: #### C BC ####[facility] [address] [place] [address]Dr. Brady Pérez Lymphocytes/100 WBC (Bld) 48.3 % Normal 20.5-60.0 [facility] Comment on above: Performed By: #### C BC ####[facility] [address] [place], [place] [address]Dr. Brady Pérez MANUAL DIFF REQ NO Normal [facility] Comment on above: Performed By: #### C BC ####[facility] [address] [place], [place] [address]Dr. Brady Pérez MCH (RBC) [Entitic mass] 30.8 pg Normal 26.7-34.0 [facility] Comment on above: Performed By: #### C BC ####[facility] [address] [place] [id number]. Brady Pérez MCHC (RBC) [Mass/Vol] 34.0 g/dL Normal 29.9-35.2 [facility] Comment on above: Performed By: #### C BC ####[facility] [address] [place] [id number]. Brady Pérez MCV (RBC) [Entitic vol] 90.6 fL Normal 81.0-99.0 [facility] Comment on above: Performed By: #### C BC ####[facility] [address] [place] [id number]. Brady Beto MONO # 0.6 103/ul Normal 0.3-0.8 [facility] Comment on above: Performed By: #### C BC ####[facility] [address] [place], [place] [address]Dr. Brady Pérez Monocytes/100 WBC (Bld) 12.2 % Critically high 1.7-12.0 [facility] Comment on above: Performed By: #### C BC ####[facility] [address] [place], [place] [address]Dr. Brady Pérez NEUT # 1.8 103/ul Normal 1.4-6.5 [facility] Comment on above: Performed By: #### C BC ####[facility] [address] [place], [place] [address]Dr. Brady Pérez Neutrophils/100 WBC (Bld) 34.8 % Critically low 43.0-75.0 [facility] Comment on above: Performed By: #### C BC ####[facility] [address] [place], [place] [address]Dr. Brady Pérez Platelet mean volume (Bld) [Entitic vol] 9.4 fL Critically low 9.5-13.5 [facility] Comment on above: Performed By: #### C BC ####[facility] [address] [place], [place] [id number]. Brady Pérez PLT 296 103/ul Normal 150-450 [facility] Comment on above: Performed By: #### C BC ####[facility] [address] [place], [place] [address]GnLola Pérez RBC 4.58 106/ul Normal 4.20-5.40 [facility] Comment on above: Performed By: #### C BC ####[facility] [address] [place], [place] [address]Dr. Brady Pérez WBC 5.2 103/ul Normal 4.0-11.0 [facility] Comment on above: Performed By: #### C BC ####[facility] [address] [place] [id number]. Brady Pérez PROF CHEM 8 (BAS METB)on Anion gap [Moles/Vol] 14.0 mmol/L Normal [facility] Comment on above: Performed By: #### B MP #### [facility] [address] [address] [address] Brady Pérez Calcium [Mass/Vol] 9.2 mg/dL Normal 8.5-10.1 [facility] Comment on above: Performed By: #### B MP #### [facility] [address] [address] [address] Brady Pérez Chloride [Moles/Vol] 104 mmol/L Normal 98-107 [facility] Comment on above: Performed By: #### B MP #### [facility] [address] [address] [address] Brady Pérez CO2 [Moles/Vol] 28.1 mmol/L Normal 21.0-32.0 [facility] Comment on above: Performed By: #### B MP #### [facility] [address] [address] [address] Brady Pérez Creatinine [Mass/Vol] 1.02 mg/dL Normal 0.55-1.02 [facility] Comment on above: Performed By: #### B MP #### [facility] [address] [address] [address] Brady Pérez EGFR-AF CROATIAN >60 Normal >=60 [facility] Comment on above: Performed By: #### B MP #### [facility] [address] [address] [address] Brady Pérez EGFR-NON AF CROATIAN 55 mL/min/1.73m2 Critically low >=60 [facility] Comment on above: Performed By: #### B MP #### [facility] [address] [address] [address] Brady Pérez Glucose [Mass/Vol] 102 mg/dL Normal 74-106 [facility] Comment on above: Performed By: #### B MP #### [facility] [address] [address] [address] Brady Pérez Potassium [Moles/Vol] 4.1 mmol/L Normal 3.5-5.1 [facility] Comment on above: Performed By: #### B MP #### [facility] [address] [address] [address] Brady Pérez Sodium [Moles/Vol] 142 mmol/L Normal 136-145 [facility] Comment on above: Performed By: #### B MP #### [facility] [address] [address] [address] Brady Pérez Urea nitrogen [Mass/Vol] 13.0 mg/dL Normal 7.0-18.0 [facility] Comment on above: Performed By: #### B MP #### [facility] [address] [address] [address] Brady Pérez Urea nitrogen/Creatinin e [Mass ratio] 12.7 mg/mg Normal [facility] Comment on above: Performed By: #### B MP #### [facility] [address] [address] [address] Brady Pérez MG MAMM SCREEN 3D CHAD CADon 02-11-2022 MG MAMM SCREEN 3D CHAD CAD Patient: DESI KNOTT Exam Date: 02/11/2022 : 1960 Gender:F Ordering : DR ZACARIAS STALLINGS D.O. Admission #: [id number] Family : Order #: [id number] CLICK HERE TO VIEW EXAM RADIOLOGY REPORT [...] bladder cancer at age 74. LOCATION: [facility] BREAST COMPOSITION: Heterogeneously dense,which may obscure small [...] M.D. on 02/14/2022 at 14:51 Normal [facility] XR DEXA BONE DENSITYon 02-11 XR DEXA BONE DENSITY DEXA Bone Density Study CLINICAL: Evaluate bone mineral density. Postmenopausal COMPARISON: None FINDINGS: The bone density study was assessed by dual-energy x-ray absorptiometry with the [address] scanner. The test results are expressed in [...] + fragility fractures). Electronically authenticated by: MARGO NUNN Date: 2022-02-11 09:26 Normal [facility] CBC AUTO DIFFon 02-05-2022 BASO # 0.1 103/ul Normal 0.0-0.1 [facility] Comment on above: Performed By: #### C BC #### [facility] [address] [address] [address] Brady Pérez Basophils/100 WBC (Bld) 1.0 % Normal 0.2-2.0 [facility] Comment on above: Performed By: #### C BC #### [facility] [address] [place], [place] [address] Dr. Brady Pérez EO # 0.2 103/ul Normal 0.0-0.7 [facility] Comment on above: Performed By: #### C BC #### [facility] [address] [place] [address] Dr. Brady Pérez Eosinophils/100 WBC (Bld) 2.6 % Normal 0.9-7.0 [facility] Comment on above: Performed By: #### C BC #### [facility] [address] [place] [address] Dr. Brady Pérez Erythrocyte distribution width (RBC) [Ratio] 13.7 % Normal 11.0-15.0 [facility] Comment on above: Performed By: #### C BC #### [facility] [address] [place] [address] Dr. Brady Pérez Hematocrit (Bld) [Volume fraction] 43.6 % Normal 36.0-48.0 [facility] Comment on above: Performed By: #### C BC #### [facility] [address] [place] [address] Dr. Brady Pérez Hemoglobin (Bld) [Mass/Vol] 14.7 g/dL Normal 12.0-16.0 [facility] Comment on above: Performed By: #### C BC #### [facility] [address] [place] [address] Dr. Brady Pérez IG # 0.01 10e3/ul Normal 0.00-0.03 [facility] Comment on above: Performed By: #### C BC #### [facility] [address] [place] [address] Dr. Brady Pérez IG % 0.2 % Normal 0.0-0.5 [facility] Comment on above: Performed By: #### C BC #### [facility] [address] [place] [address] Dr. Brady Pérez LYMPH # 2.6 103/ul Normal 1.2-3.8 [facility] Comment on above: Performed By: #### C BC #### [facility] [address] [place] [address] Dr. Brady Pérez Lymphocytes/100 WBC (Bld) 43.6 % Normal 20.5-60.0 [facility] Comment on above: Performed By: #### C BC #### [facility] [address] [place] [address] Dr. Brady Pérez MANUAL DIFF REQ NO Normal [facility] Comment on above: Performed By: #### C BC #### [facility] [address] [place] [address] Dr. Brady Pérez MCH (RBC) [Entitic mass] 30.7 pg Normal 26.7-34.0 [facility] Comment on above: Performed By: #### C BC #### [facility] [address] [place] [address] Dr. Brady Pérez MCHC (RBC) [Mass/Vol] 33.7 g/dL Normal 29.9-35.2 [facility] Comment on above: Performed By: #### C BC #### [facility] [address] [place] [address] Dr. Brady Pérez MCV (RBC) [Entitic vol] 91.0 fL Normal 81.0-99.0 [facility] Comment on above: Performed By: #### C BC #### [facility] [address] [place] [address] Dr. Brady Pérez MONO # 0.7 103/ul Normal 0.3-0.8 [facility] Comment on above: Performed By: #### C BC #### [facility] [address] [place] [address] Dr. Brady Pérez Monocytes/100 WBC (Bld) 11.6 % Normal 1.7-12.0 [facility] Comment on above: Performed By: #### C BC #### [facility] [address] [place] [address] Dr. Brady Pérez NEUT # 2.5 103/ul Normal 1.4-6.5 [facility] Comment on above: Performed By: #### C BC #### [facility] [address] [place] [address] Dr. Brady Pérez Neutrophils/100 WBC (Bld) 41.0 % Critically low 43.0-75.0 [facility] Comment on above: Performed By: #### C BC #### [facility] [address] [address] [address] Brady Pérez Platelet mean volume (Bld) [Entitic vol] 9.3 fL Critically low 9.5-13.5 [facility] Comment on above: Performed By: #### C BC #### [facility] [address] [address] [address] Brady Pérez PLT 317 103/ul Normal 150-450 [facility] Comment on above: Performed By: #### C BC #### [facility] [address] [address] [address] Brady Pérez RBC 4.79 106/ul Normal 4.20-5.40 [facility] Comment on above: Performed By: #### C BC #### [facility] [address] [address] [address] Brady Pérez WBC 6.1 103/ul Normal 4.0-11.0 [facility] Comment on above: Performed By: #### C BC #### [facility] [address] [address] [address] Brady Pérez LIPID PROFILEon 02-05-2022 CHOL-HDL RATIO NORM SEE BELOW Normal [facility] Comment on above: Result Comment: 3.3 - 4.4 LOW RISK 4.4 - 7.1 AVERAGE RISK 7.1 - 11.0 MODERATE RISK >11.0 HIGH RISK Performed By: #### L IPID, MG, CMP, TSH ####[facility] [address] [id number] Pérez Cholesterol [Mass/Vol] 222 mg/dL Critically high <=200 [facility] Comment on above: Performed By: #### L IPID, MG, CMP, TSH ####[facility] [address] [id number]. Brady Pérez Cholesterol in HDL [Mass/Vol] 110 mg/dL Critically high 40-60 [facility] Comment on above: Performed By: #### L IPID, MG, CMP, TSH ####[facility] [address] [id number]. Brady Pérez Cholesterol in LDL [Mass/Vol] 94.4 mg/dL Normal [facility] Comment on above: Performed By: #### L IPID, MG, CMP, TSH ####[facility] [address] [address]Dr. Brady Pérez Cholesterol.total/ Cholesterol in HDL [Mass ratio] 2.0 {ratio} Normal [facility] Comment on above: Performed By: #### L IPID, MG, CMP, TSH ####[facility] [address] [address]Dr. Brady Pérez HDL NORMAL > or = 60 mg/dl - LO W CARDIOVASCULAR RISK <40 mg/dl - HIGH CARDIOVASCULAR RISK Normal [facility] Comment on above: Performed By: #### L IPID, MG, CMP, TSH ####[facility] [address] [address]Dr. Brady Pérez LDL CALC NORMAL SEE BELOW Normal [facility] Comment on above: Result Comment: <100 mg/dl OPTIMAL 100 - 129 mg/dl NEAR OR ABOVE OPTIMAL 130 - 159 mg/dl BORDERLINE HIGH 160 - 189 mg/dl HIGH >190 mg/dl VERY HIGH Performed By: #### L IPID, MG, CMP, TSH ####[facility] [address] [address]Dr. Brady Pérez Triglyceride [Mass/Vol] 88 mg/dL Normal <=150 [facility] Comment on above: Performed By: #### L IPID, MG, CMP, TSH ####[facility] [address] [address]Dr. Brady Pérez VLDL CALC 17.6 mg/dL Normal [facility] Comment on above: Performed By: #### L IPID, MG, CMP, TSH ####[facility] [address] [address]Dr. Brady Pérez MAGNESIUMon 02-05-2022 Magnesium [Mass/Vol] 2.3 mg/dL Normal 1.8-2.4 [facility] Comment on above: Performed By: #### L IPID, MG, CMP, TSH ####[facility] [address] [address]Dr. Brady Pérez PROF 14(COMP METB)on 022 Albumin [Mass/Vol] 3.9 g/dL Normal 3.4-5.0 [facility] Comment on above: Performed By: #### L IPID, MG, CMP, TSH ####[facility] [address] [address]Dr. Brady Pérez Albumin/Globulin [Mass ratio] 1.1 {ratio} Normal [facility] Comment on above: Performed By: #### L IPID, MG, CMP, TSH ####[facility] [address] [address]Dr. Brady Pérez ALP [Catalytic activity/Vol] 63 U/L Normal 46-116 [facility] Comment on above: Performed By: #### L IPID, MG, CMP, TSH ####[facility] [address] [address]Dr. Brady Pérez ALT [Catalytic activity/Vol] 31 U/L Normal 14-59 [facility] Comment on above: Performed By: #### L IPID, MG, CMP, TSH ####[facility] [address] [place], [place] [address]Dr. Brady Pérez Anion gap [Moles/Vol] 10.3 mmol/L Normal [facility] Comment on above: Performed By: #### L IPID, MG, CMP, TSH ####[facility] [address] [address]Dr. Brady Pérez AST [Catalytic activity/Vol] 14 U/L Critically low 15-37 [facility] Comment on above: Performed By: #### L IPID, MG, CMP, TSH ####[facility] [address] [address]Dr. Brady Pérez Bilirubin [Mass/Vol] 0.7 mg/dL Normal 0.2-1.0 [facility] Comment on above: Performed By: #### L IPID, MG, CMP, TSH ####[facility] [address] [address]Dr. Brady Pérez Calcium [Mass/Vol] 9.1 mg/dL Normal 8.5-10.1 [facility] Comment on above: Performed By: #### L IPID, MG, CMP, TSH ####[facility] [address] [address]Dr. Brady Pérez Chloride [Moles/Vol] 103 mmol/L Normal 98-107 [facility] Comment on above: Performed By: #### L IPID, MG, CMP, TSH ####[facility] [address] [address]Dr. Brady Pérez CO2 [Moles/Vol] 30.8 mmol/L Normal 21.0-32.0 [facility] Comment on above: Performed By: #### L IPID, MG, CMP, TSH ####[facility] [address] [address]Dr. Brady Pérez Creatinine [Mass/Vol] 0.76 mg/dL Normal 0.55-1.02 [facility] Comment on above: Performed By: #### L IPID, MG, CMP, TSH ####[facility] [address] [address]Dr. Brady Pérez EGFR-AF CROATIAN >60 Normal >=60 [facility] Comment on above: Performed By: #### L IPID, MG, CMP, TSH ####[facility] [address] [address]Dr. Brady Pérez EGFR-NON AF CROATIAN >60 Normal >=60 [facility] Comment on above: Performed By: #### L IPID, MG, CMP, TSH ####[facility] [address] [address]Dr. Brady Pérez Globulin (S) [Mass/Vol] 3.5 g/dL Normal [facility] Comment on above: Performed By: #### L IPID, MG, CMP, TSH ####[facility] [address] [address]Dr. Brady Pérez Glucose [Mass/Vol] 104 mg/dL Normal 74-106 [facility] Comment on above: Performed By: #### L IPID, MG, CMP, TSH ####[facility] [address] [address]Dr. Brady Pérez Potassium [Moles/Vol] 4.1 mmol/L Normal 3.5-5.1 [facility] Comment on above: Performed By: #### L IPID, MG, CMP, TSH ####[facility] [address] [address]Dr. Brady Pérez Protein [Mass/Vol] 7.4 g/dL Normal 6.4-8.2 [facility] Comment on above: Performed By: #### L IPID, MG, CMP, TSH ####[facility] [address] [address]Dr. Brady Pérez Sodium [Moles/Vol] 140 mmol/L Normal 136-145 [facility] Comment on above: Performed By: #### L IPID, MG, CMP, TSH ####[facility] [address] [place], [place] [address]Dr. Brady Pérez Urea nitrogen [Mass/Vol] 11.0 mg/dL Normal 7.0-18.0 [facility] Comment on above: Performed By: #### L IPID, MG, CMP, TSH ####[facility] [address] [place], [place] [address]Dr. Brady Pérez Urea nitrogen/Creatinin e [Mass ratio] 14.5 mg/mg Normal [facility] Comment on above: Performed By: #### L IPID, MG, CMP, TSH ####[facility] [address] [place], [place] [address]Dr. Brady Pérez TSHon 02-05-2022 TSH 1.652 uIU/mL Normal 0.358-3.740 [facility] Comment on above: Performed By: #### L IPID, MG, CMP, TSH ####[facility] [address] [place], [place] [address]Dr. Brady Pérez VITAMIN D 25 OHon 02-05-2022 VIT D 25-OH 35.5 ng/mL Normal [facility] Comment on above: Performed By: #### V ITAD #### [facility] [address] [place] [address] Dr. Brady Pérez VIT D RANGES SEE BELOW Normal [facility] Comment on above: Result Comment: <20 ng/mL Vit D deficient 20 - <30 ng/mL Vit D insufficient 30 - 100 ng/mL Vit D sufficient >100 ng/mL Potential Toxicity Performed By: #### V ITAD #### [facility] [address] [place] [address] Dr. Brady Pérez CBC AUTO DIFFon 12-27-2021 BASO # 0.1 103/ul Normal 0.0-0.1 [facility] Comment on above: Performed By: #### C BC ####[facility] [address] [address]DrLola Pérez Basophils/100 WBC (Bld) 1.0 % Normal 0.2-2.0 [facility] Comment on above: Performed By: #### C BC ####[facility] [address] [place], [place] [address]DrLola Pérez EO # 0.1 103/ul Normal 0.0-0.7 [facility] Comment on above: Performed By: #### C BC ####[facility] [address] [place], [place] [address]Dr. Brady Pérez Eosinophils/100 WBC (Bld) 1.6 % Normal 0.9-7.0 [facility] Comment on above: Performed By: #### C BC ####[facility] [address] [place], [place] [address]DrLola Pérez Erythrocyte distribution width (RBC) [Ratio] 13.5 % Normal 11.0-15.0 [facility] Comment on above: Performed By: #### C BC ####[facility] [address] [place], [place] [address]DrLola Pérez Hematocrit (Bld) [Volume fraction] 43.9 % Normal 36.0-48.0 [facility] Comment on above: Performed By: #### C BC ####[facility] [address] [place], [place] [address]DrLola Pérez Hemoglobin (Bld) [Mass/Vol] 14.4 g/dL Normal 12.0-16.0 [facility] Comment on above: Performed By: #### C BC ####[facility] [address] [address]DrLola Pérez IG # 0.01 10e3/ul Normal 0.00-0.03 [facility] Comment on above: Performed By: #### C BC ####[facility] [address] [place], [place] [address]DrLola Pérez IG % 0.1 % Normal 0.0-0.5 [facility] Comment on above: Performed By: #### C BC ####[facility] [address] [place], [place] [address]DrLola Pérez LYMPH # 2.4 103/ul Normal 1.2-3.8 [facility] Comment on above: Performed By: #### C BC ####[facility] [address] [place], [place] [address]DrLola Pérez Lymphocytes/100 WBC (Bld) 34.3 % Normal 20.5-60.0 [facility] Comment on above: Performed By: #### C BC ####[facility] [address] [place], [place] [address]DrLola Pérez MANUAL DIFF REQ NO Normal [facility] Comment on above: Performed By: #### C BC ####[facility] [address] [place], [place] [address]DrLola Pérez MCH (RBC) [Entitic mass] 30.6 pg Normal 26.7-34.0 [facility] Comment on above: Performed By: #### C BC ####[facility] [address] [place], [place] [address]DrLola Pérez MCHC (RBC) [Mass/Vol] 32.8 g/dL Normal 29.9-35.2 [facility] Comment on above: Performed By: #### C BC ####[facility] Rx[address] [place], [place] [address]DrLola Pérez MCV (RBC) [Entitic vol] 93.2 fL Normal 81.0-99.0 [facility] Comment on above: Performed By: #### C BC ####[facility] [address] [place], [place] [address]DrLola Brady Pérez MONO # 0.6 103/ul Normal 0.3-0.8 [facility] Comment on above: Performed By: #### C BC ####[facility] [address] [place], [place] [address]DrLola Brady Beto Monocytes/100 WBC (Bld) 9.1 % Normal 1.7-12.0 [facility] Comment on above: Performed By: #### C BC ####[facility] [address] [place], [place] [address]DrLola Brady Pérez NEUT # 3.8 103/ul Normal 1.4-6.5 [facility] Comment on above: Performed By: #### C BC ####[facility] [address] [place], [place] [address]Dr. Brady Beto Neutrophils/100 WBC (Bld) 53.9 % Normal 43.0-75.0 [facility] Comment on above: Performed By: #### C BC ####[facility] [address] [place], [place] [address]DrLola Brady Beto Platelet mean volume (Bld) [Entitic vol] 9.7 fL Normal 9.5-13.5 [facility] Comment on above: Performed By: #### C BC ####[facility] [address] [place], [place] [address]Dr. Brady Beto PLT 360 103/ul Normal 150-450 [facility] Comment on above: Performed By: #### C BC ####[facility] [address] [place], [place] [address]DrLola Pérez RBC 4.71 106/ul Normal 4.20-5.40 [facility] Comment on above: Performed By: #### C BC ####[facility] [address] [place], [place] [address]DrLola Pérez WBC 7.0 103/ul Normal 4.0-11.0 [facility] Comment on above: Performed By: #### C ####[facility] [address] [place], [place] [address]VwL[address] Pérez CT STROKE HEAD WOon 12-28-[address] STROKE HEAD WO EXAM: CT STROKE [...] by: REJI GOULD Date: 2021-12-27 05:14 Normal [facility] CTA HEAD WO W CONon 12-28-19 [...] The left ECA is patent. 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 The right vertebral artery is [...] REJI GOULD Date: 2021-12-27 06:39 Normal [facility] Covid-19 PCR (CVDTB)on 12-18 SARS-CoV-2 (COVID-19) RNA BRETT+probe Ql (Unsp spec) Not detected Normal NOT DETECTED [facility] Comment on above: Result Comment: When diagnostic [...] for this test is supported by the [place] of Health and Human Service's declaration that [...] longer be used). Performed By: #### C VDTB #### [facility] [address] [place] [address] Dr. Brady Pérez PROF 14(COMP METB)on 022 Albumin [Mass/Vol] 4.0 g/dL Normal 3.4-5.0 [facility] Comment on above: Performed By: #### C MP #### [facility] [address] [place] [address] Dr. Brady Pérez Albumin/Globulin [Mass ratio] 1.1 {ratio} Normal [facility] Comment on above: Performed By: #### C MP #### [facility] [address] [place] [address] Dr. Brady Pérez ALP [Catalytic activity/Vol] 64 U/L Normal 46-116 [facility] Comment on above: Performed By: #### C MP #### [facility] [address] [place] [address] Dr. Brady Pérez ALT [Catalytic activity/Vol] 29 U/L Normal 14-59 [facility] Comment on above: Performed By: #### C MP #### [facility] [address] [place] [address] Dr. Brady Pérez Anion gap [Moles/Vol] 11.9 mmol/L Normal [facility] Comment on above: Performed By: #### C MP #### [facility] [address] [address] [address] Brady Pérez AST [Catalytic activity/Vol] 16 U/L Normal 15-37 [facility] Comment on above: Performed By: #### C MP #### [facility] [address] [address] [address] Brady Pérez Bilirubin [Mass/Vol] 1.1 mg/dL Critically high 0.2-1.0 [facility] Comment on above: Performed By: #### C MP #### [facility] [address] [address] [address] Brady Pérez Calcium [Mass/Vol] 8.8 mg/dL Normal 8.5-10.1 [facility] Comment on above: Performed By: #### C MP #### [facility] [address] [address] [address] Brady Pérez Chloride [Moles/Vol] 104 mmol/L Normal 98-107 [facility] Comment on above: Performed By: #### C MP #### [facility] [address] [address] [address] Brady Pérez CO2 [Moles/Vol] 26.7 mmol/L Normal 21.0-32.0 [facility] Comment on above: Performed By: #### C MP #### [facility] [address] [address] [address] Brady Pérez Creatinine [Mass/Vol] 1.00 mg/dL Normal 0.55-1.02 [facility] Comment on above: Performed By: #### C MP #### [facility] [address] [address] [address] Brady Pérez EGFR-AF CROATIAN >60 Normal >=60 [facility] Comment on above: Performed By: #### C MP #### [facility] [address] [address] [address] Brady Pérez EGFR-NON AF CROATIAN 57 mL/min/1.73m2 Critically low >=60 [facility] Comment on above: Performed By: #### C MP #### [facility] [address] [address] [address] Brady Pérez Globulin (S) [Mass/Vol] 3.5 g/dL Normal [facility] Comment on above: Performed By: #### C MP #### [facility] [address] [address] [address] Brady Pérez Glucose [Mass/Vol] 103 mg/dL Normal 74-106 [facility] Comment on above: Performed By: #### C MP #### [facility] [address] [address] [address] Brady Pérez Potassium [Moles/Vol] 4.6 mmol/L Normal 3.5-5.1 [facility] Comment on above: Performed By: #### C MP #### [facility] [address] [place] [address] Dr. Brady Pérez Protein [Mass/Vol] 7.5 g/dL Normal 6.4-8.2 [facility] Comment on above: Performed By: #### C MP #### [facility] [address] [address] [address] Brady Pérez Sodium [Moles/Vol] 138 mmol/L Normal 136-145 [facility] Comment on above: Performed By: #### C MP #### [facility] [address] [address] [address] Brady Pérez Urea nitrogen [Mass/Vol] 17.0 mg/dL Normal 7.0-18.0 [facility] Comment on above: Performed By: #### C MP #### [facility] [address] [address] [address] Brady Pérez Urea nitrogen/Creatinin e [Mass ratio] 17.0 mg/mg Normal [facility] Comment on above: Performed By: #### C MP #### [facility] [address] [address] [address] Brady Pérez PROTIMEon 12-27-2021 INR Coag (PPP) [Relative time] 1.03 {INR} Normal [facility] Comment on above: Performed By: #### P TT, PT #### [facility] [address] [address] [address] Brady Pérez INR GUIDELINES SEE BELOW Normal [facility] Comment on above: Result Comment: GARRICK RED INR: 2.0 - 3.0 CONDITIONS NOT LISTED BELOW 2.5 - 3.5 FOR PROSTHETIC HEART VALVE REPLACEMENT 2.5 - 3.5 RECURRENT THROMBOSIS Performed By: #### P TT, PT #### [facility] [address] [address] [address] Brady Pérez PT Coag (PPP) [Time] 11.1 s Normal 9.0-11.6 [facility] Comment on above: Performed By: #### P TT, PT #### [facility] [address] [place] [address] Dr. Brady Pérez PTTon 12-27-2021 aPTT Coag (Bld) [Time] 26.3 s Normal 22.3-36.2 [facility] Comment on above: Performed By: #### P TT, PT #### [facility] [address] [address] [address] Brady Pérez US ST HEAD_NECKon 09-10-2021 [...] by: NICK KASPER Date: 2021-09-10 15:45 Normal [facility] XR CHEST 2 Von 09-10-2021 XR CHEST [...] VINH UMANZOR Date: 2021-09-10 12:54 Normal [facility] Covid-19 PCR (CVDFRANCISCAN CHILDREN'S)on 08-18 SARS-CoV-2 (COVID-19) RNA BRETT+probe Ql (Unsp spec) Not detected Normal NOT DETECTED [facility] Comment on above: Result Comment: This test is not yet approved or cleared by the [place] FDA. When there are no FDA-approved or cleared tests available, and other criteria are met, FDA can make tests available under an emergency access mechanism called an Emergency Use Authorization (EUA). The EUA for this test is supported by the [employer] [place] of Health and Human Service's (HHS's) declaration [...] consistent with SARS-CoV-2. Performed By: #### C VDFRANCISCAN CHILDREN'S ####[facility] [address] [place], [place] [address]UtLola Pérez Operative Reporton Operative Report MR#: [id number] [facility] Pt. Name: Desi Knott Room #: PMC [...] nerve injuries, spinal cord injury, and cardiovascularand COMMERCIAL FIELD INSPECTOR side effects with possibility of vascular entry [...] 02/02/2017/02:31 P/Jaydon Del Rio Trans: 02/02/2017 02:31 P/[id number] c: Hai Aburto M.D. [address] [place] [address] [address] [facility] [address] [facility] Operative Reporton 7 Operative Report MR#: [id number] [facility] Pt. Name: Desi Knott Room #: PMC [...] nerve injuries, spinal cord injury, and cardiovascularand COMMERCIAL FIELD INSPECTOR side effects with possibility of vascular entry [...] for the entire procedure. Date Dict: 01/19/2017/03:14 P/Jaydon Del Rio Trans: 01/19/2017 03:14 P/[id number] Normal [facility] Vital Signs Date Time Vital Sign Value Performing Clinician Facility 11-15-2024 09:26-0400 Body height 162.56 cm Zacarias Ball DO Work Phone: [facility] 11-15-2024 09:26-0400 Body mass index (BMI) [Ratio] 23.8 kg/m2 Zacarias Ball DO Work Phone: [facility] 11-15-2024 09:26-0400 Body weight 63.1 kg Zacarias Ball DO Work Phone: [facility] 11-15-2024 09:26-0400 Diastolic blood pressure 85 mm[Hg] Zacarias Ball DO Work Phone: [facility] 11-15-2024 09:26-0400 Heart rate 60 /min Zacarias Ball DO Work Phone: [facility] 11-15-2024 09:26-0400 Respiratory rate 12 /min Zacarias Ball DO Work Phone: [facility] 11-15-2024 09:26-0400 Systolic blood pressure 136 mm[Hg] Zacarias Ball DO Work Phone: [facility] 05-10-2024 09:36-0500 Body height 162.56 cm [facility] 05-10-2024 09:36-0500 Body mass index (BMI) [Ratio] 24.2 kg/m2 [facility] 05-10-2024 09:36-0500 Body weight 64.01 kg [facility] 05-10-2024 09:36-0500 Diastolic blood pressure 80 mm[Hg] [facility] 05-10-2024 09:36-0500 Heart rate 70 /min [facility] 05-10-2024 09:36-0500 Respiratory rate 12 /min [facility] 05-10-2024 09:36-0500 Systolic blood pressure 139 mm[Hg] [facility] 04-04-2024 11:43-0500 Body height 162.56 cm [facility] 04-04-2024 11:43-0500 Body mass index (BMI) [Ratio] 23.8 kg/m2 [facility] 04-04-2024 11:43-0500 Body weight 63.16 kg [facility] 04-04-2024 11:43-0500 Diastolic blood pressure 90 mm[Hg] [facility] 04-04-2024 11:43-0500 Heart rate 69 /min [facility] 04-04-2024 11:43-0500 Respiratory rate 12 /min [facility] 04-04-2024 11:43-0500 Systolic blood pressure 134 mm[Hg] [facility] 11-03-2023 10:05-0400 Body height 162.56 cm [facility] 11-03-2023 10:05-0400 Body mass index (BMI) [Ratio] 23.4 kg/m2 [facility] 11-03-2023 10:05-0400 Body weight 61.91 kg [facility] 11-03-2023 10:05-0400 Diastolic blood pressure 82 mm[Hg] [facility] 11-03-2023 10:05-0400 Heart rate 57 /min [facility] 11-03-2023 10:05-0400 Respiratory rate 12 /min [facility] 11-03-2023 10:05-0400 Systolic blood pressure 135 mm[Hg] [facility] 07-31-2023 10:34-0400 Body height 162.56 cm [facility] 07-31-2023 10:34-0400 Body mass index (BMI) [Ratio] 23.5 kg/m2 [facility] 07-31-2023 10:34-0400 Body weight 62.19 kg [facility] 07-31-2023 10:34-0400 Diastolic blood pressure 90 mm[Hg] [facility] 07-31-2023 10:34-0400 Heart rate 52 /min [facility] 07-31-2023 10:34-0400 Respiratory rate 12 /min [facility] 07-31-2023 10:34-0400 Systolic blood pressure 156 mm[Hg] [facility] 05-08-2023 16:41-0500 Diastolic blood pressure 88 mm[Hg] [facility] 05-08-2023 16:41-0500 Systolic blood pressure 138 mm[Hg] [facility] 05-08-2023 15:38-0500 Body height 162.56 cm [facility] 05-08-2023 15:38-0500 Body mass index (BMI) [Ratio] 23.8 kg/m2 [facility] 05-08-2023 15:38-0500 Body weight 62.82 kg [facility] 05-08-2023 15:38-0500 Diastolic blood pressure 87 mm[Hg] [facility] 05-08-2023 15:38-0500 Heart rate 54 /min [facility] 05-08-2023 15:38-0500 Respiratory rate 12 /min [facility] 05-08-2023 15:38-0500 Systolic blood pressure 153 mm[Hg] [facility] 11-01-2022 15:30-0400 Body height 162.56 cm Zacarias Ball Other [facility] [employer] Other 11-01-2022 15:30-0400 Body mass index (BMI) [Ratio] 23 kg/m2 Zacarias Ball Other [facility] [employer] Other 11-01-2022 15:30-0400 Body weight 60.78 kg Zacarias Ball Other [facility] [employer] Other 11-01-2022 15:30-0400 Diastolic blood pressure 83 mm[Hg] Zacarias Ball Other [facility] [employer] Other 11-01-2022 15:30-0400 Respiratory rate 12 /min Zacarias Ball Other [facility] [employer] Other 11-01-2022 15:30-0400 Systolic blood pressure 137 mm[Hg] Zacarias Ball Other [facility] [employer] Other 08-01-2022 15:00-0400 Body height 162.56 cm Zacarias Ball Other [facility] Other 08-01-2022 15:00-0400 Body mass index (BMI) [Ratio] 22.93 kg/m2 Zacarias Ball Other [facility] Other 08-01-2022 15:00-0400 Body weight 60.6 kg Zacarias Ball Other [facility] Other 08-01-2022 15:00-0400 Diastolic blood pressure 81 mm[Hg] Zacarias Ball Other [facility] Other 08-01-2022 15:00-0400 Respiratory rate 12 /min Zacarias Ball Other [facility] Other 08-01-2022 15:00-0400 Systolic blood pressure 137 mm[Hg] Zacarias Ball Other [facility] Other 06-13-2022 15:00-0400 Body height 162.56 cm Zacarias Ball Other [facility] Other 06-13-2022 15:00-0400 Body mass index (BMI) [Ratio] 22.76 kg/m2 Zacarias Ball Other [facility] Other 06-13-2022 15:00-0400 Body weight 60.15 kg Zacarias Ball Other [facility] Other 06-13-2022 15:00-0400 Diastolic blood pressure 92 mm[Hg] Zacarias Ball Other [facility] Other 06-13-2022 15:00-0400 Respiratory rate 12 /min Zacarias Ball Other [facility] Other 06-13-2022 15:00-0400 Systolic blood pressure 154 mm[Hg] Zacarias Stallings Other [facility] Other 05-02-2022 15:00-0500 Body height 162.56 cm Zacarias Stallings Other [facility] Other 05-02-2022 15:00-0500 Body mass index (BMI) [Ratio] 22.55 kg/m2 Zacarias Stallings Other [facility] Other 05-02-2022 15:00-0500 Body weight 59.6 kg Zacarias Stallings Other [facility] Other 05-02-2022 15:00-0500 Diastolic blood pressure 90 mm[Hg] Zacarias Stallings Other [facility] Other 05-02-2022 15:00-0500 Respiratory rate 12 /min Zacarias Stallings Other [facility] Other 05-02-2022 15:00-0500 Systolic blood pressure 132 mm[Hg] Zacarias Stallings Other [facility] Other Encounters Encounter Date Encounter Type Care Provider Facility Start: 11-15-2024 End: 11-15-2024 ambulatory Zacarias Stallings DO Work Phone: [facility] Work Phone: Start: 11-15-2024 End: 11-15-2024 Patient encounter procedure Zacarias Stallings DO -[facility] Work Phone: Start: 11-15-2024 End: 11-15-2024 Patient encounter status Zacarias Chandrakant [facility] Start: 05-10-2024 End: 05-10-2024 ambulatory [facility] Work Phone: Start: 05-10-2024 End: 05-10-2024 Patient encounter procedure [facility] Work Phone: Start: 04-04-2024 End: 04-04-2024 ambulatory [facility] Work Phone: Start: 04-04-2024 End: 04-04-2024 Patient encounter procedure [facility] Work Phone: Start: 01-17-2024 Non-patient / Non-visit [facility] Work Phone: Start: 11-03-2023 End: 11-03-2023 ambulatory [facility] Work Phone: Start: 11-03-2023 End: 11-03-2023 Encounter for general adult medical examination without abnormal findings [facility] Start: 11-03-2023 End: 11-03-2023 Patient encounter procedure [facility] Work Phone: Start: 07-31-2023 End: 07-31-2023 ambulatory [facility] Work Phone: Start: 07-31-2023 End: 07-31-2023 Patient encounter procedure [facility] Work Phone: Start: 05-31-2023 Non-patient / Non-visit [facility] Work Phone: Start: 05-08-2023 End: 05-08-2023 ambulatory [facility] Work Phone: Start: 05-08-2023 End: 05-08-2023 Patient encounter procedure [facility] Work Phone: Start: 01-02-2023 End: 01-02-2023 ambulatory Zacarias Stallings Other [facility] [employer] Other Start: 01-02-2023 Telephone encounter Zacarias Stallings [facility] Start: 12-22-2022 End: 12-22-2022 ambulatory Zacarias Stallings Other [facility] Other Start: 12-22-2022 Telephone encounter Zacarias Ball [facility] Start: 11-08-2022 End: 11-08-2022 ambulatory Zacarias Ball Other [facility] Other Start: 11-08-2022 Telephone encounter Zacarias Ball [facility] Start: 11-01-2022 End: 11-01-2022 ambulatory Zacarias Ball Other [facility] Other Start: 11-01-2022 Encounter for genera l adult medical examination without abnormal findings Zacarias Ball [facility] Start: 11-01-2022 Periodic preventive med est patient 40-64yrs Zacarias Ball [facility] Start: 08-01-2022 End: 08-01-2022 ambulatory Zacarias Ball Other [facility] Other Start: 08-01-2022 Office outpatient vi sit 15 minutes Zacarias Ball [facility] Start: 06-29-2022 Telephone encounter Zacarias Ball [facility] Start: 06-29-2022 End: 06-29-[address] MARV ACEVEDO . [place] [facility] Other Start: 06-13-2022 End: 06-13-2022 ambulatory Zacarias Ball Other [facility] Other Start: 06-13-2022 Office outpatient vi sit 25 minutes Zacarias Ball [facility] Start: 05-17-2022 End: 05-17-2022 ambulatory Zacarias Ball Other [facility] Other Start: 05-17-2022 Telephone encounter Zacarias Ball [facility] Start: 05-02-2022 End: 05-02-2022 ambulatory Zacarias Ball Other [facility] Other Start: 05-02-2022 Office outpatient vi sit 25 minutes Zacarias Ball [facility] Start: 03-24-2022 End: 03-24-2022 ambulatory Zacarias Stallings Other [facility] [employer] Other Start: 03-24-2022 Telephone encounter [facility]acarias [facility] Start: 03-22-2022 End: 03-22-2022 ambulatory Zacarias Stallings Other [facility] Other Start: 03-22-2022 Telephone encounter [facility]acarias L[facility]PEZ [facility] Start: 02-11-2022 End: 02-12-[address] ZACARIAS STALLINGS Facility:[facility] Start: 02-09-2022 Encounter for genera l adult medical examination without abnormal findings DR ZACARIAS STALLINGS [facility] Start: 02-05-2022 End: 02-06-[address] [...] Start: 02-02-2017 End: 02-03-2017 Ambulatory HAI ABURTO Facility:[facility] Start: 01-19-2017 End: 01-20-2017 Ambulatory HAI ABURTO Facility:[facility] Procedures Date Procedure Procedure Detail Performing Clinician Screening for malign ant neoplasm of cervix Zacarias Stallings Other Screening for malign ant neoplasm of colon Zacarias Stallings Other Plan of Treatment Date Care Activity Detail Author Comprehensive metabo lic 2000 panel - Serum or Plasma [facility] enter MG Breast - bilateral Screening [facility] Immunizations Immunization Date Immunization Notes Care Provider Fa cility 01-26-2021 COVID-19 Vaccine Moderna - Documentation Purposes Only Zacarias Stallings Other [facility] 12-29-2020 COVID-19 Vaccine Moderna - Documentation Purposes Only Zacarias Stallings Other [facility] 02-20-2015 influenza virus vaccine, split virus (incl. purified surface antigen) Zacarias Stallings Other [facility] Other 02-20-2015 influenza virus vaccine, unspecified formulation [facility] Payers Date Payer Category Payer Unknown [id number] [id number] [id number] 1960 Unknown [id number] 2.16.84 [id number] 1960 Unknown [id number] 2.16.84 [id number] 1960 Unknown [id number] 2.16.84 [id number] 1960 Unknown [id number] 2.16.84 [id number] 1960 Unknown [id number] 2.16.84 [id number] 1960 Unknown [id number] 2.16.84 [id number] 1958 Self-pay 1958 Unknown [id number] 1958 Unknown [id number] 2.16.8 [id number] Social History Date Type Detail Facility Sex Assigned At [facility] [employer] Other Start: 05-08-2023 End: 05-08-2023 Tobacco smoking status NHIS Never smoked tobacco (finding) [facility] Start: 1960 Sex Assigned At Female [facility] Start: 04-04-2024 End: 05-10-2024 Sex Female (finding) [facility] Clinical Notes 03-22-2022 to 04-04-2024 Note Date & Type Note Facility 04-04-2024 Evaluation note Diagnosis Onset Date Resolution Nicotine dependence acute Janua ry 2024 11:10am Primary hypertension acute John saeid2024 11:10am Acute bronchitis due to other specified organisms noneactive Januar y 2024 11:10am Cerebral atherosclerosis acute May 10, 2024 9:29am Hyperlipidemia acute April [id number] 9:29am Nicotine dependence acute 2024 9:29am Palpitation acute April 9:29am Primary hypertension acute 2024 9:29am [facility] Work Phone: [phone] 975-493410-05-2023 Evaluation note* Encounter Date Diagnosis Assessment Notes Treatment Notes Treatment Clinical Notes Dec, Hyperlipidemia type II (ICD-10 - E78.01) [facility] Other 08-22-2023 Evaluation note* Encounter Date Diagnosis Assessment Notes Treatment Notes Treatment Clinical Notes Oct, Elevated cholesterol (ICD-10 - E78.00) [facility] Other 08-15-2023 Evaluation note* Encounter Date Diagnosis [...] to respiratory infections, vascular disease and cancers. [facility] Other 05-15-2023 Evaluation note* Encounter Date Diagnosis [...] the risk for cerebrovascular and cardiovascular disease. [facility] Other 04-12-2023 Evaluation note* Encounter Date Diagnosis Assessment Notes Treatment Notes Treatment Clinical Notes Jun, Essential hypertension (ICD-10 - I10) [facility] Other 03-27-2023 Evaluation note* Encounter Date Diagnosis [...] restrict salt use and avoid NSAIDs, Sudafed [facility] Other 02-28-2023 Evaluation note* Encounter Date Diagnosis Assessment Notes Treatment Notes Treatment Clinical Notes Apr, Essential hypertension (ICD-10 - I10) [facility] Other 02-13-2023 Evaluation note* Encounter Date Diagnosis [...] improve BP control - stop tobacco use [facility] Other 01-05-2023 Evaluation note* Encounter Date Diagnosis Assessment Notes Treatment Notes Treatment Clinical Notes Mar, Essential hypertension (ICD-10 - I10) [facility] Other 01-03-2023 Evaluation note* Encounter Date Diagnosis Assessment Notes Treatment Notes Treatment Clinical Notes Mar, Essential hypertension (ICD-10 - I10) Mar, Cerebral infarction due to stenosis of right carotid artery (ICD-10 - I63.231) [facility] [employer] Other [facility] [employer] Other Evaluation noteNo assessment information available [facility] Work Phone: Evaluation note* Diagnosis Onset Date Resolution Status Cerebral infarction due to s tenosis of right carotid artery acute Hyperlipidemia acute Nicotine dependence acute Primary hypertension acute Knee pain, bilateral noneact piedad Sore throat noneactive [facility] Work Phone: Evaluation note* Diagnosis Onset Date Resolution Status Cerebral atherosclerosis acu te Hyperlipidemia acute Nicotine dependence acute Palpitation acute Primary hypertension acute Wellness examination noneact piedad [facility] Work Phone: Evaluation note* Diagnosis Onset Date Resolution Status Admit Date Cerebral atherosclerosis acute November 15, 2024 9:16am Cervical spondylosis acute Augu st 2024 9:16am Hyperlipidemia acute October 9:16am Nicotine dependence acute Augus t 2024 9:16am Palpitation acute November 15, 2024 9:16am Primary hypertension acute Augu st 2024 9:16am Screening mammogram for [facility] cancer acute November 15 9:16am Wellness examination noneactive 2024 9:16am [facility] Work Phone: History general Narrative - Reported* [...] 01/08/2019 Hospitalization History see above surgical histo [facility] Other History general Narrative - Reported* Type [...] 02/2015 Hospitalization History see above surgical histo [facility] Other Reason for referral (narrative)No reason for referral [facility] Work [facility]: Summary Purpose Family History Relationship Condition Age [...] Nicotine dependence Palpitation Primary hypertension Wellness examination Chief Complaint Admit Date cough, sore throat, ear pain, fever, cov neg April 04, 2024 11:10am Chief Complaint Admit Date cough, sore throat, ear pain, fever, cov neg April 04, 2024 11:10am 6 month f/u May 10, 2024 9:29am Reason for Visit Admit Date Nicotine dependence April 04, 2024 1 1:10am Primary hypertension April 04, 2024 11:10am Acute bronchitis due to other specified organisms April 04, 2024 11:10am Cerebral atherosclerosis May 10, 2024 9:29am Hyperlipidemia May 10, 2024 9:29am Nicotine dependence May 10, 2024 9:29am Palpitation May 10, 2024 9:29am Primary hypertension May 10, 2024 9:29am Chief Complaint Admit Date Wellness November 15, 2024 9: 16am Reason for Visit Admit Date Cerebral atherosclerosis November 15 9:16am Cervical spondylosis November 15, 2024 9 :16am Hyperlipidemia November 15, 2024 9: 16am Nicotine dependence November 15, 2024 9: 16am Palpitation November 15, 2024 9: 16am Primary hypertension November 15, 2024 9 :16am Screening mammogram for breast cancer [facility] 2024 9:16am Wellness examination November 15, 2024 9 :16am Additional Source Comments INFORMATION SOURCE (unrecogn ized section and content) DATE CREATED AUTHOR 09/12/2017 [facility] DATE CREATED AUTHOR AUTHOR'S ORGANIZ ATION 07/02/2022 [facility] REASON FOR VISIT (unrecogniz ed [...] Care Provide r, Attending Provider Active Start: April 04, 2024 End: April 04, 2024 Team Status: Inactive Member Role Status Dates Zacarias Stallings DO Primary Care Provide r, Attending Provider Active Start: May 10, 2024 End: May 10, 2024 Team Status: Active Member Role Status Dates Zacarias Stallings , DO Primary Care Provide r, Attending Provider Active Start: January 17, 2024 Team Status: Inactive Member Role Status Dates Zacarias Stallings , DO Primary Care Provide r, Attending Provider Active Start: May 08, 2023 End: May 08, 2023 Team Status: Active Member Role Status Dates Zacarias Stallings , DO Primary Care Provider Active Start: May 31, [...] November 03, 2023 End: November 03, 2023 Team Status: Inactive Member Role Status Dates Zacarias Stallings , DO Primary Care Provider Active Start: November 15, 2024 End: November 15, 2024 Zacarias Stallings , DO Attending Provider Active Sta rt: November 15, 2024 End: November 15, 2024 Goals (unrecognized section and content) Goals may [...] BE BASED ON THE PRIMARY CLINICAL RECORDS. [employer] provides no warranty or guarantee of the accuracy or completeness of information in this document.
--- NOTE | 2024-12-06 08:20 | CT_ITS ---
The [address] [address] Patient Name: DESI FAIR MRN: [id number] date: 1960 Sex: F Assigned Patient Location: LAB Current Patient Location: LAB Accession/Order Number: [id number] Exam Date: 12/06/2024 08:30 Report Date: 12/06/2024 09:10 At the request of: CAM GORDON DO Procedure: CT lung screening low-dose LOW-DOSE SCREENING CHEST CT WITHOUT CONTRAST COMPARISON: The 2018 CLINICAL DATA: Former smoker Spiral axial unenhanced low-dose images were obtained through the chest. Images were reviewed using both narrow and wide window settings. This CT exam was performed using one or more following dose reduction techniques: Automated exposure control, adjustment of the mA and/or kV according to patient size, or use of iterative reconstruction technique. The heart is top normal in size. There is no pericardial effusion. The ascending aorta is slightly ectatic. There is minimal plaque at the aortic arch. No enlarged mediastinal lymph nodes are visualized. Mild levoscoliotic curvature is noted at the spine. There is minimal apical scarring. No consolidation, pleural effusion or pneumothorax is seen. There are tiny scattered solid and groundglass nodular densities bilaterally measuring up to 3 mm at the right upper lobe (axial image 25). These were also present previously. No new nodularity is seen. Limited imaging through the upper abdomen shows a similar small left adrenal nodule. CT/CT lung screening low-dose IMPRESSION: SIMILAR TINY PULMONARY NODULES. Lung RADS category 2 - benign Twelve-month low-dose CT follow-up suggested Impression dictated by: Daria Hernandez M.D. 12/06/2024 9:10 AM Dictation Location: [place] [address] Electronically authenticated by: [id number] Y Date: 12/06/2024 09:10
[2024-12-06 08:23] LABS: Hematocrit 38.5 % (36.0-48.0); Hemoglobin 13.3 g/dL (12.0-16.0); Immature Granulocytes Abs Auto 0.01 10^3/uL (0.00-0.03); Immature Granulocytes Pct Auto 0.3 % (0.0-0.5); Lymphocytes Absolute Auto 1.8 10^3/uL (1.2-3.8); Mean Corpuscular HGB Conc 34.5 g/dL (29.9-35.2); Mean Corpuscular Hemoglobin 31.6 pg (26.7-34.0); Mean Corpuscular Volume 91.4 fL (81.0-99.0); Platelet Count 289 10^3/uL (150-450); Red Blood Count 4.21 10^6/uL (4.20-5.40); White Blood Count 3.9 10^3/uL (4.0-11.0)
--- NOTE | 2024-12-06 08:40 | MM_ITS ---
Patient Name: DESI FAIR MR#: [id number] : 1960 Exam Date: 12/06/2024 Ordering Doctor: DR CAM GORDON D.O. RADIOLOGY REPORT PROCEDURE: MM TOMOSYNTHESIS SCREENING BI COMPARISON: MM TOMOSYNTHESIS SCREENING BI, 11/09/2023. MG MAMM SCREEN 3D CHAD CAD, 02/11/2022. MG MAMM SCREEN 3D CHAD CAD, 09/21/2020. MG MAMM CHAD SCRN W CAD DIG, 09/01/2012. INDICATIONS: Screening Calculator Name NCI Breast Cancer Risk Assessment Tool 5 Year Breast Cancer Risk 1.30% Lifetime Breast Cancer Risk 5.50% Personal Breast Cancer No Personal Ovarian Cancer No Treatments None Family Cancers Mother with bladder cancer at age 73; Father with skin cancer at age 72. LOCATION: [facility] BREAST COMPOSITION: The breasts are heterogeneously dense, which may obscure small masses. FINDINGS: RIGHT BREAST: No significant suspicious finding. LEFT BREAST: No significant suspicious finding. DIAGNOSTIC CATEGORY 1--NEGATIVE. RECOMMENDATIONS: ROUTINE MAMMOGRAM AND CLINICAL EVALUATION IN 12 MONTHS. Dictated by: William Bradford DO on 12/06/2024 at 12:58 Approved by: William Bradford DO on 12/06/2024 at 13:02
[2024-12-06 08:41] LABS: Alanine Aminotransferase 35 U/L (14-59); Albumin Globulin Ratio 1.1; Albumin Level 3.9 g/dL (3.4-5.0); Alkaline Phosphatase 56 U/L (46-116); Anion Gap 13.2; Aspartate Amino Transferase 16 U/L (15-37); Blood Urea Nitrogen 17.0 mg/dL (7.0-18.0); Calcium 9.0 mg/dL (8.5-10.1); Carbon Dioxide 30.0 mmol/L (21.0-32.0); Chloride 105 mmol/L (98-107); Cholesterol 148 mg/dL (<=200); Estimated GFR (African America >60 (>=60 mL/min/1.73m^2); Estimated GFR (Non-African Ame >60 (>=60 mL/min/1.73m^2); Globulin 3.4 g/dL; Glucose 101 mg/dL (74-106); HDL Cholesterol 89 mg/dL (40-60); Potassium 4.2 mmol/L (3.5-5.1); Sodium 144 mmol/L (136-145); Thyroid Stimulating Hormone 1.205 uIU/mL (0.358-3.740); Total Protein 7.3 g/dL (6.4-8.2); Triglycerides 104 mg/dL (<=150); VLDL CHOLESTEROL 20.8 mg/dL
== END 2024-12-06 08:03 | disposition home or self-care (01) ==
LOC: LAB 08:02
PROVIDERS: PCP Internal Medicine; Visit Provider Internal Medicine
DX: Z00.00 Encounter for general adult medical examination without abnormal findings (principal); F17.211 Nicotine dependence, cigarettes, in remission; R91.8 Other nonspecific abnormal finding of lung field
CPT/HCPCS: 36415; 71271; 77063; 77067; 80053; 80061; 84443; 85025

== ENCOUNTER 2025-01-06 15:51 | Outpatient (OUT) | payer OTHER, SELFPAY ==
--- OUTSIDE RECORDS SUMMARY | 2025-01-06 15:58 | XMS_ITS | CCD ---
Author Organization [facility] [employer]ini[employer] Care Team Providers Care Afric[employer] Studies Professor Name Role Phone CRISELDA, HAI N Unavailable Unavailable CRISELDA, HAI [...] / Caffeine / salicylamide Drug Allergy rash [employer] Other (18 sources) Codeine Drug Allergy 05-08-19 24 Unknown, Itching, hallucinations [facility] (18 sources) HYDROmorphone Drug Allergy 05-08-19 24 Unknown, Unknown Reaction [facility] (12 sources) NITROFURANTOIN, MACROCRYSTALS / Nitrofurantoin, Monohydrate Drug Allergy Unknown [employer] [facility] [employer] Other (18 sources) Sulfacetamide Drug Allergy 05-08-[address] [facility] (18 sources) zonisamide Drug Allergy 05-08-19 24 Unknown, Chest Pain, dyspnea [facility] (1 source) Codeine Drug Allergy [facility] (1 source) HYDROmorphone Drug Allergy [facility] (1 source) Ketorolac Drug Allergy [facility] (1 source) Meperidine Drug Allergy [facility] (1 source) Sulfonamides (Antibiotic) Drug allergy (disorder) [facility] (4 sources) Substance with sulfonamide structure and antibacterial mechanism of action (substance) Drug allergy 01-28-20 15 Unknown [employer] Other (6 sources) Acetaminophen Drug Allergy 05-08-19 24 Itching, dyspnea, redness of face [facility] (6 sources) HYDROcodone Drug Allergy 05-08-19 24 Itching, dyspnea, redness of face [facility] (6 sources) Nitrofurantoin Drug Allergy 05-08-19 24 Unknown Reaction [facility] (6 sources) Sulfonamides (Antibiotic) Allergy to substance 05-08-19 24 Itching, rash , dyspnea [facility] Comment on above: Onset Date: 01/28/20 15 (6 sources) Pain Relief Allergy to substance 11-02-[address] [facility] Medications Current Medications Medication Drug Class(es) Dates [...] Onset: 02-16-2022 Chronic Other aftercare (1 source) [facility] (current) use of aspirin; Translations: [LONGTERM CURRENT USE OF ASPIRIN] Onset: 07-01-2022 Episodic [...] in Upper respiratory specimen by Rapid immunoassay [facility] No Panel Informationon 04-04 Influenza Type A (Rapid) Negative [facility] POC SARS CoV-2 Antigen Negative [facility] CBC AUTO DIFFon 06-29-2022 BASO # 0.1 103/ul Normal 0.0-0.1 [facility] Comment on above: Performed By: #### C BC ####[facility] [address] [place], [place] [address]Dr. Argentinaanalilia Pérez Basophils/100 WBC (Bld) 1.0 % Normal 0.2-2.0 [facility] Comment on above: Performed By: #### C BC ####[facility] X[address] [place], [place] [address]Dr. Brady Pérez EO # 0.2 103/ul Normal 0.0-0.7 [facility] Comment on above: Performed By: #### C BC ####[facility] [address] [place], [place] [address]Dr. Brady Pérez Eosinophils/100 WBC (Bld) 3.5 % Normal 0.9-7.0 [facility] Comment on above: Performed By: #### C BC ####[facility] Ydzvjysiuo[address] [place], [place] [address]Dr. Brady Pérez Erythrocyte distribution width (RBC) [Ratio] 13.2 % Normal 11.0-15.0 [facility] Comment on above: Performed By: #### C BC ####[facility] [address] [place] [address]Dr. Brady Pérez Hematocrit (Bld) [Volume fraction] 41.5 % Normal 36.0-48.0 [facility] Comment on above: Performed By: #### C BC ####[facility] [address] [place] [address]Dr. Brady Pérez Hemoglobin (Bld) [Mass/Vol] 14.1 g/dL Normal 12.0-16.0 [facility] Comment on above: Performed By: #### C BC ####[facility] [address]fwrb[address] [place] [address]Dr. Brady Pérez IG # 0.01 10e3/ul Normal 0.00-0.03 [facility] Comment on above: Performed By: #### C BC ####[facility] [address] [place], [place] [address]Dr. Brady Pérez IG % 0.2 % Normal 0.0-0.5 [facility] Comment on above: Performed By: #### C BC ####[facility] [address]ugch[address]yn[address] [place], [place] [address]Dr. Brady Pérez LYMPH # 2.5 103/ul Normal 1.2-3.8 [facility] Comment on above: Performed By: #### C BC ####[facility] [address] [place] [address]Dr. Brady Pérez Lymphocytes/100 WBC (Bld) 48.3 % Normal 20.5-60.0 [facility] Comment on above: Performed By: #### C BC ####[facility] [address]ks[address]so[address] [place], [place] [address]Dr. Brady Pérez MANUAL DIFF REQ NO Normal [facility] Comment on above: Performed By: #### C BC ####[facility] U[address]utl[address] [place], [place] [address]Dr. Brady Pérez MCH (RBC) [Entitic mass] 30.8 pg Normal 26.7-34.0 [facility] Comment on above: Performed By: #### C BC ####[facility] [address] [place] [id number]. Brady Pérez MCHC (RBC) [Mass/Vol] 34.0 g/dL Normal 29.9-35.2 [facility] Comment on above: Performed By: #### C BC ####[facility] [address]tsr[address] [place] [id number]. Brady Pérez MCV (RBC) [Entitic vol] 90.6 fL Normal 81.0-99.0 [facility] Comment on above: Performed By: #### C BC ####[facility] Lxejmlqkxd[address] [place] [id number]. Brady Beto MONO # 0.6 103/ul Normal 0.3-0.8 [facility] Comment on above: Performed By: #### C BC ####[facility] Flasfl[address]vc[address] [place], [place] [address]Dr. Brady Pérez Monocytes/100 WBC (Bld) 12.2 % Critically high 1.7-12.0 [facility] Comment on above: Performed By: #### C BC ####[facility] Mzjugg[address] [place], [place] [address]Dr. Brady Pérez NEUT # 1.8 103/ul Normal 1.4-6.5 [facility] Comment on above: Performed By: #### C BC ####[facility] S[address]afzx[address] [place], [place] [address]Dr. Brady Pérez Neutrophils/100 WBC (Bld) 34.8 % Critically low 43.0-75.0 [facility] Comment on above: Performed By: #### C BC ####[facility] Ojnfymmnir[address] [place], [place] [address]Dr. Brady Pérez Platelet mean volume (Bld) [Entitic vol] 9.4 fL Critically low 9.5-13.5 [facility] Comment on above: Performed By: #### C BC ####[facility] [address] [place], [place] [id number]. Brady Pérez PLT 296 103/ul Normal 150-450 [facility] Comment on above: Performed By: #### C BC ####[facility] [address] [place], [place] [address]TdLola Pérez RBC 4.58 106/ul Normal 4.20-5.40 [facility] Comment on above: Performed By: #### C BC ####[facility] [address]39[address] [place], [place] [address]ZiDr. Brady Pérez WBC 5.2 103/ul Normal 4.0-11.0 [facility] Comment on above: Performed By: #### C BC ####[facility] S[address] [place] [id number]. Brady Pérez PROF CHEM 8 (BAS METB)on Anion gap [Moles/Vol] 14.0 mmol/L Normal [facility] Comment on above: Performed By: #### B MP #### [facility] [address] [place] [address] [address] Brady Pérez Calcium [Mass/Vol] 9.2 mg/dL Normal 8.5-10.1 [facility] Comment on above: Performed By: #### B MP #### [facility] [address] [place] [address] [address] Brady Pérez Chloride [Moles/Vol] 104 mmol/L Normal 98-107 [facility] Comment on above: Performed By: #### B MP #### [facility] [address] [place] [address] [address] Brady Pérez CO2 [Moles/Vol] 28.1 mmol/L Normal 21.0-32.0 [facility] Comment on above: Performed By: #### B MP #### [facility] [address] [place] [address] [address] Brady Pérez Creatinine [Mass/Vol] 1.02 mg/dL Normal 0.55-1.02 [facility] Comment on above: Performed By: #### B MP #### [facility] [address] [place] [address] [address] Brady Pérez EGFR-AF BARBADIAN >60 Normal >=60 [facility] Comment on above: Performed By: #### B MP #### [facility] [address] [place] [address] [address] Brady Pérez EGFR-NON AF BARBADIAN 55 mL/min/1.73m2 Critically low >=60 [facility] Comment on above: Performed By: #### B MP #### [facility] [address] [place] [address] [address] Brady Pérez Glucose [Mass/Vol] 102 mg/dL Normal 74-106 [facility] Comment on above: Performed By: #### B MP #### [facility] [address] [place] [address] [address] Brady Pérez Potassium [Moles/Vol] 4.1 mmol/L Normal 3.5-5.1 [facility] Comment on above: Performed By: #### B MP #### [facility] [address] [place] [address] [address] Brady Pérez Sodium [Moles/Vol] 142 mmol/L Normal 136-145 [facility] Comment on above: Performed By: #### B MP #### [facility] [address] [place] [address] [address] Brady Pérez Urea nitrogen [Mass/Vol] 13.0 mg/dL Normal 7.0-18.0 [facility] Comment on above: Performed By: #### B MP #### [facility] [address] [place] [address] [address] Brady Pérez Urea nitrogen/Creatinin e [Mass ratio] 12.7 mg/mg Normal [facility] Comment on above: Performed By: #### B MP #### [facility] [address] [place] [address] [address] Brady Pérez MG MAMM SCREEN 3D CHAD CADon 02-11-2022 MG MAMM SCREEN 3D CHAD CAD Patient: DESI KNOTT Exam Date: 02/11/2022 : 1960 Gender:F Ordering : DR ZACARIAS STALLINGS D.O. Admission #: [id number] Family : Order #: [id number] CLICK HERE TO VIEW EXAM RADIOLOGY REPORT [...] bladder cancer at age 74. LOCATION: [facility] BREAST COMPOSITION: Heterogeneously dense,which may obscure [...] M.D. on 02/14/2022 at 14:51 Normal [facility] XR DEXA BONE DENSITYon 02-11 XR DEXA BONE DENSITY DEXA Bone Density Study CLINICAL: Evaluate bone mineral density. Postmenopausal COMPARISON: None FINDINGS: The bone density study was assessed by dual-energy x-ray absorptiometry with the [employer] scanner. The test results are expressed in [...] MARGO NUNN Date: 2022-02-11 09:26 Normal [facility] CBC AUTO DIFFon 02-05-2022 BASO # 0.1 103/ul Normal 0.0-0.1 [facility] Comment on above: Performed By: #### C BC #### [facility] [address] [address] [address] Brady Pérez Basophils/100 WBC (Bld) 1.0 % Normal 0.2-2.0 [facility] Comment on above: Performed By: #### C BC #### [facility] [address] [place], [place] [address] Dr. Brady Pérez EO # 0.2 103/ul Normal 0.0-0.7 [facility] Comment on above: Performed By: #### C BC #### [facility] [address] [place] [address] Dr. Brady Pérez Eosinophils/100 WBC (Bld) 2.6 % Normal 0.9-7.0 [facility] Comment on above: Performed By: #### C BC #### [facility] [address] [place] [address] Dr. Brady Pérez Erythrocyte distribution width (RBC) [Ratio] 13.7 % Normal 11.0-15.0 [facility] Comment on above: Performed By: #### C BC #### [facility] [address] [place] [address] Dr. Brady Pérez Hematocrit (Bld) [Volume fraction] 43.6 % Normal 36.0-48.0 [facility] Comment on above: Performed By: #### C BC #### [facility] [address] [place] [address] Dr. Brady Pérez Hemoglobin (Bld) [Mass/Vol] 14.7 g/dL Normal 12.0-16.0 [facility] Comment on above: Performed By: #### C BC #### [facility] [address] [place] [address] Dr. Brady Pérez IG # 0.01 10e3/ul Normal 0.00-0.03 [facility] Comment on above: Performed By: #### C BC #### [facility] [address] [place] [address] Dr. Brady Pérez IG % 0.2 % Normal 0.0-0.5 [facility] Comment on above: Performed By: #### C BC #### [facility] [address] [place] [address] Dr. Brady Pérez LYMPH # 2.6 103/ul Normal 1.2-3.8 [facility] Comment on above: Performed By: #### C BC #### [facility] [address] [place] [address] Dr. Brady Pérez Lymphocytes/100 WBC (Bld) 43.6 % Normal 20.5-60.0 [facility] Comment on above: Performed By: #### C BC #### [facility] [address] [place] [address] Dr. Brady Pérez MANUAL DIFF REQ NO Normal [facility] Comment on above: Performed By: #### C BC #### [facility] [address] [place] [address] Dr. Brady Pérez MCH (RBC) [Entitic mass] 30.7 pg Normal 26.7-34.0 [facility] Comment on above: Performed By: #### C BC #### [facility] [address] [place] [address] Dr. Brady Pérez MCHC (RBC) [Mass/Vol] 33.7 g/dL Normal 29.9-35.2 [facility] Comment on above: Performed By: #### C BC #### [facility] [address] [place] [address] Dr. Brady Pérez MCV (RBC) [Entitic vol] 91.0 fL Normal 81.0-99.0 [facility] Comment on above: Performed By: #### C BC #### [facility] [address] [place] [address] Dr. Brady Pérez MONO # 0.7 103/ul Normal 0.3-0.8 [facility] Comment on above: Performed By: #### C BC #### [facility] [address] [place] [address] Dr. Brady Pérez Monocytes/100 WBC (Bld) 11.6 % Normal 1.7-12.0 [facility] Comment on above: Performed By: #### C BC #### [facility] [address] [place] [address] Dr. Brady Pérez NEUT # 2.5 103/ul Normal 1.4-6.5 [facility] Comment on above: Performed By: #### C BC #### [facility] [address] [place] [address] Dr. Brady Pérez Neutrophils/100 WBC (Bld) 41.0 % Critically low 43.0-75.0 [facility] Comment on above: Performed By: #### C BC #### [facility] [address] [place] [address] [address] Brady Pérez Platelet mean volume (Bld) [Entitic vol] 9.3 fL Critically low 9.5-13.5 [facility] Comment on above: Performed By: #### C BC #### [facility] [address] [place] [address] [address] rBady Pérez PLT 317 103/ul Normal 150-450 [facility] Comment on above: Performed By: #### C BC #### [facility] [address] [place] [address] [address] Brady Pérez RBC 4.79 106/ul Normal 4.20-5.40 [facility] Comment on above: Performed By: #### C BC #### [facility] [address] [place] [address] [address] Brady Pérez WBC 6.1 103/ul Normal 4.0-11.0 [facility] Comment on above: Performed By: #### C BC #### [facility] [address] [place] [address] [address] Brday Pérez LIPID PROFILEon 02-05-2022 CHOL-HDL RATIO NORM SEE BELOW Normal [facility] Comment on above: Result Comment: 3.3 - 4.4 LOW RISK 4.4 - 7.1 AVERAGE RISK 7.1 - 11.0 MODERATE RISK >11.0 HIGH RISK Performed By: #### L IPID, MG, CMP, TSH ####[facility] [address] [place] [id number] Pérez Cholesterol [Mass/Vol] 222 mg/dL Critically high <=200 [facility] Comment on above: Performed By: #### L IPID, MG, CMP, TSH ####[facility] [address]ics[address]ntpf[address] [place] [phone]. Brady Pérez Cholesterol in HDL [Mass/Vol] 110 mg/dL Critically high 40-60 [facility] Comment on above: Performed By: #### L IPID, MG, CMP, TSH ####[facility] I[address] [place] [phone]. Brady Pérez Cholesterol in LDL [Mass/Vol] 94.4 mg/dL Normal [facility] Comment on above: Performed By: #### L IPID, MG, CMP, TSH ####[facility] [address] [place] [address]Dr. Brady Pérez Cholesterol.total/ Cholesterol in HDL [Mass ratio] 2.0 {ratio} Normal [facility] Comment on above: Performed By: #### L IPID, MG, CMP, TSH ####[facility] [address] [place] [address]Dr. Brady Pérez HDL NORMAL > or = 60 mg/dl - LO W CARDIOVASCULAR RISK <40 mg/dl - HIGH CARDIOVASCULAR RISK Normal [facility] Comment on above: Performed By: #### L IPID, MG, CMP, TSH ####[facility] [address] [place] [address]Dr. Brady Pérez LDL CALC NORMAL SEE BELOW Normal [facility] Comment on above: Result Comment: <100 mg/dl OPTIMAL 100 - 129 mg/dl NEAR OR ABOVE OPTIMAL 130 - 159 mg/dl BORDERLINE HIGH 160 - 189 mg/dl HIGH >190 mg/dl VERY HIGH Performed By: #### L IPID, MG, CMP, TSH ####[facility] [address] [place] [address]Dr. Brady Pérez Triglyceride [Mass/Vol] 88 mg/dL Normal <=150 [facility] Comment on above: Performed By: #### L IPID, MG, CMP, TSH ####[facility] Q[address]om[address] [place] [address]Dr. Brady Pérez VLDL CALC 17.6 mg/dL Normal [facility] Comment on above: Performed By: #### L IPID, MG, CMP, TSH ####[facility] [address] [place] [address]Dr. Brady Pérez MAGNESIUMon 02-05-2022 Magnesium [Mass/Vol] 2.3 mg/dL Normal 1.8-2.4 [facility] Comment on above: Performed By: #### L IPID, MG, CMP, TSH ####[facility] [address]or[address]swyiw[address] [place] [address]Dr. Brady Pérez PROF 14(COMP METB)on 022 Albumin [Mass/Vol] 3.9 g/dL Normal 3.4-5.0 [facility] Comment on above: Performed By: #### L IPID, MG, CMP, TSH ####[facility] R[address]ud[address]ckm[address] [place] [address]Dr. Brady Pérez Albumin/Globulin [Mass ratio] 1.1 {ratio} Normal [facility] Comment on above: Performed By: #### L IPID, MG, CMP, TSH ####[facility] [address] [place] [address]Dr. Brady Pérez ALP [Catalytic activity/Vol] 63 U/L Normal 46-116 [facility] Comment on above: Performed By: #### L IPID, MG, CMP, TSH ####[facility] Y[address]qrjicth[address] [place] [address]Dr. Brady Pérez ALT [Catalytic activity/Vol] 31 U/L Normal 14-59 [facility] Comment on above: Performed By: #### L IPID, MG, CMP, TSH ####[facility] [address] [place], [place] [address]Dr. Brady Pérez Anion gap [Moles/Vol] 10.3 mmol/L Normal [facility] Comment on above: Performed By: #### L IPID, MG, CMP, TSH ####[facility] Zdflsgpzqe[address] [place] [address]Dr. Brady Pérze AST [Catalytic activity/Vol] 14 U/L Critically low 15-37 [facility] Comment on above: Performed By: #### L IPID, MG, CMP, TSH ####[facility] [address]wtua[address] [place] [address]Dr. Brady Pérez Bilirubin [Mass/Vol] 0.7 mg/dL Normal 0.2-1.0 [facility] Comment on above: Performed By: #### L IPID, MG, CMP, TSH ####[facility] C[address]dtqc[address] [place] [address]Dr. Brady Pérez Calcium [Mass/Vol] 9.1 mg/dL Normal 8.5-10.1 [facility] Comment on above: Performed By: #### L IPID, MG, CMP, TSH ####[facility] Synymsekze[address] [place] [address]Dr. Brady Pérez Chloride [Moles/Vol] 103 mmol/L Normal 98-107 [facility] Comment on above: Performed By: #### L IPID, MG, CMP, TSH ####[facility] V[address]qwjqncd[address] [place] [address]Dr. Brady Pérez CO2 [Moles/Vol] 30.8 mmol/L Normal 21.0-32.0 [facility] Comment on above: Performed By: #### L IPID, MG, CMP, TSH ####[facility] Oqtyedsjeg[address] [place] [address]Dr. Brady Pérez Creatinine [Mass/Vol] 0.76 mg/dL Normal 0.55-1.02 [facility] Comment on above: Performed By: #### L IPID, MG, CMP, TSH ####[facility] E[address]rym[address] [place] [address]Dr. Brady Pérez EGFR-AF BARBADIAN >60 Normal >=60 [facility] Comment on above: Performed By: #### L IPID, MG, CMP, TSH ####[facility] J[address]htk[address] [place] [address]Dr. Brady Pérez EGFR-NON AF BARBADIAN >60 Normal >=60 [facility] Comment on above: Performed By: #### L IPID, MG, CMP, TSH ####[facility] Lpmzgziaoo[address] [place] [address]Dr. Brady Pérez Globulin (S) [Mass/Vol] 3.5 g/dL Normal [facility] Comment on above: Performed By: #### L IPID, MG, CMP, TSH ####[facility] Covzzmtubw[address] [place] [address]Dr. Brady Pérez Glucose [Mass/Vol] 104 mg/dL Normal 74-106 [facility] Comment on above: Performed By: #### L IPID, MG, CMP, TSH ####[facility] V[address]mdthesn[address] [place] [address]Dr. Brady Pérez Potassium [Moles/Vol] 4.1 mmol/L Normal 3.5-5.1 [facility] Comment on above: Performed By: #### L IPID, MG, CMP, TSH ####[facility] Tkvxcelxxl4[address] [place] [address]Dr. Brady Pérez Protein [Mass/Vol] 7.4 g/dL Normal 6.4-8.2 [facility] Comment on above: Performed By: #### L IPID, MG, CMP, TSH ####[facility] Manvlmwymi[address] [place] [address]Dr. Brady Pérez Sodium [Moles/Vol] 140 mmol/L Normal 136-145 [facility] Comment on above: Performed By: #### L IPID, MG, CMP, TSH ####[facility] X[address] [place], [place] [address]Dr. Brady Pérez Urea nitrogen [Mass/Vol] 11.0 mg/dL Normal 7.0-18.0 [facility] Comment on above: Performed By: #### L IPID, MG, CMP, TSH ####[facility] [address]yfc[address] [place], [place] [address]Dr. Brady Pérez Urea nitrogen/Creatinin e [Mass ratio] 14.5 mg/mg Normal [facility] Comment on above: Performed By: #### L IPID, MG, CMP, TSH ####[facility] [address]ip[address]sx[address] [place], [place] [address]Dr. Brady Pérez TSHon 02-05-2022 TSH 1.652 uIU/mL Normal 0.358-3.740 [facility] Comment on above: Performed By: #### L IPID, MG, CMP, TSH ####[facility] Wh[address]azgy[address] [place], [place] [address]Dr. Brady Pérez VITAMIN D 25 OHon 02-05-2022 VIT D 25-OH 35.5 ng/mL Normal [facility] Comment on above: Performed By: #### V ITAD #### [facility] [address] [place] [address] Dr. Brady Pérez VIT D RANGES SEE BELOW Normal [facility] Comment on above: Result Comment: <20 ng/mL Vit D deficient 20 - <30 ng/mL Vit D insufficient 30 - 100 ng/mL Vit D sufficient >100 ng/mL Potential Toxicity Performed By: #### V ITAD #### [facility] [address] [place] [address] Dr. Brady Pérez CBC AUTO DIFFon 12-27-2021 BASO # 0.1 103/ul Normal 0.0-0.1 [facility] Comment on above: Performed By: #### C BC ####[facility] [address]vxrp[address] [place] [address]DrLola Pérez Basophils/100 WBC (Bld) 1.0 % Normal 0.2-2.0 [facility] Comment on above: Performed By: #### C BC ####[facility] M[address] [place], [place] [address]DrLola Pérez EO # 0.1 103/ul Normal 0.0-0.7 [facility] Comment on above: Performed By: #### C BC ####[facility] [address]kw[address] [place], [place] [address]Dr. Brady Pérez Eosinophils/100 WBC (Bld) 1.6 % Normal 0.9-7.0 [facility] Comment on above: Performed By: #### C BC ####[facility] [address]ns[address]sym[address] [place], [place] [address]DrLola Pérez Erythrocyte distribution width (RBC) [Ratio] 13.5 % Normal 11.0-15.0 [facility] Comment on above: Performed By: #### C BC ####[facility] [address]ks[address] [place], [place] [address]DrLola Pérez Hematocrit (Bld) [Volume fraction] 43.9 % Normal 36.0-48.0 [facility] Comment on above: Performed By: #### C BC ####[facility] [address]hb[address] [place], [place] [address]DrLola Pérez Hemoglobin (Bld) [Mass/Vol] 14.4 g/dL Normal 12.0-16.0 [facility] Comment on above: Performed By: #### C BC ####[facility] [address]rbvtl[address] [place] [address]DrLola Pérez IG # 0.01 10e3/ul Normal 0.00-0.03 [facility] Comment on above: Performed By: #### C BC ####[facility] [address]tyvdfxn[address] [place], [place] [address]DrLola Pérez IG % 0.1 % Normal 0.0-0.5 [facility] Comment on above: Performed By: #### C BC ####[facility] Jen[address]rt[address]qxh[address] [place], [place] [address]DrLola Pérez LYMPH # 2.4 103/ul Normal 1.2-3.8 [facility] Comment on above: Performed By: #### C BC ####[facility] [address]lr[address] [place], [place] [address]DrLola Pérez Lymphocytes/100 WBC (Bld) 34.3 % Normal 20.5-60.0 [facility] Comment on above: Performed By: #### C BC ####[facility] [address]xy[address] [place], [place] [address]DrLola Pérez MANUAL DIFF REQ NO Normal [facility] Comment on above: Performed By: #### C BC ####[facility] M[address]strqnz[address] [place], [place] [address]DrLola Pérez MCH (RBC) [Entitic mass] 30.6 pg Normal 26.7-34.0 [facility] Comment on above: Performed By: #### C BC ####[facility] [address]fuez[address] [place], [place] [address]DrLola Pérez MCHC (RBC) [Mass/Vol] 32.8 g/dL Normal 29.9-35.2 [facility] Comment on above: Performed By: #### C BC ####[facility] [address] [place], [place] [address]DrLola Pérez MCV (RBC) [Entitic vol] 93.2 fL Normal 81.0-99.0 [facility] Comment on above: Performed By: #### C BC ####[facility] [address] [place], [place] [address]DrLola Brady Pérez MONO # 0.6 103/ul Normal 0.3-0.8 [facility] Comment on above: Performed By: #### C BC ####[facility] [address] [place], [place] [address]DrLola Brady Beto Monocytes/100 WBC (Bld) 9.1 % Normal 1.7-12.0 [facility] Comment on above: Performed By: #### C BC ####[facility] [address] [place], [place] [address]DrLola Brady Pérez NEUT # 3.8 103/ul Normal 1.4-6.5 [facility] Comment on above: Performed By: #### C BC ####[facility] Go[address] [place], [place] [address]Dr. Brady Beto Neutrophils/100 WBC (Bld) 53.9 % Normal 43.0-75.0 [facility] Comment on above: Performed By: #### C BC ####[facility] [address] [place], [place] [address]DrLola Brady Beto Platelet mean volume (Bld) [Entitic vol] 9.7 fL Normal 9.5-13.5 [facility] Comment on above: Performed By: #### C BC ####[facility] [address] [place], [place] [address]Dr. Brady Beto PLT 360 103/ul Normal 150-450 [facility] Comment on above: Performed By: #### C BC ####[facility] [address] [place], [place] [address]DrLola Pérez RBC 4.71 106/ul Normal 4.20-5.40 [facility] Comment on above: Performed By: #### C BC ####[facility] [address] [place], [place] [address]DrLola Pérez WBC 7.0 103/ul Normal 4.0-11.0 [facility] Comment on above: Performed By: #### C ####[facility] [address] [place], [place] [address] Pé[address] CT STROKE HEAD WOon 12-28-19 22 [...] REJI GOULD Date: 2021-12-27 05:14 Normal [facility] CTA HEAD WO W CONon 12-28-19 [...] The left ECA is patent. The right [employer] is patent. The right vertebral artery is [...] REJI GOULD Date: 2021-12-27 06:39 Normal [facility] Covid-19 PCR (CVDTB)on 12-18 SARS-CoV-2 (COVID-19) RNA BRETT+probe Ql (Unsp spec) Not detected Normal NOT DETECTED [facility] Comment on above: Result Comment: When [...] for this test is supported by the [place] of Health and Human Service's declaration that [...] used). Performed By: #### C VDTB #### [facility] [address] [place] [address] Dr. Brady Pérez PROF 14(COMP METB)on 022 Albumin [Mass/Vol] 4.0 g/dL Normal 3.4-5.0 [facility] Comment on above: Performed By: #### C MP #### [facility] [address] [place] [address] Dr. Brady Pérez Albumin/Globulin [Mass ratio] 1.1 {ratio} Normal [facility] Comment on above: Performed By: #### C MP #### [facility] [address] [place] [address] Dr. Brady Pérez ALP [Catalytic activity/Vol] 64 U/L Normal 46-116 [facility] Comment on above: Performed By: #### C MP #### [facility] [address] [place] [address] Dr. Brady Pérez ALT [Catalytic activity/Vol] 29 U/L Normal 14-59 [facility] Comment on above: Performed By: #### C MP #### [facility] [address] [place] [address] Dr. Brady Pérez Anion gap [Moles/Vol] 11.9 mmol/L Normal [facility] Comment on above: Performed By: #### C MP #### [facility] [address] [address] [address] Brady Pérez AST [Catalytic activity/Vol] 16 U/L Normal 15-37 [facility] Comment on above: Performed By: #### C MP #### [facility] [address] [address] [address] Brady Pérez Bilirubin [Mass/Vol] 1.1 mg/dL Critically high 0.2-1.0 [facility] Comment on above: Performed By: #### C MP #### [facility] [address] [address] [address] Brady Pérez Calcium [Mass/Vol] 8.8 mg/dL Normal 8.5-10.1 [facility] Comment on above: Performed By: #### C MP #### [facility] [address] [address] [address] Brady Pérez Chloride [Moles/Vol] 104 mmol/L Normal 98-107 [facility] Comment on above: Performed By: #### C MP #### [facility] [address] [address] [address] Brady Pérez CO2 [Moles/Vol] 26.7 mmol/L Normal 21.0-32.0 [facility] Comment on above: Performed By: #### C MP #### [facility] [address] [address] [address] Brady Pérez Creatinine [Mass/Vol] 1.00 mg/dL Normal 0.55-1.02 [facility] Comment on above: Performed By: #### C MP #### [facility] [address] [address] [address] Brady Pérez EGFR-AF BARBADIAN >60 Normal >=60 [facility] Comment on above: Performed By: #### C MP #### [facility] [address] [address] [address] Brady Pérez EGFR-NON AF BARBADIAN 57 mL/min/1.73m2 Critically low >=60 [facility] Comment on above: Performed By: #### C MP #### [facility] [address] [address] [address] Brady Pérez Globulin (S) [Mass/Vol] 3.5 g/dL Normal [facility] Comment on above: Performed By: #### C MP #### [facility] [address] [address] [address] Brady Pérez Glucose [Mass/Vol] 103 mg/dL Normal 74-106 [facility] Comment on above: Performed By: #### C MP #### [facility] [address] [address] [address] Brady Pérez Potassium [Moles/Vol] 4.6 mmol/L Normal 3.5-5.1 [facility] Comment on above: Performed By: #### C MP #### [facility] [address] [place] [address] Dr. Brady Pérez Protein [Mass/Vol] 7.5 g/dL Normal 6.4-8.2 [facility] Comment on above: Performed By: #### C MP #### [facility] [address] [address] [address] Brady Pérez Sodium [Moles/Vol] 138 mmol/L Normal 136-145 [facility] Comment on above: Performed By: #### C MP #### [facility] [address] [address] [address] Brady Pérez Urea nitrogen [Mass/Vol] 17.0 mg/dL Normal 7.0-18.0 [facility] Comment on above: Performed By: #### C MP #### [facility] [address] [address] [address] Brady Pérez Urea nitrogen/Creatinin e [Mass ratio] 17.0 mg/mg Normal [facility] Comment on above: Performed By: #### C MP #### [facility] [address] [address] [address] Brady Pérez PROTIMEon 12-27-2021 INR Coag (PPP) [Relative time] 1.03 {INR} Normal [facility] Comment on above: Performed By: #### P TT, PT #### [facility] [address] [address] [address] Brady Pérez INR GUIDELINES SEE BELOW Normal [facility] Comment on above: Result Comment: GARRICK RED INR: 2.0 - 3.0 CONDITIONS NOT LISTED BELOW 2.5 - 3.5 FOR PROSTHETIC HEART VALVE REPLACEMENT 2.5 - 3.5 RECURRENT THROMBOSIS Performed By: #### P TT, PT #### [facility] [address] [address] [address] Brady Pérez PT Coag (PPP) [Time] 11.1 s Normal 9.0-11.6 [facility] Comment on above: Performed By: #### P TT, PT #### [facility] [address] [place] [address] Dr. Brady Pérez PTTon 12-27-2021 aPTT Coag (Bld) [Time] 26.3 s Normal 22.3-36.2 [facility] Comment on above: Performed By: #### P TT, PT #### [facility] [address] [address] [address] Brady Pérez US ST HEAD_NECKon 09-10-2021 [...] by: NICK KASPER Date: 2021-09-10 15:45 Normal [facility] XR CHEST 2 Von 09-10-2021 XR [...] VINH UMANZOR Date: 2021-09-10 12:54 Normal [facility]18 SARS-CoV-2 (COVID-19) RNA BRETT+probe Ql (Unsp spec) Not detected Normal NOT DETECTED [facility] Comment on above: Result Comment: This test is not yet approved or cleared by the [place] FDA. When there are no FDA-approved or cleared tests available, and other criteria are met, FDA can make tests available under an emergency access mechanism called an Emergency Use Authorization (EUA). The EUA for this test is supported by the [place] of Health and Human Service's (HHS's) declaration [...] consistent with SARS-CoV-2. Performed By: #### [facility] ####[facility] [address] [place], [place] [address]ReLola Pérez Operative Reporton Operative Report MR#: [id number] [facility] Pt. Name: Desi Knott Room #: [...] nerve injuries, spinal cord injury, and cardiovascularand LEVI MAKER side effects with possibility of vascular entry [...] 02/02/2017/02:31 P/Jaydon Del Rio Trans: 02/02/2017 02:31 P/[id number] c: Hai Aburto M.D. [address] [place] [address] [employer] 113[address] [facility] [address] [facility] Operative Reporton 7 Operative Report MR#: [id number] [facility] Pt. Name: Desi Knott Room #: [...] nerve injuries, spinal cord injury, and cardiovascularand LEVI MAKER side effects with possibility of vascular entry [...] 01/19/2017/03:14 P/Jaydon Del Rio Trans: 01/19/2017 03:14 [id number] Normal [facility] Vital Signs Date Time Vital Sign Value Performing Clinician Facility 11-15-2024 09:26-0400 Body height 162.56 cm Zacarias Ball DO Work Phone: [facility] 11-15-2024 09:26-0400 Body mass index (BMI) [Ratio] 23.8 kg/m2 Zacarias Ball DO Work Phone: [facility] 11-15-2024 09:26-0400 Body weight 63.1 kg Zacarias Ball DO Work Phone: [facility] 11-15-2024 09:26-0400 Diastolic blood pressure 85 mm[Hg] Zacarias Ball DO Work Phone: [facility] 11-15-2024 09:26-0400 Heart rate 60 /min Zacarias Ball DO Work Phone: [facility] 11-15-2024 09:26-0400 Respiratory rate 12 /min Zacarias Ball DO Work Phone: [facility] 11-15-2024 09:26-0400 Systolic blood pressure 136 mm[Hg] Zacarias Ball DO Work Phone: [facility] 05-10-2024 09:36-0500 Body height 162.56 cm [facility] 05-10-2024 09:36-0500 Body mass index (BMI) [Ratio] 24.2 kg/m2 [facility] 05-10-2024 09:36-0500 Body weight 64.01 kg [facility] 05-10-2024 09:36-0500 Diastolic blood pressure 80 mm[Hg] [facility] 05-10-2024 09:36-0500 Heart rate 70 /min [facility] 05-10-2024 09:36-0500 Respiratory rate 12 /min [facility] 05-10-2024 09:36-0500 Systolic blood pressure 139 mm[Hg] [facility] 04-04-2024 11:43-0500 Body height 162.56 cm [facility] 04-04-2024 11:43-0500 Body mass index (BMI) [Ratio] 23.8 kg/m2 [facility] 04-04-2024 11:43-0500 Body weight 63.16 kg [facility] 04-04-2024 11:43-0500 Diastolic blood pressure 90 mm[Hg] [facility] 04-04-2024 11:43-0500 Heart rate 69 /min [facility] 04-04-2024 11:43-0500 Respiratory rate 12 /min [facility] 04-04-2024 11:43-0500 Systolic blood pressure 134 mm[Hg] [facility] 11-03-2023 10:05-0400 Body height 162.56 cm [facility] 11-03-2023 10:05-0400 Body mass index (BMI) [Ratio] 23.4 kg/m2 [facility] 11-03-2023 10:05-0400 Body weight 61.91 kg [facility] 11-03-2023 10:05-0400 Diastolic blood pressure 82 mm[Hg] [facility] 11-03-2023 10:05-0400 Heart rate 57 /min [facility] 11-03-2023 10:05-0400 Respiratory rate 12 /min [facility] 11-03-2023 10:05-0400 Systolic blood pressure 135 mm[Hg] [facility] 07-31-2023 10:34-0400 Body height 162.56 cm [facility] 07-31-2023 10:34-0400 Body mass index (BMI) [Ratio] 23.5 kg/m2 [facility] 07-31-2023 10:34-0400 Body weight 62.19 kg [facility] 07-31-2023 10:34-0400 Diastolic blood pressure 90 mm[Hg] [facility] 07-31-2023 10:34-0400 Heart rate 52 /min [facility] 07-31-2023 10:34-0400 Respiratory rate 12 /min [facility] 07-31-2023 10:34-0400 Systolic blood pressure 156 mm[Hg] [facility] 05-08-2023 16:41-0500 Diastolic blood pressure 88 mm[Hg] [facility] 05-08-2023 16:41-0500 Systolic blood pressure 138 mm[Hg] [facility] 05-08-2023 15:38-0500 Body height 162.56 cm [facility] 05-08-2023 15:38-0500 Body mass index (BMI) [Ratio] 23.8 kg/m2 [facility] 05-08-2023 15:38-0500 Body weight 62.82 kg [facility] 05-08-2023 15:38-0500 Diastolic blood pressure 87 mm[Hg] [facility] 05-08-2023 15:38-0500 Heart rate 54 /min [facility] 05-08-2023 15:38-0500 Respiratory rate 12 /min [facility] 05-08-2023 15:38-0500 Systolic blood pressure 153 mm[Hg] [facility] 11-01-2022 15:30-0400 Body height 162.56 cm Zacarias Ball Other [facility] [employer] Other 11-01-2022 15:30-0400 Body mass index (BMI) [Ratio] 23 kg/m2 Zacarais Ball Other [facility] [employer] Other 11-01-2022 15:30-0400 Body weight 60.78 kg Zacarias Ball Other [facility] [employer] Other 11-01-2022 15:30-0400 Diastolic blood pressure 83 mm[Hg] Zacarias Ball Other [facility] [employer] Other 11-01-2022 15:30-0400 Respiratory rate 12 /min Zacarias Ball Other [facility] [employer] Other 11-01-2022 15:30-0400 Systolic blood pressure 137 mm[Hg] Zacarias Ball Other [facility] [employer] Other 08-01-2022 15:00-0400 Body height 162.56 cm Zacarias Ball Other [employer] Other 08-01-2022 15:00-0400 Body mass index (BMI) [Ratio] 22.93 kg/m2 Zacarias Ball Other [employer] Other 08-01-2022 15:00-0400 Body weight 60.6 kg Zacarias Ball Other [employer] Other 08-01-2022 15:00-0400 Diastolic blood pressure 81 mm[Hg] Zacarias Ball Other [employer] Other 08-01-2022 15:00-0400 Respiratory rate 12 /min Zacarias Ball Other [employer] Other 08-01-2022 15:00-0400 Systolic blood pressure 137 mm[Hg] Zacarias Ball Other [employer] Other 06-13-2022 15:00-0400 Body height 162.56 cm Zacarias Ball Other [employer] Other 06-13-2022 15:00-0400 Body mass index (BMI) [Ratio] 22.76 kg/m2 Zacarias Ball Other [employer] Other 06-13-2022 15:00-0400 Body weight 60.15 kg Zacarias Ball Other [employer] Other 06-13-2022 15:00-0400 Diastolic blood pressure 92 mm[Hg] Zacarias Ball Other [employer] Other 06-13-2022 15:00-0400 Respiratory rate 12 /min Zacarias Ball Other [employer] Other 06-13-2022 15:00-0400 Systolic blood pressure 154 mm[Hg] Zacarias Stallings Other [employer] Other 05-02-2022 15:00-0500 Body height 162.56 cm Zacarias Stallings Other [employer] Other 05-02-2022 15:00-0500 Body mass index (BMI) [Ratio] 22.55 kg/m2 Zacarias Stallings Other [employer] Other 05-02-2022 15:00-0500 Body weight 59.6 kg Zacarias Stallings Other [employer] Other 05-02-2022 15:00-0500 Diastolic blood pressure 90 mm[Hg] Zacarias Stallings Other [employer] Other 05-02-2022 15:00-0500 Respiratory rate 12 /min Zacarias Stallings Other [employer] Other 05-02-2022 15:00-0500 Systolic blood pressure 132 mm[Hg] Zacarias Stallings Other [employer] Other Encounters Encounter Date Encounter Type Care Provider Facility Start: 11-15-2024 End: 11-15-2024 ambulatory Zacarias Stallings DO Work Phone: [facility] Work Phone: Start: 11-15-2024 End: 11-15-2024 Patient encounter procedure Zacarias Stallings DO -[facility] Work Phone: Start: 11-15-2024 End: 11-15-2024 Patient encounter status Zacarias Chandrakant [facility] Start: 05-10-2024 End: 05-10-2024 ambulatory [facility] Work Phone: Start: 05-10-2024 End: 05-10-2024 Patient encounter procedure [facility] Work Phone: Start: 04-04-2024 End: 04-04-2024 ambulatory [facility] Work Phone: Start: 04-04-2024 End: 04-04-2024 Patient encounter procedure [facility] Physician [facility] Work Phone: Start: 01-17-2024 Non-patient / Non-visit [facility] Physician [facility] Work Phone: Start: 11-03-2023 End: 11-03-2023 ambulatory [facility] Work Phone: Start: 11-03-2023 End: 11-03-2023 Encounter for general adult medical examination without abnormal findings [facility] Start: 11-03-2023 End: 11-03-2023 Patient encounter procedure [facility] Physician [facility] Medical [facility] Work Phone: Start: 07-31-2023 End: 07-31-2023 ambulatory [facility] Work Phone: Start: 07-31-2023 End: 07-31-2023 Patient encounter procedure [facility] Physician [facility] Medical [facility] Work Phone: Start: 05-31-2023 Non-patient / Non-visit [facility] Physician [facility] Work Phone: Start: 05-08-2023 End: 05-08-2023 ambulatory [facility] Work Phone: Start: 05-08-2023 End: 05-08-2023 Patient encounter procedure [facility] Physician [facility] Work Phone: Start: 01-02-2023 End: 01-02-2023 ambulatory Zacarias Stallings Other [facility] [employer] Other Start: 01-02-2023 Telephone encounter Zacarias Stallings [facility] Medical [facility] Start: 12-22-2022 End: 12-22-2022 ambulatory Zacarias Stallings Other [employer] Other Start: 12-22-2022 Telephone encounter Zacarias Ball [facility] Start: 11-08-2022 End: 11-08-2022 ambulatory Zacarias Ball Other [employer] Other Start: 11-08-2022 Telephone encounter Zacarias Ball [facility] Start: 11-01-2022 End: 11-01-2022 ambulatory Zacarias Ball Other [employer] Other Start: 11-01-2022 Encounter for genera l adult medical examination without abnormal findings Zacarias Ball [facility] Start: 11-01-2022 Periodic preventive med est patient 40-64yrs Zacarias Ball [facility] Start: 08-01-2022 End: 08-01-2022 ambulatory Zacarias Ball Other [employer] Other Start: 08-01-2022 Office outpatient vi sit 15 minutes Zacarias Ball [facility] Start: 06-29-2022 Telephone encounter Zacarias Ball [facility] Start: 06-29-2022 End: 06-29-[address] MARV ACEVEDO . [employer] Other Start: 06-13-2022 End: 06-13-2022 ambulatory Zacarias Ball Other [employer] Other Start: 06-13-2022 Office outpatient vi sit 25 minutes Zacarias Ball [facility] Start: 05-17-2022 End: 05-17-2022 ambulatory Zacarias Ball Other [employer] Other Start: 05-17-2022 Telephone encounter Zacarias Ball [facility] Start: 05-02-2022 End: 05-02-2022 ambulatory Zacarias Ball Other [employer] Other Start: 05-02-2022 Office outpatient vi sit 25 minutes Zacarias Ball [facility] Start: 03-24-2022 End: 03-24-2022 ambulatory Zacarias Stallings Other [employer] [facility] [employer] Other Start: 03-24-2022 Telephone encounter Zacarias LÓPEZ [facility] Start: 03-22-2022 End: 03-22-2022 ambulatory Zacarias Stallings Other [employer] Other Start: 03-22-2022 Telephone encounter Zacarias LÓPEZ [facility] Start: 02-11-2022 End: 02-12-[address] ZACARIAS STALLINGS Facility:[facility] Start: 02-09-2022 Encounter for genera l adult medical examination without abnormal findings DR ZACARIAS STALLINGS [facility] Start: 02-05-2022 End: 02-06-[address] [...] lic 2000 panel - Serum or Plasma [facility] enter MG Breast - bilateral Screening [facility] Immunizations Immunization Date Immunization Notes Care Provider Fa cility 01-26-2021 COVID-19 Vaccine Moderna - Documentation Purposes Only Zacarias Stallings Other [facility] 12-29-2020 COVID-19 Vaccine Moderna - Documentation Purposes Only Zacarias Stallings Other [facility] 02-20-2015 influenza virus vaccine, split virus (incl. purified surface antigen) Zacarias Stallings Other [employer] Other 02-20-2015 influenza virus vaccine, unspecified formulation [facility] Payers Date Payer Category Payer Unknown [id number] [id number] [id number] 1960 Unknown [id number] 2.16.84 [id number] 1961 Unknown [id number] 2.16.84 [id number] 1961 Unknown [id number] 2.16.84 [id number] 1961 Unknown [id number] 2.16.84 [id number] 1961 Unknown [id number] 2.16.84 [id number] 1961 Unknown [id number] 2.16.84 [id number] 1959 Self-pay 1958 Unknown [id number] 1958 Unknown [id number] [id number] [id number] Social History Date Type Detail Facility Sex Assigned At [facility] [employer] Other Start: 05-08-2023 End: 05-08-2023 Tobacco smoking status NHIS Never smoked tobacco (finding) [facility] Start: 1960 Sex Assigned At Female F [facility] Start: 04-04-2024 End: 05-10-2024 Sex Female (finding) [facility] Clinical Notes 03-22-2022 to 04-04-2024 Note [...] April 9:29am Primary hypertension acute 2024 9:29am [facility] Work Phone: [phone] 370-333910-05-2023 Evaluation note* Encounter Date Diagnosis Assessment Notes Treatment Notes Treatment Clinical Notes Dec, Hyperlipidemia type II (ICD-10 - E78.01) [employer] Other 08-22-2023 Evaluation note* Encounter Date Diagnosis Assessment Notes Treatment Notes Treatment Clinical Notes Oct, Elevated cholesterol (ICD-10 - E78.00) [employer] Other 08-15-2023 Evaluation note* Encounter Date Diagnosis [...] to respiratory infections, vascular disease and cancers. [employer] Other 05-15-2023 Evaluation note* Encounter Date Diagnosis [...] the risk for cerebrovascular and cardiovascular disease. [employer] Other 04-12-2023 Evaluation note* Encounter Date Diagnosis Assessment Notes Treatment Notes Treatment Clinical Notes Jun, Essential hypertension (ICD-10 - I10) [employer] Other 03-27-2023 Evaluation note* Encounter Date Diagnosis [...] restrict salt use and avoid NSAIDs, Sudafed [employer] Other 02-28-2023 Evaluation note* Encounter Date Diagnosis Assessment Notes Treatment Notes Treatment Clinical Notes Apr, Essential hypertension (ICD-10 - I10) [employer] Other 02-13-2023 Evaluation note* Encounter Date Diagnosis [...] improve BP control - stop tobacco use [employer] Other 01-05-2023 Evaluation note* Encounter Date Diagnosis Assessment Notes Treatment Notes Treatment Clinical Notes Mar, Essential hypertension (ICD-10 - I10) [employer] Other 01-03-2023 Evaluation note* Encounter Date Diagnosis Assessment Notes Treatment Notes Treatment Clinical Notes Mar, Essential hypertension (ICD-10 - I10) Mar, Cerebral infarction due to stenosis of right carotid artery (ICD-10 - I63.231) [facility] [employer] Other [facility]No [facility] [employer] Other Evaluation noteNo assessment information available [facility] Work Phone: Evaluation note* Diagnosis Onset Date Resolution Status Cerebral infarction due to s tenosis of right carotid artery acute Hyperlipidemia acute Nicotine dependence acute Primary hypertension acute Knee pain, bilateral noneact piedad Sore throat noneactive [facility] Work Phone: Evaluation note* Diagnosis Onset Date Resolution Status Cerebral atherosclerosis acu te Hyperlipidemia acute Nicotine dependence acute Palpitation acute Primary hypertension acute Wellness examination noneact piedad [facility] Work Phone: Evaluation note* Diagnosis [...] 15 9:16am Wellness examination noneactive 2024 9:16am [facility] Work Phone: History general Narrative [...] 01/08/2019 Hospitalization History see above surgical histo [employer] Other History general Narrative - Reported* Type [...] 02/2015 Hospitalization History see above surgical histo [employer] Other Reason for referral (narrative)No reason for referral [facility] Work Phone: Summary Purpose Family [...] 9 :16am Screening mammogram for breast cancer [facility] 2024 9:16am Wellness examination November 15, 2024 9 :16am Additional Source Comments INFORMATION SOURCE (unrecogn ized section and content) DATE CREATED AUTHOR 09/12/2017 [facility] DATE CREATED AUTHOR AUTHOR'S ORGANIZ [...] BE BASED ON THE PRIMARY CLINICAL RECORDS. [employer] provides no warranty or guarantee of the accuracy or completeness of information in this document.
[2025-01-06 16:17] LABS: Hematocrit 39.5 % (36.0-48.0); Hemoglobin 13.1 g/dL (12.0-16.0); Immature Granulocytes Abs Auto 0.02 10^3/uL (0.00-0.03); Immature Granulocytes Pct Auto 0.3 % (0.0-0.5); Lymphocytes Absolute Auto 2.4 10^3/uL (1.2-3.8); Mean Corpuscular HGB Conc 33.2 g/dL (29.9-35.2); Mean Corpuscular Hemoglobin 30.8 pg (26.7-34.0); Mean Corpuscular Volume 92.7 fL (81.0-99.0); Platelet Count 280 10^3/uL (150-450); Red Blood Count 4.26 10^6/uL (4.20-5.40); White Blood Count 6.5 10^3/uL (4.0-11.0)
[2025-01-08 04:08] LABS: Vitamin B12 473 pg/mL (232-1245)
[2025-01-09 16:09] LABS: Albumin 4.0 g/dL (2.9-4.4); Alpha-1-Globulin 0.3 g/dL (0.0-0.4); Alpha-2-Globulin 1.1 g/dL (0.4-1.0); Free Kappa Lt Chains,S 13.6 mg/L (3.3-19.4); Free Lambda Lt Chains,S 11.3 mg/L (5.7-26.3); Gamma Globulin 0.7 g/dL (0.4-1.8); Immunoglobulin A, Qn, Serum 79 mg/dL (87-352); Kappa/Lambda Ratio,S 1.20 (0.26-1.65)
== END 2025-01-06 15:52 | disposition home or self-care (01) ==
PROVIDERS: PCP Internal Medicine; Visit Provider Internal Medicine
DX: R20.2 Paresthesia of skin (principal); R53.83 Other fatigue; D70.9 Neutropenia, unspecified
CPT/HCPCS: 36415; 82607; 82784; 83521; 84155; 84165; 85025; 86334

== ENCOUNTER 2025-02-10 08:55 | Outpatient (OUT) | payer OTHER, SELFPAY ==
--- NOTE | 2025-02-10 08:56 | CA_ITS ---
Patient Name: DESI FAIR MR#: [id number] : 1960 Exam Date: 02/10/2025 Ordering Doctor: DR CAM GORDON D.O. ECHOCARDIOGRAM REPORT PROCEDURE: CA ECHO DOPPLER COMPLETE INDICATIONS: Swelling of lower extremity, Murmur COMPARISON: None. DESCRIPTION: COMPLETE ECHOCARDIOGRAM Real-time transthoracic echocardiography with 2D, M-mode, spectral and color flow Doppler performed. QUALITY: Technical quality was good. LEFT VENTRICLE: Normal chamber size. Normal left ventricular wall thickness. Global left ventricular systolic function is normal. Estimated left ventricular ejection fraction is 55-60%. LV EF: Normal left ventricular ejection fraction, (>55%). DIASTOLIC: Diastolic function is indeterminate. ATRIAL SEPTUM: LEFT ATRIUM: Normal chamber size. RIGHT ATRIUM: Mild dilatation. RIGHT VENTRICLE: Normal chamber size. Normal right ventricular systolic function. TRICUSPID VALVE: Normal mobility and thickness. No stenosis with trivial regurgitation. Mild pulmonary hypertension. The RSVP measures 40 mmHg. MITRAL VALVE: Normal mobility and thickness. No evidence of mitral valve stenosis. There is no mitral annular calcification. Trivial mitral regurgitation. AORTIC VALVE: Normal trileaflet appearance. No visible sclerosis. Normal leaflet mobility. No evidence of aortic valve stenosis. No aortic regurgitation. AORTIC ROOT: Normal diameter and appearance. The aortic root measures 2.7 cm. The ascending aorta is normal in size measuring 3.2 cm. PULMONIC VALVE: Normal thickness and mobility. No stenosis. Trivial regurgitation. PERICARDIUM: Trivial pericardial effusion. IVC: Collapses with inspiration. The IVC is normal in size measuring 1.7 cm. PLEURA: CONCLUSION: 1. Normal ventricular size and systolic function. Estimated LVEF is 55-60%. 2. No significant valvular dysfunction. 3. Mildly elevated right-sided pressures. RVSP is 40 mmHg. 4. Trivial pericardial effusion. Adult Echocardiography Procedure Report Left Ventricle LVEDD (3.7 - 5.6 cm): 4.88 cm LVESD (2.2 - 4.0 cm): 3.07 cm LVIVS thickness (0.6 - 1.2 cm): 0.93 cm LVPW thickness (0.5 - 1.0 cm): 0.84 cm e': 0.08 m/s E - e': 8.16 LVOT Max Gradient: 4.68 mm[Hg] LVOT Area (cm2): 1.08 m/s Peak Velocity (LVOT): 1.08 m/s Mean Velocity (LVOT): 0.72 m/s LVOT Diameter 2.16 cm Left Ventricular Ejection Fraction: 55-60 % Left Atrium LA Volume Index (2D A2C): 32.71 ml/m2 Left Atrium Systolic Dimension: 3.73 cm Mitral Valve MV E to A Ratio: 0.84 Mitral Valve A-Wave Peak Velocity: 0.81 m/s Mitral Valve E-Wave Peak Velocity: 0.68 m/s Right Ventricle RV Internal Diastolic Dimension: 3.13 cm Aorta AO Root Diam: 2.70 cm Ascending Ao Diam: 3.18 cm Aortic Valve AoV Area (Peak Remington): 2.66 cm2, 2.66 cm2 AoV Area (VTI): 2.80 cm2, 2.80 cm2 Peak Velocity(Antegrade Flow): 1.49 m/s Peak Gradient(Antegrade Flow): 8.91 mm[Hg] Mean Velocity(Antegrade Flow): 0.99 m/s Mean Gradient(Antegrade Flow): 4.57 mm[Hg] Velocity Time Integral: 32.61 cm Tricuspid Valve Peak Velocity (Regurgitant Flow): 2.69 m/s, 2.52 m/s, 3.03 m/s Pulmonic Valve Mean Gradient: 1.30 mm[Hg], 1.21 mm[Hg] Mean Velocity: 0.52 m/s, 0.50 m/s Peak Velocity: 0.74 m/s Peak Gradient: 2.20 mm[Hg], 2.20 mm[Hg] Right Atrium Right Atrium Systolic Pressure: 37.88 ml, 37.88 ml Dictated by: Nick Pappas M.D. on 02/11/2025 at 18:52 Approved by: Nick Pappas M.D. on 02/11/2025 at 18:57
--- OUTSIDE RECORDS SUMMARY | 2025-02-10 08:58 | XMS_ITS | Clinical Summary ---
Author Organization [employer] Address [id number] [place] [address] Care Team Providers Care Unix Developer Name Role Phone Zacarias Stallings Primary Care Provider [phone] Allergies Active AllergyReactionsCriticalityNoted FvfwNwfdomcaRxxlhaz60/08/2018Sulfa (Sulfonamide Antibiotics)12/25/2017Hydrocodone-TgbmirzvvfcfzMfxqp19/09/2019 Hmkmviigtw96/17/2018 Patient stated she was allergic on a phone call 03/05/18 Medications MedicationSigDispense QuantityRefillsLast FilledStart DateEnd DateStatus enoxaparin (LOVENOX) 60 mg/0.6 mL syringe Indications:Carotid artery dissectionInject 0.6 mL (60 mg total) under the skin every 12 (twelve) hours. [facility] mL ctive Additional Information Patient not taking.Reported on 01/11/2022 htqxrmaf-hzwx-UU-calcium &mins (THERAGRAN-M) 9 mg iron-400 mcg tablet Take 1 tablet by mouth in the morning.Active warfarin (COUMADIN) 5 mg tablet Indications:Carotid artery dissectionTake 1-1.5 tablets (5-7.5 mg total) by mouth in the evening. 135 tablet ctive Additional Information Patient not taking.Reported on 09/01/2022 losartan (COZAAR) 25 mg tablet Take 1 tablet (25 mg total) by mouth in the morning and 1 tablet (25 mg total) at noon and 1 tablet(25 mg total) in the evening and 1 tablet (25 mg total) before bedtime.02/25/2022ctive amLODIPine (NORVASC) 5 mg tablet Take 1 tablet (5 mg total) by mouth in the morning and 1 tablet (5 mg total) before bedtime.08/08/2022ctive bisoprolol-hydroCHLOROthiazide (ZIAC) 10-6.25 mg per tablet Take 1 tablet by mouth in the morning.08/08/2022ctive cloNIDine (CATAPRES) 0.1 mg tablet Take 1 tablet (0.1 mg total) by mouth every 12 (twelve) hours.08/01/2022ctive aspirin 81 mg chewable tablet CHEW 1 (ONE) TABLET BY MOUTH DAILY08/03/2022ctive magnesium oxide (MAGOX) 400 mg tablet Take 1 tablet (400 mg total) by mouth in the morning.Active Active Problems ProblemNoted DateDiagnosed DateCarotid artery kbibvraeee79/10/2022Essential usaosofoptkr71/28/2020Visual discomfort of both eyes11/26/2018Migraine variant, hcodmdwdjay88/27/2019Poor nbjxayvbbhufk04/27/2019Occipital neuralgia of left side02/13/2018Gait fxjprzrwvil13/27/2018Refractory migraine with aura1 Migraine without aura, uomtbismnwx10/08/2018Visual whngicogrln01/08/2018Vertigo 12/25/2017Intractable chronic cluster mvajbdoc08/08/2018 Immunizations ImmunizationAdministration DatesNext DueInfluenza (IM) Preservative Free 02/20/2015Zoster Live05/11/2014 Family History Medical HistoryRelationNameCommentsCancerFatherHypertensionFatherStrokeFather CancerMotherHeart diseaseMotherRelationNameStatusCommentsFatherAliveMotherAlive Social History Tobacco UseTypesPacks/DayYears UsedDateSmoking Tobacco: FormerCigarettes0.517 Smokeless Tobacco: Never Tobacco Cessation:Counseling Given: Not Answered Alcohol UseStandard Drinks/WeekCommentsYes0 (1 standard drink = 0.6 oz pure alcohol)occasionalPHQ-2AnswerDate RecordedTotal Gzsnb721hildcareAnswer Date RrtglsydCssaelsewKnknfnw78/10/2019EmploymentAnswerDate RecordedEmployment Vdeehak1808/27/2018Purpose - LifeAnswerDate RecordedPurpose and direction in life Qowysra93/10/2021CommentsUnknownSex and Gender InformationValueDate RecordedSex Assigned at BirthNot on fileLegal ZofPdjxqp85/04/2015 12:00 PM EDT Gender IdentityNot on fileSexual OrientationNot on file Last Filed Vital Signs Vital SignReadingTime TakenCommentsBlood Qyyohjeh483/7706 1:15 PM EDT Oykig376009/01/2022 1:15 PM GBKImryszvdggz56.7 ??C (98.1 ??F)12/30/2021 2:47 PM EDTRespiratory Eqar1682 2:47 PM EDTOxygen Yzfoqgohhf24%12/30/2021 2:47 PM EDTInhaled Oxygen Concentration--Cccnvf73.3 kg (135 lb 1.6 oz)09/01/2022 1:15 PM HWGVbjoxq175 cm (5' 3 )09/01/2022 1:15 PM EDTBody Mass Index23.9309/01/2022 1:15 PM EDT Plan of Treatment Health MaintenanceDue DateLast DoneCommentsTobacco Sjyrzroiy07/27/1974DTaP,Tdap and Td Vaccines (1 - Tdap)1980Pap Smear1982Zoster (Shingles) Vaccine (2 of 3)07/06/201402dult BMI Smogutrmc70/3Depression Fqegxhzgp61/3COVID-19 Vaccine (3 - 2024- season)2024 01/26/2021, 12/29/2020Influenza Qkovnbd81/06/2014RSV ( or age 60+ yrs) (1 - 1-dose 75+ series)2036 Goals GoalPatient Goal TypeAssociated ProblemsRecent ProgressPatient-Stated?Author <enter goal here> Aziza Damian LSW Note: Evaluation of progress towards goal: return home self care with family support Medical Devices Not on file Insurance Advance Directives * Full Code (Latest Code Status on File) Date ActivatedDate EikfdpsvbmrJvxaneoi48/10/2022 3:11 12/30/2021 7:09 PM Care Teams Team MemberRelationshipSpecialtyStart DateEnd Date Zacarias Stallings DO [address] [place] [address] PCP - GeneralInternal Urwovvse01/27/18
--- OUTSIDE RECORDS SUMMARY | 2025-02-10 08:58 | XMS_ITS | Clinical Summary ---
Author Organization [facility] Address [address] [facility] [address] Care Team Providers Care Assistant Administrator Name Role Phone Unavailable Primary Care Provider Unavailabl e Allergies Active AllergyReactionsCriticalityNoted SwhuRnwhvzsnJndyzeoLuaf31/08/2018 Hydrocodone-VyixpduxbmlisMgwpwAtlp64/09/2019Sulfa XlammajeuwkTybg16/08/2018 Gdjbcbddvt61/17/2018 Patient stated she was allergic on a phone call 03/05/18 Medications MedicationSigDispense QuantityRefillsLast FilledStart DateEnd DateStatus rizatriptan (Maxalt) 5 MG tablet Take 5 mg by mouth 1 (one) time if needed for migraine May repeat in 2 hours if unresolved. Do not exceed 30 mg in 24 hours.Active topiramate 50 MG tablet Take by mouthActive verapamil SR (Calan SR) 120 MG ER tablet Take 120 mg by mouth at bedtime Do not crush or chew.Active Immunizations ImmunizationAdministration DatesNext DueInfluenza, seasonal, injectable, preservative free02/20/2015Zoster, live05/11/2014 Family History Medical IeihynsHumytrrwDxhiCodpdqwyPdekwueynirgDvybozw4JnnorxxqsXhetemNalodzos FatherHypertensionFatherMelanomaFatherAsthmaMotherpacemakerMotherurethra cancer GbdzgeTlwhxwtwbbtqXtsimk2WtbzfqkwPpqbSbbgefFnjrqnciValgobj7FuhaxEixxcoWdnfv RexrxqCzlmzWibups5TjhwhXse8Obncn Social History Tobacco UseTypesPacks/DayYears UsedDateSmoking Tobacco: Every DayCigarettes Tobacco Cessation:Ready to Q uit: Not Asked; Counseling Given: Not Answered Alcohol UseStandard Drinks/WeekCommentsYes0 (1 standard drink = 0.6 oz pure alcohol)Every other dayCommentsUnknownSex and Gender InformationValue Date RecordedSex Assigned at BirthNot on fileLegal PayTvbgah80/15/2023 6:49 PM EDTGender IdentityNot on fileSexual OrientationNot on file Last Filed Vital Signs Vital SignReadingTime TakenCommentsBlood Wxlqfmoh047/8210 6:57 PM EDT Xggez464012/19/2018 6:57 PM EDTTemperature--Respiratory Bkxu0881 6:57 PM EDTOxygen Saturation--Inhaled Oxygen Concentration--Aajidj63.4 kg (120 lb) 01/02/2019 12:00 PM EIXWobwkm476 cm (5' 3 )01/02/2019 12:00 PM EDTBody Mass Index21.261 12:00 PM EDT Plan of Treatment Not on file
--- OUTSIDE RECORDS SUMMARY | 2025-02-10 09:01 | XMS_ITS | CCD ---
Author Organization [facility] CliniSynd Care Team Providers Care Statue Maker Name Role Phone CRISELDA, HAI N Unavailable [...] Zacarias Stallings DO Attending Provider Allergies Allergy ClassificationReported Allergen(s)Allergy TypeDate of OnsetReaction(s) Facility (12 sources)Acetaminophen / Aspirin / Caffeine / salicylamideDrug Allergyadvanced [facility] [place] [facility] Other (19 sources)CodeineDrug Sdmnmuq00-31-7877Zlrggbc, Itching, hallucinations [facility] (19 sources)HYDROmorphoneDrug Zlofdfm30-46-0059Plroceq, Unknown Reaction [facility] (12 sources)NITROFURANTOIN, MACROCRYSTALS / Nitrofurantoin, MonohydrateDrug AllergyBradley Hospital CallGrader Other (19 sources)SulfacetamideDrug Dpcdejt12-55-6755zuisHnduzvobiOhiohealth [facility] Hospital (19 sources)zonisamideDrug Xftcdfu42-62-7949Ciuubul, Chest Pain, dyspnea [facility] (1 source)CodeineDrug AllergyThe [facility] (1 source)HYDROmorphoneDrug AllergyThe [facility] (1 source)KetorolacDrug AllergyThe [facility] (1 source)MeperidineDrug AllergyThe [facility] (1 source)Sulfonamides (Antibiotic)Drug allergy (disorder)[facility] (4 sources)Substance with sulfonamide structure and antibacterial mechanism of action (substance)Drug zwckybp27-60-6609AnxsrcfFgpff Coast CallGrader Other (7 sources)AcetaminophenDrug Pjgolbs91-88-4291Egvllpe, dyspnea, redness of face [facility] (7 sources)HYDROcodoneDrug Ugpzfek80-55-4042Yblycvh, dyspnea, redness of face [facility] (7 sources)NitrofurantoinDrug Jfpjhjr01-37-7816Scvehpq ReactionOhiohealth Berger Hospital (7 sources)Sulfonamides (Antibiotic)Allergy to ewqlovgpx08-44-1683Blircxa, rash , dyspneaOhiohealth Berger HospitalComment on above:Onset Date: 01/27/2015 (7 sources)Pain ReliefAllergy to capbpikzx32-35-2520gztdCtrswrhvhBucyrus Community Hospital Medications Current Medications MedicationDrug Class(es)DatesSig (Normalized)Sig (Original)amLODIPine 5 mg oral tablet (20 sources)Dihydropyridine Calcium Channel BlockerStart: 70-83-1145bzht 1 tablet by mouth once dailyAmlodipine 5 mg tablet Active 5 MG PO Daily 90 90 3 January 06, 2025 3:08pm Complies with drug therapyStart: 05-13-2024 End: 86-15-0633vtad 1 tablet by mouth twice dailyAmlodipine 5 mg tablet Discontinued 0 .ROUTE .COMPLEX 180 3 May 13, 2024 7:40pm January 06, 2025 3:12pm TAKE 1 TABLET BY MOUTH TWICE DAILYStart: 05-06-2023 End: 90-57-9754jvba 1 tablet by mouth twice dailyAmlodipine 5 mg tablet Discontinued 5 MG PO Twice daily May 06, 2023 1:00am May 13, 2024 7:40pmtake 1 tablet by mouth twice dailyamLODIPine Besylate 5 MG 1 tablet Orally twice daily Activeaspirin 81 mg chewable tablet (20 sources)Platelet Aggregation Inhibitor, Nonsteroidal Anti-inflammatory Drug Start: 09-97-8018ugpl 1 tablet by mouth once dailyAspirin 81 mg tablet,chewable Active 0 .ROUTE .COMPLEX 90 3 February 15, 2024 9:38am CHEW AND SWALLOW 1 (ONE) TABLET BY MOUTH DAILY Complies with drug therapyStart: 05-06-2023 End: 33-02-8493sjcl 1 tablet by mouth once dailyAspirin 81 mg tablet,chewable Discontinued 81 MG PO Daily May 06, 2023 1:00am January 9:38am take 1 tablet by mouth once dailyAspirin 81 81 MG 1 tablet Orally Once a day Activeatorvastatin 20 mg oral tablet (17 sources)HMG-CoA Reductase InhibitorStart: 05-31-2023 End: 80-57-8465hhjd 1 tablet by mouth in the eveningAtorvastatin 20 mg tablet Active 0 .ROUTE .COMPLEX 30 May 30, 2024 12:49pm TAKE 1 TABLET BY MOUTH IN THE EVENING Complies with drug therapyStart: 85-86-4378mtbi 1 tablet by mouth in the eveningAtorvastatin Active 0 .ROUTE .COMPLEX May 31, 2023 4:29pm TAKE 1 TABLET BY MOUTH IN THE EVENINGStart: 05-31-2023 End: 28-43-4793bmae 1 tablet by mouth once dailyAtorvastatin 20 mg tablet Discontinued 20 MG PO Daily 30 May 31, 2023 12:00am May 31, 2023 4:29pmtake 1 tablet by mouth once daily in the eveningAtorvastatin Calcium 20 MG 1 tablet Orally daily in evening for 30 days Activebaclofen 10 mg oral tablet (20 sources)gamma-Aminobutyric Acid-ergic AgonistStart: 08-18-2023 End: 67-68-7140flbn 1 tablet by mouth once daily as neededBaclofen 10 mg tablet Active 0 .ROUTE .COMPLEX 90 August 27, 2024 8:41pm TAKE 1 TABLET BY MOUTH DA MELITON NEEDED Complies with drug therapyStart: 05-06-2023 End: 54-68-3438vkle 1 tablet by mouth once daily as neededBaclofen 10 mg tablet Discontinued 10 MG PO Daily as needed May 06, 2023 1:00am August 18, 2023 1:19pmStart: 83-24-5724bbqr 1 tablet by mouth every twenty-four hoursBaclofen 10 MG 1 tablet as needed Orally Once a day for 90 days Mar, Active bisoprolol fumarate 10 mg / hydroCHLOROthiazide 6.25 mg oral tablet (20 sources)Thiazide Diuretic, beta-Adrenergic BlockerStart: 11-29-2023 End: 53-31-2042gyqj 1 tablet by mouth once dailyBisoprolol-Hydrochlorothiazide 10-6.25 mg tablet Active 0 .ROUTE .COMPLEX 16 02November 2656:05pm TAKE 1 TABLET BY MOUTH DAILY Complies with drug therapyStart: 04-01-9489jtwy 1 tablet by mouth once dailyBisoprolol-Hydrochlorothiazide 10-6.25 mg tablet Active 0 .ROUTE .COMPLEX November 29, 2023 6:32am TAKE 1 TABLET BY MOUTH ONCE DAILY Start: 05-06-2023 End: 92-50-2138cnvf 1 tablet by mouth once dailyBisoprolol-Hydrochlorothiazide 10-6.25 mg tablet Discontinued 1 TAB PO Daily May 06, 2023 1:00am November 29, 2023 7:32amStart: 75-70-0709hgcp 1 tablet by mouth every twenty- four hoursBisoprolol-hydroCHLOROthiazide 5-6.25 MG 1 tablet Orally Once a day for 30 day(s) Apr, Activetake 1 tablet by mouth once dailyBisoprolol- hydroCHLOROthiazide 10-6.25 MG TAKE 1 TABLET BY MOUTH ONCE DAILY for 30 Active cloNIDine hydrochloride 0.2 mg oral tablet (20 sources)Central alpha-2 Adrenergic AgonistStart: 76-87-0787jlsw 1 tablet by mouth every twelve hoursClonidine Hcl 0.2 mg tablet Active 0.2 MG PO Every 12 hours 180 90 January 06, 2025 3:07pm Complies with drug therapyStart: 93-64-3028drbs 1 tablet by mouth every twelve hoursClonidine Hcl Active 0 .ROUTE .COMPLEX 180 September 28, 2023 4:24pm TAKE 1 TABLET BY MOUTH EVERY 12 HOURSStart: 09-27-2023 End: 85-48-8405nuyl 1 tablet by mouth every twelve hoursClonidine Hcl 0.1 mg tablet Discontinued 0 .ROUTE .COMPLEX 180 September 26, 2024 2:15pm January 06, 2025 3:12pm TAKE 1 TABLET BY MOUTH EVERY 12 HOURSStart: 09-27-2023 End: 43-30-7632vnid 1 tablet by mouth every twelve hoursClonidine Hcl Discontinued 0 .ROUTE .COMPLEX 180 September 27, 2023 6:17pm September 28, 2023 4:24pm TAKE1 TABLET BY MOUTH EVERY 12 HOURSStart: 05-06-2023 End: 68-28-9456afzf 1 tablet by mouth every twelve hoursClonidine Hcl 0.1 mg tablet Discontinued 0.1 MG PO Every 12 hours May 06, 2023 1:00am September 262023 6:17pmStart: 79-21-7065qtcy 1 tablet by mouth every twelve hours cloNIDine HCl 0.1 MG 1 tablet Orally every 12 hours Jun, Activelosartan potassium 50 mg oral tablet (20 sources)Angiotensin 2 Receptor BlockerStart: 37-53-9072rtxu 1 tablet by mouth twice dailyLosartan 50 mg tablet Active 0 .ROUTE .COMPLEX 60 December 03, 2023 5:47pm TAKE 1 TABLET BY MOUTH TWICE DAILY Complies with drug therapy Start: 05-06-2023 End: 22-60-4135gver 1 tablet by mouth twice dailyLosartan 50 mg tablet Discontinued 50 MG PO Twice daily May 06, 2023 1:00am December 02, 5:47pmtake 1 tablet by mouth twice dailyLosartan Potassium 50 MG 1 tablet Orally twice daily for 30 days Activetake 1 tablet by mouth twice dailyLosartan Potassium 25 MG 1 tablet Orally twice daily Activemagnesium oxide 400 mg oral tablet (19 sources)Start: 89-73-1121sbvq 1 tablet by mouth once dailyMagnesium Oxide 400 mg (241.3 mg magnesium) tablet Active 400 MG PO Daily May 06, 2023 1:00am Complies with drug therapyMagnesium Oxide 400 MG 1 Orally Once a day for 90 days ActivePrepopik 10-3.5-12 MG-GM-GM (12 sources)Start: 49-68-1035HAJSomutgsz (12 sources)Serotonin-1b and Serotonin-1d Receptor AgonistImitrex Activewarfarin sodium 5 mg oral tablet (5 sources)Vitamin K AntagonistWarfarin 5mg 5 mg as directed orally Active Completed/Discontinued Medications MedicationDrug Class(es)DatesSig (Normalized)Sig (Original)azithromycin 250 mg oral tablet (3 sources)Macrolide AntimicrobialStart: 04-04-2024 End: 96-85-4130Jlotsfifwrgm 250 mg tablet Discontinued 250 MG PO .COMPLEX 6 5 0 April 04, 2024 1:00am 2024 10:36am 2 tabs on first day followed by 1 tab on days 2-5diphenhydrAMINE (12 sources)Histamine-1 Receptor AntagonistStart: 34-71-6840Ohsyimhj up to 50 mg Mar, 1 mLKetorolac (12 sources)Nonsteroidal Anti-inflammatory Drug, Cyclooxygenase InhibitorStart: 76-95-7461Lkvnwuq per 15 mg Mar, 2 mLrizatriptan 5 mg oral tablet (7 sources)Serotonin-1b and Serotonin-1d Receptor AgonistStart: 01-03-2019 End: 17-26-4094Yxnjepkkost 5 mg tablet Discontinued 5 MG PO As Directed as needed for Migraine Headache January 03, 2019 12:00am May 06, 2023 1:55pmtopiramate 50 mg oral tablet (7 sources)Start: 01-03-2019 End: 23-05-6209Ebyrhgyzdn 50 mg tablet Discontinued 75 MG PO Twice daily January 03, 2019 12:00am April 1:55pm migrainesStart: 01-03-2019 End: 81-14-8280oqwo 75 mg by mouth twice dailyTopiramate Discontinued 75 MG PO Twice daily January 03, 2019 12:00am May 06, 2023 1:55pmverapamil hydrochloride 120 mg extended release oral tablet (7 sources)Calcium Channel BlockerStart: 01-03-2019 End: 74-05-5075evha 1 tablet by mouth once daily at bedtimeVerapamil 120 mg tablet extended release Discontinued 120 MG PO Daily at bedtime January 03, 201912:00am May 06, 2023 1:55pm migraines Problems Active Problems Problem ClassificationProblemDateDocumented DateEpisodic/ChronicAcute bronchitis (1 source)Acute bronchitis due to other specified organisms; Translations: [Acute bronchitis]25-94-1353FlocyhdeTtzgw cerebrovascular disease (20 sources)Cerebral infarction due to unspecified occlusion or stenosis of right carotid arteries; Translations: [Cerebral infarction due to stenosis of carotid artery]ChronicAortic; peripheral; and visceral artery aneurysms (14 sources)Dissection of right carotid artery; Translations: [Dissection of carotid artery]Onset: 00-55-3287LiuniznJrnjgvn dysrhythmias (9 sources)Palpitations; Translations: [Palpitations]68-17-7638EkryzkcyDoobhwbb of white blood cells (2 sources)Neutropenia; Translations: [Neutropenia, unspecified]01-06-2025 ChronicDisorders of lipid metabolism (20 sources)Pure hypercholesterolemia; Translations: [Familial hypercholesterolemia]ChronicEssential hypertension (20 sources)Essential hypertension; Translations: [Essential (primary) hypertension]Onset: 07-10-1706IkewtvcVsmvdclowhzho symptoms and ill-defined conditions (7 sources)Frequency of micturition; Translations: [Frequency of urination] EpisodicHeadache; including migraine (20 sources)Migraine with aura; Translations: [Migraine with aura, not intractable, without status migrainosus]ChronicHeadache; including migraine (4 sources)Headache; including migraine; Translations: [HEADACHE UNSPECIFIED] Onset: 55-46-8656Fmrkwad and fatigue (1 source)Fatigue; Translations: [Other fatigue]15-21-1426QlpmdyqdTadscikozcdvj mental health disorders (7 sources)Occipital headache; Translations: [Unilateral occipital headache] ChronicNonmalignant breast conditions (7 sources)Inflammatory disorder of breast; Translations: [Mastitis without abscess]EpisodicOsteoporosis (1 source)Age-related osteoporosis without current pathological fracture; Translations: [AGE-REL OSTEOPOR W/OCURR PATH FX]Onset: 36-62-5528QpwxrgqNdrnj aftercare (1 source)penitentiary (current) use of aspirin; Translations: [SENIOR CARE CURRENT USE OF ASPIRIN]Onset: 54-57-4514RlfmxbasXyjpc and ill-defined cerebrovascular disease (7 sources)Cerebral atherosclerosis; Translations: [Cerebral atherosclerosis] 03-73-4503IpeecmaJkdat and ill-defined cerebrovascular disease (2 sources)Cerebral atherosclerosis; Translations: [Cerebral atherosclerosis] 47-72-3581SzkufarDfplw circulatory disease (7 sources)Elevated blood-pressure reading without diagnosis of hypertension; Translations: [Elevated blood-pressure reading, without diagnosis of hypertension]EpisodicOther circulatory disease (12 sources)Cardiovascular symptoms; Translations: [Other specified symptoms and signs involving the circulatory and respiratory systems]EpisodicOther circulatory disease (1 source)Personal history of transient ischemic attack (TIA), and cerebral infarction without residual deficits; Translations: [PERS HX TIA AND CI NO RESID DEFICIT]Onset: 09-49-2209KcmdkvcgPvwkb connective tissue disease (2 sources)Swelling of lower limb; Translations: [Other specified soft tissue disorders]62-37-3636IaptrzgpBnifk endocrine disorders (12 sources)Primary hyperparathyroidism; Translations: [Primary hyperparathyroidism]ChronicOther eye disorders (7 sources)Subconjunctival hemorrhage of left eye; Translations: [Conjunctival hemorrhage, left eye]EpisodicOther gastrointestinal disorders (12 sources)Irritable bowel syndrome characterized by constipation; Translations: [Irritable bowel syndrome with constipation]ChronicOther lower respiratory disease (7 sources)Cough; Translations: [Cough]EpisodicOther nervous system disorders (1 source)Paresthesia; Translations: [Paresthesia of skin]09-11-5199Jmkiocin Other non-traumatic joint disorders (1 source)Pain in right knee; Translations: [Pain in joint, lower leg]05-08-2023 EpisodicOther screening for suspected conditions (not mental disorders or infectious disease) (12 sources)Encounter for screening mammogram for malignant neoplasm of breast; Translations: [Patient encounter status]Onset: 48-04-7252DwtcldctIapdo upper respiratory infections (1 source)Acute pharyngitis, unspecified; Translations: [Acute pharyngitis] 39-21-7393UcrekyvsEyipsd media and related conditions (7 sources)Other specified disorders of Eustachian tube, right ear; Translations: [Dysfunction of right eustachian tube]EpisodicResidual codes; unclassified (13 sources)Asymptomatic menopausal state; Translations: [Menopause]Onset: 07-47-3488UomhscdqQcguefnxw and history of mental health and substance abuse codes (1 source)Personal history of nicotine dependence; Translations: [PERSONAL HISTORY OF NICOTINE DEPEND]Onset: 61-11-4633KthjmcejWfaoxkqhqem; intervertebral disc disorders; other back problems (20 sources)Cervical spondylosis without myelopathy; Translations: [Other spondylosis with radiculopathy, cervical region]ChronicSubstance-related disorders (20 sources)Tobacco user; Translations: [Nicotine dependence, cigarettes, uncomplicated]Onset: 58-55-3080HqiirwyRfqidms on above:LDCT: no suspicious nodules: 11/2024Unclassified (2 sources)Unknown / UNK(Unknown)Onset: 43-74-8419Uhpyfpbqdlce (4 sources)CONTACT W/AND (SUSP) EXPOS COVID-19; Translations: [CONTACT W/AND (SUSP) EXPOS COVID-19]Onset: 87-53-6917Cjmisvnnvsuc (3 sources)COUGH, UNSPECIFIED; Translations: [COUGH, UNSPECIFIED]Onset: 09-15-2021 Past or Other Problems Problem ClassificationProblemDateDocumented DateEpisodic/ChronicLymphadenitis (8 sources)Lymphadenopathy; Translations: [Localized enlarged lymph nodes]Onset: 96-60-4509OzlpuerpBnzeb bone disease and musculoskeletal deformities (1 source)Other specified disorders of bone density and structure, other site; Translations: [OTH D/O BONE DEN STRUCT OTH SITE]Onset: 82-73-7094Tecmligs Residual codes; unclassified (1 source)Family history of malignant neoplasm of bladder; Translations: [FAM HX MALIGNANT NEOPLASM BLADDER]Onset: 38-87-0851ArkeftocVzfcjyfiovb; intervertebral disc disorders; other back problems (4 sources)Occipital neuralgia; Translations: [OCCIPITAL NEURALGIA]Onset: 74-27-5979TergsvllCwnxashxyacl (1 source)COUGH, UNSPECIFIED; Translations: [COUGH, UNSPECIFIED]Onset: 66-96-9853Oswbpwslccnp (1 source)CONTACT W/AND (SUSP) EXPOS COVID-19; Translations: [CONTACT W/AND (SUSP) EXPOS COVID-19]Onset: 89-90-7471Gknlv infection (7 sources)Disease caused by 2019-nCoV; Translations: [COVID-19] Results Test NameValueInterpretationReference RangeFacilityBasophils Auto (Bld) [#/Vol] Ordered By: Zacarias Stallings on 90-94-3193Tpplykshx (Bld) [#/Vol]0.1 10 3/uL0.0-0.1 [facility] HospitalBasophils/100 WBC Auto (Bld)Ordered By: Zacarias Stallings on 78-27-6942Aoyubrmhu/100 WBC (Bld)1.6 %0.2-2.0[facility] HospitalCholesterol in LDL Calc [Mass/Vol]Ordered By: Zacarias Stallings on 63-67-1680Xjjxdoblzlv in LDL [Mass/Vol]39.0 mg/dLOhiohealth Berger HospitalComment on above:<100 mg/dl FPCHAXT453-650 mg/dl NEAR OR ABOVE NZPISSL394- 159 mg/dl BORDERLINE ASGY372-911 mg/dl HIGH>190 mg/dl VERY HIGHCholesterol in VLDL Calc [Mass/Vol]Ordered By: Zacarias Stallings on 09-69-5757Ihdlmifjukt in VLDL [Mass/Vol]20.8 mg/dLOhiohealth Berger HospitalEosinophils/100 WBC Auto (Bld)Ordered By: Zacarias Stallings on 53-05-8251Rbittcjkbpa/100 WBC (Bld)3.6 % 0.9-7.0[facility] HospitalErythrocyte distribution width Auto (RBC) [Ratio]Ordered By: Zacarias Stallings on 57-39-6298Vgufulmmytq distribution width (RBC) [Ratio]12.3 %11.0-15.0[facility] HospitalGlobulin Calc (S) [Mass/Vol]Ordered By: Zacarias Stallings on 59-77-0181Kqjkkcik (S) [Mass/Vol]3.4 g/dLOhiohealth Berger HospitalGlomerular filtration rate (GFR) estimation in non- AmericanOrdered By: Zacarias Stallings on 12-06-2024 GFR/1.73 sq M.predicted among non-blacks MDRD (S/P/Bld) [Vol rate/Area] mL/min/{1.73_m2}>=60 mL/min/1.73m 2FThe University of Toledo Medical CenterHematocrit Auto (Bld) [Volume fraction]Ordered By: Zacarias Stallings on 58-06-6467Bpzmvjhjyy (Bld) [Volume fraction]38.5 %36.0-48.0[facility] Hemoglobin [Mass/volume] in BloodOrdered By: Zacarias Stallings on 12-06-2024 Hemoglobin (Bld) [Mass/Vol]13.3 g/dL12.0-16.0[facility] Laboratory - Chemistry and Chemistry - challengeOrdered By: Zacarias Stallings on 36-76-5152Cfcimck [Mass/Vol]3.9 g/dL3.4-5.0[facility] HospitalALP [Catalytic activity/Vol]56 U/Q62-251RfwlmmgfhOhiohealth Berger HospitalALT [Catalytic activity/Vol]35 U/Y50-90ObsvetjvaOhiohealth Berger HospitalAST [Catalytic activity/Vol]16 U/B51-18JireakocpOhiohealth Berger HospitalBilirubin [Mass/Vol]0.7 mg/dL0.2-1.0[facility] HospitalCalcium [Mass/Vol]9.0 mg/dL8.5-10.1FThe University of Toledo Medical CenterChloride [Moles/Vol]105 mmol/L 98-107[facility] HospitalCholesterol [Mass/Vol]148 mg/dL<=200 [facility] HospitalCholesterol in HDL [Mass/Vol]89 mg/yPKwjl63-67 [facility] HospitalComment on above:> or =60 mg/dl - LOW CARDIOVASCULAR RISK<40 mg/dl - HIGH CARDIOVASCULAR RISKCO2 [Moles/Vol]30.0 mmol/L21.0-32.0[facility] HospitalCreatinine [Mass/Vol]0.76 mg/dL 0.55-1.02[facility] HospitalGFR/1.73 sq M.predicted MDRD (S/P/Bld) [Vol rate/Area]mL/min/{1.73_m2}>=60 mL/min/1.73m 2FThe University of Toledo Medical CenterGlucose [Mass/Vol]101 mg/lU45-658QdlypirudOhiohealth Berger Hospital Potassium [Moles/Vol]4.2 mmol/L3.5-5.1FThe University of Toledo Medical CenterProtein [Mass/Vol]7.3 g/dL6.4-8.2FDayton Osteopathic Hospitalodium [Moles/Vol]144 mmol/Z243-237BxdwogangOhiohealth Berger HospitalTriglyceride [Mass/Vol]104 mg/dL <=150[facility] HospitalTSH Qn1.205 m[IU]/L0.358-3.740[facility] HospitalUrea nitrogen [Mass/Vol]17.0 mg/dL7.0-18.0[facility] HospitalUrea nitrogen/Creatinine [Mass ratio]22.4 mg/mgOhiohealth Berger HospitalLaboratory - Hematology and Cell countsOrdered By: Zacarias Stallings on 04-86-0121Kjiowgli granulocytes/100 WBC (Bld)0.3 %0.0-0.5 [facility] HospitalLeukocytes [#/volume] corrected for nucleated erythrocytes in Blood by Automated counOrdered By: Zacarias Stallings on 12-06-2024 WBC corrected for nucl RBC Auto (Bld) [#/Vol]3.9 10 3/uLLow4.0-11.0[facility] HospitalLymphocytes Auto (Bld) [#/Vol]Ordered By: Zacarias Stallings on 15-57-6433Rwwmoqxhwro (Bld) [#/Vol]1.8 10 3/uL1.2-3.8[facility] HospitalLymphocytes/100 WBC Auto (Bld)Ordered By: Zacarias Stallings on 87-39-8210Drhazqqvily/100 WBC (Bld)47.7 %20.5-60.0[facility] HospitalMCH Auto (RBC) [Entitic mass]Ordered By: Zacarias Stallings on 01-39-1569XIK (RBC) [Entitic mass]31.6 pg26.7-34.0[facility] HospitalMCHC Auto (RBC) [Mass/Vol]Ordered By: Zacarias Stallings on 50-94-0043CWFN (RBC) [Mass/Vol]34.5 g/dL29.9-35.2FThe University of Toledo Medical CenterMCV Auto (RBC) [Entitic vol] Ordered By: Zacarias Stallings on 45-98-4519KOQ (RBC) [Entitic vol]91.4 fL81.0-99.0 [facility] HospitalMonocytes Auto (Bld) [#/Vol]Ordered By: Zacarias Stallings on 36-56-0832Hwoxbxakg (Bld) [#/Vol]0.5 10 3/uL0.3-0.8[facility] HospitalMonocytes/100 WBC Auto (Bld)Ordered By: Zacarias Stallings on 37-27-3003Nwcafkjmf/100 WBC (Bld)12.4 %High1.7-12.0[facility] HospitalNeutrophils Auto (Bld) [#/Vol]Ordered By: Zacarias Stallings on 12-06-2024 Neutrophils (Bld) [#/Vol]1.3 10 3/uLLow1.4-6.5FThe University of Toledo Medical Center Neutrophils/100 WBC Auto (Bld)Ordered By: Zacarias Stallings on 12-06-2024 Neutrophils/100 WBC (Bld)34.4 %Low43.0-75.0[facility] HospitalNo Panel InformationOrdered By: Zacarias Stallings on 66-95-5627Jhybiyibtjz # (Auto)0.1 10 3/uL0.0-0.7FThe University of Toledo Medical CenterImmature Granulocyte # (Auto)0.01 10 3/uL0.00-0.03[facility] HospitalPlatelet mean volume Auto (Bld) [Entitic vol]Ordered By: Zacarias Stallings on 93-92-4080Qiezfsdx mean volume (Bld) [Entitic vol]9.4 fLLow9.5-13.5FThe University of Toledo Medical CenterPlatelets Auto (Bld) [#/Vol]Ordered By: Zacarias Stallings on 57-33-6665Nyljnibnn (Bld) [#/Vol] 289 10 3/cA812-531KlcfqlothOhiohealth Berger HospitalRBC Auto (Bld) [#/Vol]Ordered By: Zacarias Stallings on 17-30-4347MLR (Bld) [#/Vol]4.21 10 6/uL4.20-5.40[facility] Hospitalerum or plasma albumin/globulin mass ratioOrdered By: Zacarias Stallings on 02-99-2350Ygnotew/Globulin [Mass ratio]1.1 {ratio}[facility] Hospitalerum or plasma anion gap determinationOrdered By: Zacarias Stallings on 15-08-8074Ekeqy gap [Moles/Vol]13.2 mmol/LFDayton Osteopathic Hospitalerum or plasma total cholesterol/high density lipoprotein (HDL) cholesterol mass ratOrdered By: Zacarias Stallings on 12-06-2024 Cholesterol.total/Cholesterol in HDL [Mass ratio]1.7 {ratio}[facility] HospitalComment on above:3.3 - 4.4 LOW RISK4.4 - 7.1 AVERAGE RISK7.1 - 11.0 MODERATE RISK>11.0 HIGH RISKInfluenza virus B Ag [Presence] in Upper respiratory specimen by Rapid immunoassayon 67-77-6214IIDHU Ag IA.rapid Ql (Nph) Influenza virus B Ag [Presence] in Upper respiratory specimen by Rapid immunoassayOhiohealth Berger HospitalNo Panel Informationon 04-04-2024 Influenza Type A (Rapid)NegativeOhiohealth Berger HospitalPO SARS CoV-2 AntigenNegativeOhiohealth Berger HospitalCB AUTO DIFFon [id number] # 0.1 103/ulNormal0.0-0.1[facility] HospitalComment on above:Performed By: #### CBC ####[facility] [address] [address]Dr. Yilan ChangBasophils/100 WBC (Bld)1.0 %Normal0.2-2.0[facility] HospitalComment on above:Performed By: #### CBC ####[facility] [address] [address]Dr.Yilan ChangEO #0.2 103/ulNormal0.0-0.7[facility] HospitalComment on above:Performed By: #### CBC ####[facility] [address] [place], [place] [address]Dr.Yilan ChangEosinophils/100 WBC (Bld)3.5 %Normal0.9-7.0[facility] HospitalComment on above:Performed By: #### CBC ####[facility] [address] [place], [place] [address]Dr.Argentinaanalilia ChangErythrocyte distribution width (RBC) [Ratio]13.2 %Normal 11.0-15.0[facility] HospitalComment on above:Performed By: #### CBC ####[facility] [address] [place], [place] [address]Dr. Argentinaanalilia ChangHematocrit (Bld) [Volume fraction]41.5 %Hcgukx49.0-48.0The [facility] HospitalComment on above:Performed By: #### CBC ####[facility] [address] [place], [place] [address]Dr.Brady ChangHemoglobin (Bld) [Mass/Vol]14.1 g/dHAhmgsz14.0-16.0[facility] HospitalComment on above: Performed By: #### CBC ####[facility] Oecqncbqfe[address] [place], [place] [address]Dr.Brady ChangIG #0.01 10e3/ulNormal0.00-0.03The [facility] HospitalComment on above:Performed By: #### CBC ####[facility] Yeqqwsosfp[address] [place], [place] [address]Dr.Brady ChangIG %0.2 %Normal 0.0-0.5The [facility] HospitalComment on above:Performed By: #### CBC ####[facility] Prlmtgjquu[address] [place], [place] [address]Dr.Brady ChangLYMPH #2.5 103/ulNormal1.2-3.8The [facility] HospitalComment on above:Performed By: #### CBC ####[facility] Hqjkebiubx174[address] [place], [place] [address]Dr.Brady ChangLymphocytes/100 WBC (Bld)48.3 %Ytkfft63.5-60.0The [facility] HospitalComment on above:Performed By: #### CBC ####[facility] Tqferukuzf20[address] [place], [place] [address]Dr.Brady PérezMANUAL DIFF REQ NONormalThe [facility] HospitalComment on above:Performed By: #### CBC ####[facility] [address] [address]Dr. Brady BetoH (RBC) [Entitic mass]30.8 hkMyyrbp41.7-34.0The [facility] Comment on above:Performed By: #### CBC ####[facility] Sdqcufyuka[address] [place], [place] [address]Dr.Brady PérezHC (RBC) [Mass/Vol]34.0 g/dL Bvomxi60.9-35.2The [facility] HospitalComment on above:Performed By: #### CBC ####[facility] Gxxjrdfcex6[address] [place], [place] [address]Dr. Brady PérezV (RBC) [Entitic vol]90.6 jVTxxfzi57.0-99.0The [facility] Comment on above:Performed By: #### CBC ####[facility] Jpkjxirits47[address] [place], [place] [address]Dr.Brady PérezMONO #0.6 103/ulNormal0.3-0.8 The [facility] HospitalComment on above:Performed By: #### CBC ####[facility] Fxvvrbunkg59[address] [place], [place] [address]DrMaria Pérez Monocytes/100 WBC (Bld)12.2 %Critically high1.7-12.0The [facility] HospitalComment on above:Performed By: #### CBC ####[facility] Bihkyrntsw[address] [place], [place] [address]DrMaria PérezNEUT #1.8 103/ulNormal1.4-6.5The [facility] HospitalComment on above:Performed By: #### CBC ####[facility] Rfkdjscnqq39[address] [place], [place] [address]DrMaria PérezNeutrophils/100 WBC (Bld)34.8 %Critically low43.0-75.0The [facility] HospitalComment on above: Performed By: #### CBC ####[facility] Foyeqfpmsc17[address] [place], [place] [address]DrMaria PérezPlatelet mean volume (Bld) [Entitic vol] 9.4 fLCritically low9.5-13.5The [facility] HospitalComment on above:Performed By: #### CBC ####[facility] [address]sw[address] [address]Dr.Brady PérezPLT296 103/bwJuehbh569-611Yys [facility] HospitalComment on above:Performed By: #### CBC ####[facility] [address]dwmn[address] [address]Dr.Brady PérezRBC4.58 106/ulNormal4.20-5.40The [facility] HospitalComment on above:Performed By: #### CBC ####[facility] [address]ertrx[address] [address]DrMaria PérezWBC5.2 103/ul Normal4.0-11.0The [facility] HospitalComment on above:Performed By: #### CBC ####[facility] [address] [address]DrLola PérezPROF CHEM 8 (BAS METB)on 57-99-1374Jrbsf gap [Moles/Vol]14.0 mmol/L NormalThe [facility] HospitalComment on above:Performed By: #### BMP #### [facility] [address] [address] [address] Brady PérezCalcium [Mass/Vol]9.2 mg/dLNormal8.5-10.1The [facility] Comment on above:Performed By: #### BMP #### [facility] [address] [address] [address] Brady PérezChloride [Moles/Vol]104 mmol/EMnvaoj66-459Nuh [facility] Comment on above:Performed By: #### BMP #### [facility] [address] [address] [address] Brady PérezCO2 [Moles/Vol]28.1 mmol/CTdzxhl96.0-32.0The [facility] Comment on above:Performed By: #### BMP #### [facility] [address] [address] [address] Brady PérezCreatinine [Mass/Vol]1.02 mg/dLNormal0.55-1.02The [facility] HospitalComment on above:Performed By: #### BMP #### [facility] [address] [place] [address] Dr. Brady PatiñoGFR-AF MAURITANIAN>60Normal>=60The [facility] HospitalComment on above:Performed By: #### BMP #### [facility] [address] [address] [address] Brady PatiñoGFR-NON AF ZFYTLTGC84 mL/min/1.00o2Xunvneybqz low>=60The [facility] HospitalComment on above:Performed By: #### BMP #### [facility] [address] [place] [address] Dr. Brady PérezGlucose [Mass/Vol]102 mg/jSGjrqbh36-509Fkt [facility] Comment on above:Performed By: #### BMP #### [facility] [address] [place] [address] Dr. Brady PérezPotassium [Moles/Vol]4.1 mmol/LNormal3.5-5.1The [facility] Comment on above:Performed By: #### BMP #### [facility] [address] [place] [address] Dr. Brady PérezSodium [Moles/Vol]142 mmol/DVlzeii698-260Oti [facility] Comment on above:Performed By: #### BMP #### [facility] [address] [place] [address] Dr. Brady PérezUrea nitrogen [Mass/Vol]13.0 mg/dLNormal7.0-18.0The [facility] HospitalComment on above:Performed By: #### BMP #### [facility] [address] [place] [address] Dr. Brady Mckeon nitrogen/Creatinine [Mass ratio]12.7 mg/mgNormalThe [facility] HospitalComment on above:Performed By: #### BMP #### [facility] [address] [place] [address] Dr. Brady PérezMG MAMM SCREEN 3D CHAD CADon [id number] MAMM SCREEN 3D CHAD CAD Patient: DESI KNOTT Exam Date: 02/11/2022 : 1960 Gender:F Ordering : DR ZACARIAS STALLINGS D.O. Admission #: [id number] Family : Order #: [id number] CLICK HERE TO VIEW EXAM RADIOLOGY REPORT [...] bladder cancer at age 74. LOCATION: [facility] BREAST COMPOSITION: Heterogeneously dense,which may obscure [...] LUMP SHOULD BE BIOPSIED. Dictated by: Nick Kaspre M.D. on 02/14/2022 at 14:47 Approved by: Nick Kasper M.D. on 02/14/2022 at 14:51[facility] HospitalXR DEXA BONE DENSITYon [id number] DEXA BONE DENSITYDEXA Bone Density Study CLINICAL: Evaluate bone mineral density. Postmenopausal COMPARISON: None FINDINGS: The bone density study was assessed by dual-energy x-ray absorptiometry with the Ripl scanner. The test results are expressed in [...] Electronically authenticated by: MARGO NUNN Date: 2022-02-11 09:26[facility] AUTO DIFFon [id number] #0.1 103/ulNormal0.0-0.1[place] HospitalComment on above:Performed By: #### CBC #### [facility] [address] [address] [address] Brady PérezBasophils/100 WBC (Bld)1.0 %Normal0.2-2.0The [facility] Comment on above:Performed By: #### CBC #### [facility] [address] [place] [address] Dr. Brady Wiley #0.2 103/ulNormal0.0-0.7The [facility] HospitalComment on above: Performed By: #### CBC #### [facility] [address] [place] [address] Dr. Brady Patiñoosinophils/100 WBC (Bld)2.6 %Normal0.9-7.0The [facility] Comment on above:Performed By: #### CBC #### [facility] [address] [place] [address] Dr. Brady Patiñorythrocyte distribution width (RBC) [Ratio]13.7 %Hhjxvg60.0-15.0 The [facility] HospitalComment on above:Performed By: #### CBC #### [facility] [address] [place] [address] Dr. Brady PérezHematocrit (Bld) [Volume fraction]43.6 %Brmljr10.0-48.0The [facility] HospitalComment on above:Performed By: #### CBC #### [facility] [address] [place] [address] Dr. Brady PérezHemoglobin (Bld) [Mass/Vol]14.7 g/tOLijfuo47.0-16.0The [facility] HospitalComment on above:Performed By: #### CBC #### [facility] [address] [place] [address] Dr. Brady Muse #0.01 10e3/ulNormal0.00-0.03The [facility] HospitalComment on above:Performed By: #### CBC #### [facility] [address] [place] [address] Dr. Brady Muse %0.2 %Normal0.0-0.5The [facility] HospitalComment on above: Performed By: #### CBC #### [facility] [address] [address] [address] Brady Tong #2.6 103/ulNormal1.2-3.8The [facility] HospitalComment on above:Performed By: #### CBC #### [facility] [address] [place] [address] Dr. Brady Saldanahocytes/100 WBC (Bld)43.6 %Dmoxyh27.5-60.0The [facility] HospitalComment on above:Performed By: #### CBC #### [facility] [address] [place] [address] Dr. Brady Sarkar DIFF REQNONormalThe [facility] HospitalComment on above: Performed By: #### CBC #### [facility] [address] [place] [address] Dr. Brady Jacob (RBC) [Entitic mass]30.7 eiHahrmo55.7-34.0The [facility] HospitalComment on above:Performed By: #### CBC #### [facility] [address] [place] [address] Dr. Brady Alvarez (RBC) [Mass/Vol]33.7 g/tXYkfmdz60.9-35.2The [facility] on above:Performed By: #### CBC #### [facility] [address] [place] [address] Dr. Brady Alvarez (RBC) [Entitic vol]91.0 zLVcxydv37.0-99.0The [facility] HospitalComment on above:Performed By: #### CBC #### [facility] [address] [place] [address] Dr. Brady Steve #0.7 103/ulNormal0.3-0.8The [facility] on above:Performed By: #### CBC #### [facility] [address] [place] [address] Dr. Brady Manriquezocytes/100 WBC (Bld)11.6 %Normal1.7-12.0The [facility] Comment on above:Performed By: #### CBC #### [facility] [address] [place] [address] Dr. Brady Rolon #2.5 103/ulNormal1.4-6.5The [facility] HospitalComment on above:Performed By: #### CBC #### [facility] [address] [place] [address] Dr. Brady Mirelesutrophils/100 WBC (Bld)41.0 %Critically low43.0-75.0The [facility] HospitalComment on above:Performed By: #### CBC #### [facility] [address] [place] [address] Dr. Brady Mayberrylet mean volume (Bld) [Entitic vol]9.3 fLCritically low 9.5-13.5The [facility] HospitalComment on above:Performed By: #### CBC #### [facility] [address] [place] [address] Dr. Brady PérezPLT317 103/hdCukifo872-027Aam [facility] HospitalComment on above: Performed By: #### CBC #### [facility] [address] [place] [address] Dr. Brady PérezRBC4.79 106/ulNormal4.20-5.40The [facility] HospitalComment on above:Performed By: #### CBC #### [facility] [address] [place] [address] Dr. Brady PérezWBC6.1 103/ulNormal4.0-11.0The [facility] HospitalComment on above: Performed By: #### CBC #### [facility] [address] [place] [address] Dr. Brady PérezLIPID PROFILEon [id number]-HDL RATIO NORMSEE [facility] HospitalComment on above:Result Comment: 3.3 - 4.4 LOW RISK 4.4 - 7.1 AVERAGE RISK 7.1 - 11.0 MODERATE RISK >11.0 HIGH RISKPerformed By: #### LIPID, MG, CMP, TSH ####[facility] [address] [address]Dr. Yilan ChangCholesterol [Mass/Vol]222 mg/dLCritically high<=200The [facility] on above:Performed By: #### LIPID, MG, CMP, TSH ####[facility] [address] [address]Dr. Yilan ChangCholesterol in HDL [Mass/Vol]110 mg/dLCritically qqjo90-22Iwk [facility] HospitalComment on above:Performed By: #### LIPID, MG, CMP, TSH ####[facility] [address]ff[address] [address]Dr. Yilan ChangCholesterol in LDL [Mass/Vol]94.4 mg/dLSuburban Community Hospital & [facility] Comment on above:Performed By: #### LIPID, MG, CMP, TSH ####[facility] [address]monztolgu[address] [place], [place] [address]Dr. Argentinalan Pérez Cholesterol.total/Cholesterol in HDL [Mass ratio]2.0 {ratio}NormalThe [facility] HospitalCommclaren [facility] [place] on above:Performed By: #### LIPID, MG, CMP, TSH ####[facility] Ozpcljtaji[address] [place], [place] [address]Dr. Yilan ChangHDL NORMAL> or = 60 mg/dl - LOW CARDIOVASCULAR RISK <40 mg/dl - HIGH CARDIOVASCULAR RISKSuburban Community Hospital & Brent[facility] HospitalCommclaren [facility] [place] on above:Performed By: #### LIPID, MG, CMP, TSH ####[facility] [address] [address]Dr. Yilan ChangLDL CALC NORMALSEE BELOWNoBluffton HospitalComment on above:Result Comment: <100 mg/dl OPTIMAL 100 - 129 mg/dl NEAR OR ABOVE OPTIMAL 130 - 159 mg/dl BORDERLINE HIGH 160 - 189 mg/dl HIGH >190 mg/dl VERY HIGHPerformed By: #### LIPID, MG, CMP, TSH ####[facility] [address]pe[address] [address]Dr. Yilan ChangTriglyceride [Mass/Vol]88 mg/dLNormal<=150The [facility] HospitalComment on above:Performed By: #### LIPID, MG, CMP, TSH ####[facility] [address] [address]Dr. Brady PérezVLDL CALC17.6 mg/dLNormalThe [facility] HospitalComment on above:Performed By: #### LIPID, MG, CMP, TSH ####[facility] [address] [address]Dr. Brady PérezMAGNESIUMon 95-79-0077Lpzcuovpg [Mass/Vol]2.3 mg/dLNormal1.8-2.4The [facility] HospitalComment on above:Performed By: #### LIPID, MG, CMP, TSH ####[facility] Tnptqgcrbf[address] [place], [place] [address]Dr. Brady PérezPROF 14(COMP METB)on [id number] [Mass/Vol]3.9 g/dLNormal3.4-5.0The [facility] Comment on above:Performed By: #### LIPID, MG, CMP, TSH ####[facility] Phcfwgrdyk[address] [place], [place] [address]Dr. Brady Pérez Albumin/Globulin [Mass ratio]1.1 {ratio}NormalMiddletown HospitalComment on above:Performed By: #### LIPID, MG, CMP, TSH ####[facility] [address] [address]Dr. Brady PérezALP [Catalytic activity/Vol]63 U/THjlkjp78-501Pcd [facility] HospitalComment on above:Performed By: #### LIPID, MG, CMP, TSH ####[facility] [address]fv[address] [address]Dr. Brady PérezALT [Catalytic activity/Vol]31 U/L Udolbw80-95Wdf [facility] HospitalComment on above:Performed By: #### LIPID, MG, CMP, TSH ####[facility] [address] [address]Dr. Brady PérezAnion gap [Moles/Vol]10.3 mmol/LNormalThe [facility] Comment on above:Performed By: #### LIPID, MG, CMP, TSH ####[facility] [address]oyll[address] [address]Dr. Yilan ChangAST [Catalytic activity/Vol]14 U/LCritically gtt10-10Kqj [facility]'s Hospitalment on above: Performed By: #### LIPID, MG, CMP, TSH ####[facility] [address]fr[address] [address]Dr. Yilan ChangBilirubin [Mass/Vol]0.7 mg/dL Normal0.2-1.0The [facility] HospitalComment on above:Performed By: #### LIPID, MG, CMP, TSH ####[facility] Johscmmzdp[address] [place], [place] [address]Dr. Yilan ChangCalcium [Mass/Vol]9.1 mg/dLNormal8.5-10.1The [facility] HospitalComment on above:Performed By: #### LIPID, MG, CMP, TSH ####[facility] Isrmmyilbp[address] [place], [place] [address]Dr. Yilan Pérez Chloride [Moles/Vol]103 mmol/SXvdrbb36-373Cpu St. [facility]'s Hospitalment on above: Performed By: #### LIPID, MG, CMP, TSH ####[facility] Spxfqiyksb[address] [place], [place] [address]Dr. Yilan ChangCO2 [Moles/Vol]30.8 mmol/LNormal 21.0-32.0The [facility] HospitalComment on above:Performed By: #### LIPID, MG, CMP, TSH ####[facility] Zvsoxlsvpe[address] [place], [place] [address]Dr. Yilan ChangCreatinine [Mass/Vol]0.76 mg/dLNormal0.55-1.02The [facility] HospitalComment on above:Performed By: #### LIPID, MG, CMP, TSH ####[facility] Mzyzacuepx[address] [place], [place] [address]Dr. Yilan ChangEGFR- AF MAURITANIAN>60Normal>=60The [facility] HospitalComment on above:Performed By: #### LIPID, MG, CMP, TSH ####[facility] [address]mgpusid[address] [address]Dr. Yilan ChangEGFR-NON AF MAURITANIAN>60Normal>=60The [facility] HospitalComment on above:Performed By: #### LIPID, MG, CMP, TSH ####[facility] [address]xpbevrolq[address] [address]Dr. Yilan ChangGlobulin (S) [Mass/Vol]3.5 g/dLNormalThe [facility] HospitalComment on above:Performed By: #### LIPID, MG, CMP, TSH ####[facility] [address]kompmgt[address] [address]Dr. Yilan ChangGlucose [Mass/Vol]104 mg/pQNvuiyp66-855Rwm [facility] HospitalComment on above:Performed By: #### LIPID, MG, CMP, TSH ####[facility] [address]litow[address] [address]Dr. Yilan ChangPotassium [Moles/Vol]4.1 mmol/LNormal 3.5-5.1The [facility] HospitalComment on above:Performed By: #### LIPID, MG, CMP, TSH ####[facility] Zkrwgnoqpo[address] [place], [place] [address]Dr. Yilan ChangProtein [Mass/Vol]7.4 g/dLNormal6.4-8.2The [facility] HospitalComment on above:Performed By: #### LIPID, MG, CMP, TSH ####[facility] Gbgpobzsbu[address] [place], [place] [address]Dr. Yilan ChangSodium [Moles/Vol]140 mmol/WNevihv626-082Cmz [facility] HospitalComment on above: Performed By: #### LIPID, MG, CMP, TSH ####[facility] Jxoplkzhxl[address] [place], [place] [address]Dr. Yilan ChangUrea nitrogen [Mass/Vol]11.0 mg/dLNormal7.0-18.0The [facility] HospitalComment on above:Performed By: #### LIPID, MG, CMP, TSH ####[facility] Gaxfnwqrno[address] [place], [place] [address]Dr. Brady PérezUrea nitrogen/Creatinine [Mass ratio] 14.5 mg/mgSuburban Community Hospital & Brentwood HospitalComment on above:Performed By: #### LIPID, MG, CMP, TSH ####[facility] [address]ibp[address] [address]Dr. Brady PérezTSHon 44-25-7316SUJ3.652 uIU/mLNormal0.358-3.740The [facility] HospitalComment on above:Performed By: #### LIPID, MG, CMP, TSH ####[facility] [address] [address]Dr. Brady Pérez VITAMIN D 25 OHon [id number] D 25-OH35.5 ng/mLNormalMiddletown Hospital Comment on above:Performed By: #### VITAD #### [facility] [address] [place] [address] Dr. Brady Connolly RANGESSEOhio Valley Surgical HospitalComment on above: Result Comment: <20 ng/mL Vit D deficient 20 - <30 ng/mL Vit D insufficient 30 - 100 ng/mL Vit D sufficient >100 ng/mL Potential ToxicityPerformed By: #### VITAD #### [facility] [address] [place] [address] Dr. Brady Israel AUTO DIFFon [id number] #0.1 103/ulNormal0.0-0.1[facility] HospitalComment on above:Performed By: #### CBC ####[facility] Bfrpjxzqpq[address] [place], [place] [address]Dr.Brady PérezBasophils/100 WBC (Bld)1.0 %Normal0.2-2.0[facility] HospitalComment on above:Performed By: #### CBC ####[facility] Mrqjutzjup[address] [place], [place] [address]Dr.Argentinalan ChangEO #0.1 103/ulNormal0.0-0.7The [facility] HospitalComment on above:Performed By: #### CBC ####[facility] [address]xwf[address] [address]Dr.Brady ChangEosinophils/100 WBC (Bld)1.6 %Normal 0.9-7.0The [facility] HospitalComment on above:Performed By: #### CBC ####[facility] Neawvlahdt7[address] [place], [place] [address]Dr.Brady Pérez Erythrocyte distribution width (RBC) [Ratio]13.5 %Rhopqp63.0-15.0The [facility] HospitalComment on above:Performed By: #### CBC ####[facility] Akcftdvdsa[address] [place], [place] [address]Dr.Brady ChangHematocrit (Bld) [Volume fraction]43.9 %Vlemty69.0-48.0The [facility] HospitalComment on above:Performed By: #### CBC ####[facility] Fvixlttjsk[address] [place], [place] [address]Dr.Brady ChangHemoglobin (Bld) [Mass/Vol]14.4 g/dL Bwlmdb34.0-16.0The [facility] HospitalComment on above:Performed By: #### CBC ####[facility] Spgysgzkgg[address] [place], [place] [address]Dr. Brady ChangIG #0.01 10e3/ulNormal0.00-0.03The [facility] HospitalComment on above: Performed By: #### CBC ####[facility] Ibqhsxnsqe[address] [place], [place] [address]Dr.Brady ChangIG %0.1 %Normal0.0-0.5The [facility] HospitalComment on above:Performed By: #### CBC ####[facility] Pvxebricmx[address] [place], [place] [address]Dr.Brady ChangLYMPH #2.4 103/ulNormal1.2-3.8The [facility] HospitalComment on above:Performed By: #### CBC ####[facility] Dyfnegkqsf[address] [place], [place] [address]Dr. Brady ChangLymphocytes/100 WBC (Bld)34.3 %Uflvih23.5-60.0The [facility] Comment on above:Performed By: #### CBC ####[facility] [address] [address]Dr.Brady PérezMANUAL DIFF REQNONormalThe [facility] HospitalComment on above:Performed By: #### CBC ####[facility] Pttqwltyfj[address] [place], [place] [address]Dr.Brady PérezH (RBC) [Entitic mass]30.6 nvFxtjvp00.7-34.0The [facility] HospitalComment on above: Performed By: #### CBC ####[facility] [address]acany[address] [address]Dr.Brady PérezMCHC (RBC) [Mass/Vol]32.8 g/dLNormal 29.9-35.2The [facility] HospitalComment on above:Performed By: #### CBC ####[facility] Lxjdwcbkfl[address] [place], [place] [address]Dr. Brady PérezV (RBC) [Entitic vol]93.2 dYUigpcd90.0-99.0The [facility] Comment on above:Performed By: #### CBC ####[facility] Guixgkvvun[address] [place], [place] [address]Dr.Brady PérezMONO #0.6 103/ulNormal0.3-0.8 The [facility] HospitalComment on above:Performed By: #### CBC ####[facility] Tzmpvfjhge[address] [place], [place] [address]Dr.Brady Beto Monocytes/100 WBC (Bld)9.1 %Normal1.7-12.0The [facility] HospitalComment on above: Performed By: #### CBC ####[facility] [address]vcdfzowdt[address] [place], [place] [address]Dr.Brady BetoNEUT #3.8 103/ulNormal1.4-6.5The [facility] HospitalComment on above:Performed By: #### CBC ####[facility] Jogpobmdut[address] [place], [place] [address]Dr.Brady BetoNeutrophils/100 WBC (Bld)53.9 %Agnaik38.0-75.0The [facility] HospitalComment on above:Performed By: #### CBC ####[facility] [address] [address]Dr.Brady Mayberrylet mean volume (Bld) [Entitic vol]9.7 fLNormal9.5-13.5 The [facility] HospitalComment on above:Performed By: #### CBC ####[facility] [address] [address]Dr.Brady DwghvMAW046 103/udCghnzj712-326Wxp [facility] HospitalComment on above:Performed By: #### CBC ####[facility] [address] [address]Dr. Brady PérezRBC4.71 106/ulNormal4.20-5.40The [facility] HospitalComment on above: Performed By: #### CBC ####[facility] [address] [address]Dr.Brady ChangWBC7.0 103/ulNormal4.0-11.0The [facility] HospitalComment on above:Performed By: #### CBC ####[facility] [address] [place], [place] [address]Dr.Brady PérezCT STROKE HEAD WOon [id number] STROKE HEAD WOEXAM: CT STROKE HEAD WO CLINICAL INDICATION: HEADACHE [...] Electronically authenticated by: REJI GOULD Date: 2021-12-27 05:[address] [place] [address] HEAD WO W CONon [id number] HEAD WO W CONEXAMINATION: CTA HEAD WO W CON, CTA NECK WO W [...] The left ECA is patent. The right VOCAL PERFORMER is patent. The right vertebral artery is [...] Electronically authenticated by: REJI GOULD Date: 2021-12-27 06:39NoBluffton HospitalCovid-19 PCR (CVDTBH)on 63-18-5218TLRV-CoV-2 (COVID-19) RNA BRETT+probe Ql (Unsp spec)Not detectedNormalNOT DETECTEDThe [facility] Comment on above:Result Comment: When diagnostic testing is negative, the [...] for this test is supported by the [place] of Health and Human Service's declaration that circumstances exist to justify the emergency use of in vitro diagnostics for the detection and/or diagnosis of the virus that causes COVID-19. This EUA will remain in effect for the duration of the COVID-19 declaration justifying emergency of IVDs, unless it is terminated or revoked by the FDA (after which the test may no longer be used).Performed By: #### CVDTBH #### [facility] [address] [place] [address] Dr. Brady McconnellF 14(COMP METB)on 22-25-1150Jwsghwo [Mass/Vol]4.0 g/dLNormal 3.4-5.0The [facility] HospitalComment on above:Performed By: #### CMP #### [facility] [address] [address] [address] Brady PérezAlbumin/Globulin [Mass ratio]1.1 {ratio}NormalThe [facility] HospitalComment on above:Performed By: #### CMP #### [facility] [address] [place] [address] Dr. Brady MorrowP [Catalytic activity/Vol]64 U/THegdgj92-218Hmh [facility] HospitalComment on above:Performed By: #### CMP #### [facility] [address] [place] [address] Dr. Brady MorrowT [Catalytic activity/Vol]29 U/QVtakou50-32Hok [facility] HospitalComment on above:Performed By: #### CMP #### [facility] [address] [place] [address] Dr. Brady Cox gap [Moles/Vol]11.9 mmol/LNormalThe [facility] Comment on above:Performed By: #### CMP #### [facility] [address] [place] [address] Dr. Brady PérezAST [Catalytic activity/Vol]16 U/DBtobtf79-65Xkh [facility] HospitalComment on above:Performed By: #### CMP #### [facility] [address] [place] [address] Dr. Brady PérezBilirubin [Mass/Vol]1.1 mg/dLCritically high0.2-1.0The [facility] HospitalComment on above:Performed By: #### CMP #### [facility] [address] [place] [address] Dr. Brady PérezCalcium [Mass/Vol]8.8 mg/dLNormal8.5-10.1The [facility] Comment on above:Performed By: #### CMP #### [facility] [address] [address] [address] Brady PérezChloride [Moles/Vol]104 mmol/DOdvrba90-711Bvc [facility] Comment on above:Performed By: #### CMP #### [facility] [address] [address] [address] Brady PérezCO2 [Moles/Vol]26.7 mmol/EWiiaui91.0-32.0The [facility] Comment on above:Performed By: #### CMP #### [facility] [address] [address] [address] Brady PérezCreatinine [Mass/Vol]1.00 mg/dLNormal0.55-1.02The [facility] HospitalComment on above:Performed By: #### CMP #### [facility] [address] [place] [address] Dr. Abreu ChangEGFR-AF MAURITANIAN>60Normal>=60The [facility] HospitalComment on above:Performed By: #### CMP #### [facility] [address] [place] [address] Dr. Brady PatiñoGFR-NON AF NQPSNGEL09 mL/min/1.67x9Ixyejkxhzq low>=60The [facility] HospitalComment on above:Performed By: #### CMP #### [facility] [address] [place] [address] Dr. Brady PérezGlobulin (S) [Mass/Vol]3.5 g/dLNormalThe [facility] HospitalComment on above:Performed By: #### CMP #### [facility] [address] [address] [address] Brady PérezGlucose [Mass/Vol]103 mg/kMSxwqzk84-153Fld [facility] Comment on above:Performed By: #### CMP #### [facility] [address] [place] [address] Dr. Brady PérezPotassium [Moles/Vol]4.6 mmol/LNormal3.5-5.1The [facility] Comment on above:Performed By: #### CMP #### [facility] [address] [place] [address] Dr. Brady PérezProtein [Mass/Vol]7.5 g/dLNormal6.4-8.2[facility] Comment on above:Performed By: #### CMP #### [facility] [address] [place] [address] Dr. Brady PérezSodium [Moles/Vol]138 mmol/ZJvxptw581-406Wds [facility] Comment on above:Performed By: #### CMP #### [facility] [address] [place] [address] Dr. Brady PérezUrea nitrogen [Mass/Vol]17.0 mg/dLNormal7.0-18.0[facility] HospitalComment on above:Performed By: #### CMP #### [facility] [address] [place] [address] Dr. Brady Mckeon nitrogen/Creatinine [Mass ratio]17.0 mg/mgNoalThSelect Medical Cleveland Clinic Rehabilitation Hospital, Edwin ShawComment on above:Performed By: #### CMP #### [facility] [address] [place] [address] Dr. Brady Mera 76-23-4857DWE Coag (PPP) [Relative time]1.03 {INR} NormalMiddletown HospitalComment on above:Performed By: #### PTT, PT #### [facility] [address] [place] [address] Dr. Brady Johnson GUIDELINESSEE BELOWSuburban Community Hospital & Brentwood HospitalComment on above:Result Comment: DESIRED INR: 2.0 - 3.0 CONDITIONS NOT LISTED BELOW 2.5 - 3.5 FOR PROSTHETIC HEART VALVE REPLACEMENT 2.5 - 3.5 RECURRENT THROMBOSIS Performed By: #### PTT, PT #### [facility] [address] [place] [address] Dr. Brady PérezPT Coag (PPP) [Time]11.1 sNormal9.0-11.6The [facility] Comment on above:Performed By: #### PTT, PT #### [facility] [address] [place] [address] Dr. Brady Blankenship 48-49-7300gWPA Coag (Bld) [Time]26.3 rYrftrp84.3-36.2[facility] HospitalComment on above:Performed By: #### PTT, PT #### [facility] [address] [address] [address] Brady Hamm HEAD_NECKon 54-22-6318BJ HEAD_NECKEXAM: US ST HEAD_NECK HISTORY: Localized enlarged lymph nodes ; cervical [...] Electronically authenticated by: NICK KASPER Date: 2021-09-10 15:45NoBluffton HospitalXR CHEST 2 Von 67-80-5740NV CHEST 2 VEXAM: XR CHEST 2 V HISTORY: Cough EXAM: XR CHEST 2 V INDICATION: 60 years old Female Cough COMPARISON: None. FINDINGS: The cardiac silhouette is normal. There is no pulmonary edema. The lungs are clear. There is no pneumonia. There is no pneumothorax. There is no abnormal foreign body. IMPRESSION: There is no acute abnormality. Electronically authenticated by: VINH UMANZOR Date: 2021-09-10 12:54NoBluffton HospitalCovid-19 PCR (CVDTBH)on 89-61-4172QECH-CoV-2 (COVID-19) RNA BRETT+probe Ql (Unsp spec)Not detectedNormalNOT DETECTEDThe [facility] Comment on above:Result Comment: This test is not yet approved or cleared by the [place] FDA. When there are no FDA-approved or cleared tests available, and other criteria are met, FDA can make tests available under an emergency access mechanism called an Emergency Use Authorization (EUA). The EUA for this test is supported by the [place] of Health and Human Service's (HHS's) declaration that circumstances exist to justify the emergency use of in vitro diagnostics for the detection and/or diagnosis of the virus that causes COVID- 19. This EUA will remain in effect (meaning [...] of clinical signs and symptoms consistent with SARS-CoV-2.Performed By: #### CVDTBH ####[facility] [address] [place], [place] [address]ZzLola PérezOperative Reporton [id number] ReportMR#: [id number] [facility] Pt. Name: Desi Knott Room #: PMC Discharge Date: Birthdate: 1960 OPERATIVE REPORTDATE OF SURGERY: 02/02/2017SURGEON: ALEXA Garcia STANTS: Wilmer PatelSEDATION:Moderate sedation provided by Zach Please note Nursing charts for sedationprotocol.PREOPERATIVE DIAGNOSIS:Cervico-occipital neuralgiaPROCEDURE:Left greater occipital nerveblock under ultrasound guidance.POSTOPERATIVE DIAGNOSIS:Cervico-occipital neuralgiaESTIMATED BLOOD C OUNT:None.COMPLICATIONS:None.SPECIMENS:None.MONITORS:Standard ASA monitors were placed during the entire procedure and theimmediate postoperative period. The patient was communicating with usthroughout the whole entire procedure.INFORMED CONSENT:The risks, benefits and alternatives of the procedurewere discussed withthe patient. The patient was given opportunity to ask questions regardingthe procedure, its indications and the associated risks. The risks of theprocedure discussed include infection, bleeding, allergic reaction, duralpuncture, headache, nerve injuries, spinal cord injury, and cardiovascularand CHAIRMAN CEO side effects with possibility of vascular entry of medications. Ialso informed the patient of potential side effects or reactions to themedications potentially used during the procedure including sedatives,narcotics, nonionic contrast agents, anesthetics, and corticosteroids. Thepatient was informed both verbally and in writing. The patient understoodthe informed consent and desired to have the procedure performed.PROCEDURE:After obtaining consent, the patient was brought tothe procedure room andwas placed in the prone position. I identified the superior nuchal lineunder ultrasound guidance. I prepped the area using chlorhexidine in theusual sterile fashion technique. Iidentified the pulsation of theoccipital artery. Then medial [...] transferred to the recoveryroom in stable condition.POSTPROCEDURE INSTRUCTIONS:Postprocedure vital signs and oximetry were stable. The patient wasdischarged with instructions to ice the injection site as needed for 15-20minutes, as frequently as twice per hour for the next day and to avoidaggressive activities for 1 day. The patient was told to resume allmedications. The patient was told to be in relative rest for 1 day,butthen could resume all normal activities.The patient was instructed to seek immediate medical attention forshortness of breath, chest pain, fever, chills, increased pain, weakness,sensory or motor changes, or changes in bowel or bladder function.Reviewed By:Wilmer Maria DO 02/02/2017 02:33 PElectronically Signed by:Hai Nj M.D. 02/05/2017 11:04 A Hai Nj M.D. I was present for the entire procedure. Date Dict: 02/02/2017/02:31 P/Jaydon Del Rio Trans: 02/02/2017 02:31 P/DN_JN:[id number]: Hai Nj M.D. [address] [place] [address]. Mail[address] [facility] [address]KqngzoEhwFisher-Titus Medical Center Operative Reporton [id number] ReportMR#: [id number] [facility] Pt. Name: Desi Knott Room #: PMC Discharge Date: Birthdate: 1960 OPERATIVE REPORTDATE OF SURGERY: 01/19/2017SURGEON: Hai Nj M.D.ASSISTANTS: Wilmer RubalcavaTION:Moderate sedation provided by Zach Please note Nursing charts for sedationprotocol.PREOPERATIVE DIAGNOSIS:Cervico- occipital neuralgiaPROCEDURE:Left greater occipital nerveblock under ultrasound guidance.POSTOPERATIVE DIAGNOSIS:Cervico-occipital neuralgiaESTIMATED BLOOD C OUNT:None.COMPLICATIONS:None.SPECIMENS:None.MONITORS:Standard ASA monitors were placed during the entire procedure and theimmediate postoperative period. The patient was communicating with usthroughout the whole entire procedure.INFORMED CONSENT:The risks, benefits and alternatives of the procedurewere discussed withthe patient. The patient was given opportunity to ask questions regardingthe procedure, its indications and the associated risks. The risks of theprocedure discussed include infection, bleeding, allergic reaction, duralpuncture, headache, nerve injuries, spinal cord injury, and cardiovascularand CHAIRMAN CEO side effects with possibility of vascular entry of medications. Ialso informed the patient of potential side effects or reactions to themedications potentially used during the procedure including sedatives,narcotics, nonionic contrast agents, anesthetics, and corticosteroids. Thepatient was informed both verbally and in writing. The patient understoodthe informed consent and desired to have the procedure performed.PROCEDURE:After obtaining consent, the patient was brought tot procedure room andwas placed in the prone position. I identified the superior nuchal lineunder ultrasound guidance. I prepped the area using chlorhexidine in theusual sterile fashion technique. Iidentified the pulsation of theoccipital artery. Then medial [...] transferred to the recoveryroom in stable condition.POSTPROCEDURE INSTRUCTIONS:Postprocedure vital signs and oximetry were stable. The patient wasdischarged with instructions to ice the injection site as needed for 15-20minutes, as frequently as twice per hour for the next day and to avoidaggressive activities for 1 day. The patient was told to resume allmedications. The patient was told to be in relative rest for 1 day,butthen could resume all normal activities.The patient was instructed to seek immediate medical attention forshortness of breath, chest pain, fever, chills, increased pain, weakness,sensory or motor changes, or changes in bowel or bladder function.Reviewed By:Wilmer Maria DO 01/19/2017 03:18 PElectronically Signed by:Hai Nj M.D. 02/05/2017 11:00 A Hai Nj M.D. I was present for the entire procedure. Date Dict: 01/19/2017/03:14 P/Jaydon Del Rio Trans: 01/19/2017 03:14 P/DN_JN:[id number]-Titus Medical Center Vital Signs Date TimeVital SignValuePerforming SzixdburxTizjlcyj18-31-7783 14:45-0400Body ohbxoi819.56 cmBenjamin Ball DO Work Phone: [facility]10-20-2025 14:45-0400 Body mass index (BMI) [Ratio]24.7 kg/c7Vaaykfqo Ball DO Work Phone: [facility]10-20-2025 14:45-0400 Body qdljyd07.54 kgBenjamin Ball DO Work Phone: [facility]10-20-2025 14:45-0400 Diastolic blood jjijwbjh23 mm[Hg]Zacarias Ball DO Work Phone: [phone]10-20-2025 14:45-0400 Heart rate65 /minBenjamin Ball DO Work Phone: [phone]10-20-2025 14:45-0400 Respiratory rate12 /minBenjamin Ball DO Work Phone: [phone] [place], [place] [address]10-20-2025 14:45-0400 Systolic blood mxfqfxot289 mm[Hg]Zacarias Ball DO Work Phone: [phone] [place], [place] [address]108-29-2025 09:26-0400 Body .56 cmBenjamin Ball DO Work Phone: [phone] [place], [place] [address]708-29-2025 09:26-0400 Body mass index (BMI) [Ratio]23.8 kg/a5Fdqianfp Ball DO Work Phone: 1(085)[address] [place], [place] 96[address]708-29-2025 09:26-0400 Body xkbrhy00.1 kgBenjamin Ball DO Work Phone: 1(860)[address] [place], [place] [address]708-29-2025 09:26-0400 Diastolic blood uhublijr84 mm[Hg]Zacarias Ball DO Work Phone: 1(319)[address] [place], [place] [address]-29-2025 09:26-0400 Heart rate60 /minBenjamin Ball DO Work Phone: 1(479)[address] [place], [place] [address]708-29-2025 09:26-0400 Respiratory rate12 /minBenjamin Ball DO Work Phone: [phone])[address] [place], [place] 96[address]708-29-2025 09:26-0400 Systolic blood kkodydid610 mm[Hg]Zacarias Ball DO Work Phone: [phone])[address] [place], [place] [address]702-21-2025 09:36-0500 Body chyymm282.56 cmOhio[facility]02-21-2025 09:36-0500Body mass index (BMI) [Ratio]24.2 kg/p8IfpvmsujzOhiohealth Berger Hospital02-21-2025 09:36-0500Body jdbpby38.01 kgOhiohealth [facility] Hospital02-21-2025 09:36-0500Diastolic blood mm[Hg][facility] 05-10-2024 09:36-0500Heart rate70 /[facility] 05-10-2024 09:36-0500Respiratory rate12 /[facility] 05-10-2024 09:36-0500Systolic blood ryeedato460 mm[Hg][facility]01-16-2025 11:43-0500Body slydbg902.56 cmOhiohealth [facility] Hospital01-16-2025 11:43-0500Body mass index (BMI) [Ratio]23.8 kg/b5TsaszqtshOhiohealth Berger Hospital01-16-2025 11:43-0500Body okxovz72.16 [facility]01-16-2025 11:43-0500Diastolic blood mm[Hg] [facility]01-16-2025 11:43-0500Heart rate69 /[facility]01-16-2025 11:43-0500Respiratory rate12 /[facility]01-16-2025 11:43-0500Systolic blood gtrzqkyd560 mm[Hg] [facility]08-16-2024 10:05-0400Body ytbjdc712.56 cm [facility]08-16-2024 10:05-0400Body mass index (BMI) [Ratio]23.4 kg/i2XktvphlrlOhiohealth Berger Hospital08-16-2024 10:05-0400Body lrartr75.91 [facility]08-16-2024 10:05-0400Diastolic blood eikhijge99 mm[Hg][facility]08-16-2024 10:05-0400 Heart rate57 /[facility]08-16-2024 10:05-0400 Respiratory rate12 /[facility]08-16-2024 10:05-0400 Systolic blood jykxtcqp702 mm[Hg][facility]05-13-2024 10:34-0400Body lleptt874.56 cmOhiohealth [facility] Hospital05-13-2024 10:34-0400Body mass index (BMI) [Ratio]23.5 kg/e2VbsgbcmmbOhiohealth Berger Hospital05-13-2024 10:34-0400Body qudkwi55.19 [facility] 07-31-2023 10:34-0400Diastolic blood lleddcxh58 mm[Hg][facility]05-13-2024 10:34-0400Heart rate52 /minOhiohealth Berger Hospital 07-31-2023 10:34-0400Respiratory rate12 /minOhiohealth Berger Hospital 07-31-2023 10:34-0400Systolic blood wqwmabjd649 mm[Hg][facility]02-19-2024 16:41-0500Diastolic blood vyxjruqz03 mm[Hg][facility]02-19-2024 16:41-0500Systolic blood ntztiznj482 mm[Hg][facility]02-19-2024 15:38-0500Body jypnqg675.56 cmOhiohealth Berger Hospital02-19-2024 15:38-0500Body mass index (BMI) [Ratio]23.8 kg/x8WoxdqxvdbOhiohealth Berger Hospital02-19-2024 15:38-0500Body ewkdeq49.82 kg [facility]02-19-2024 15:38-0500Diastolic blood yoqwklrt26 mm[Hg][facility]02-19-2024 15:38-0500Heart rate54 /min [facility]02-19-2024 15:38-0500Respiratory rate12 /min [facility]02-19-2024 15:38-0500Systolic blood idocakep343 mm[Hg][facility]08-15-2023 15:30-0400Body .56 cmBenEnhanced Medical Decisions Ball Other [employer] Other 08-15-2023 15:30-0400Body mass index (BMI) [Ratio]23 kg/h7Rgyxjvnl Ball Other [employer] Other 08-15-2023 15:30-0400Body ieibtc06.78 kgBenjamin Ball Other [employer] Other 08-15-2023 15:30-0400Diastolic blood ggbawrxz77 mm[Hg] Zacarias Ball Other [employer] Other 08-15-2023 15:30-0400Respiratory rate12 /minBenjamin Ball Other [employer] Other 08-15-2023 15:30-0400Systolic blood zzdoaurg112 mm[Hg] Zacarias Ball Other [employer] Other 05-15-2023 15:00-0400Body xwaccs261.56 cmBenjamin Ball Other [employer] Other 05-15-2023 15:00-0400Body mass index (BMI) [Ratio] 22.93 kg/t8Bpjahzre Ball Other [employer] Other 05-15-2023 15:00-0400Body fbbeoc18.6 kgBenjamin Ball Other [employer] Other 05-15-2023 15:00-0400Diastolic blood oowfpgno42 mm[Hg] Zacarias Ball Other [employer] Other 05-15-2023 15:00-0400Respiratory rate12 /minBenjamin Ball Other [employer] Other 05-15-2023 15:00-0400Systolic blood rlgmhugv767 mm[Hg] Zacarias Ball Other [employer] Other 03-27-2023 15:00-0400Body ytggyj666.56 cmBenjamin Ball Other [employer] Other 03-27-2023 15:00-0400Body mass index (BMI) [Ratio] 22.76 kg/k8Fyjbudbm Ball Other [employer] Other 03-27-2023 15:00-0400Body jyobhc50.15 kgBenjamin Ball Other [employer] Other 03-27-2023 15:00-0400Diastolic blood jjfunhuh92 mm[Hg] Zacarias Ball Other [employer] Other 03-27-2023 15:00-0400Respiratory rate12 /minBenjamin Ball Other [employer] Other 03-27-2023 15:00-0400Systolic blood rershqig125 mm[Hg] Zacarias Ball Other [employer] Other 02-13-2023 15:00-0500Body ygpmpo215.56 cmBenjamin Ball Other [employer] Other 02-13-2023 15:00-0500Body mass index (BMI) [Ratio] 22.55 kg/v1Qcunsldy Ball Other [employer] Other 02-13-2023 15:00-0500Body qbvunt47.6 kgBenjamin Ball Other [employer] Other 02-13-2023 15:00-0500Diastolic blood cyrypgnq18 mm[Hg] Zacarias Ball Other [employer] Other 02-13-2023 15:00-0500Respiratory rate12 /minBenjamin Ball Other [employer] Other 02-13-2023 15:00-0500Systolic blood mm[Hg] Zacarias Stallings Other [facility] [employer] Other Encounters Encounter DateEncounter TypeCare ProviderFacilityStart: 01-06-2025 End: 83-28-9102weulvuoobuEcnbviki Ball DO Work Phone: -[facility] ClinicStart: 01-06-2025 End: 77-17-3524Umqaqmk encounter procedureBemariana Stallings DO-[facility] Work Phone: Start: 24-41-8299Xrt-patient / Non-visitBemariana Stallings DO-[facility] [employer] Work Phone: Start: 11-15-2024 End: 23-23-8887vshjtbjsflRiqyxrnm Ball DO Work Phone: [facility] Work Phone: Start: 11-15-2024 End: 95-43-5821Uzsnlld encounter procedureBemariana Stallings DO-[facility] Work Phone: Start: 11-15-2024 End: 01-52-0695Ptvwegj encounter statusBemariana Stallings [facility] Daytontart: 05-10-2024 End: 29-98-9410cnkidebmpcFwtnypfnoOhioHealth [facility] Work Phone: Start: 05-10-2024 End: 78-06-8029Xaxugfe encounter procedurePerson [facility] Work Phone: Start: 04-04-2024 End: 03-04-0975wgpnhsrclhAylqtqyjkOhioHealth [facility] Work Phone: Start: 04-04-2024 End: 78-31-6477Dpcyfvm encounter procedurePerson [facility] Work Phone: Start: 12-53-1500Doj-patient / Non-visitPerson [facility] Work Phone: start: 11-03-2023 End: 85-11-5830ijjuxwgeytLurskdlzhPremier Health [facility] Work Phone: Start: 11-03-2023 End: 14-59-8564Fbarfhfxo for general adult medical examination without abnormal findingsCleveland Clinic Lutheran Hospitaltart: 11-03-2023 End: 35-00-0624Jgjnlts encounter procedurePerson [facility] Work Phone: Start: 07-31-2023 End: 71-41-8825ejbojxeirqJfykynzmgOhioHealth [facility] Hospital Work Phone: Start: 07-31-2023 End: 76-59-4542Uocaqmq encounter procedurePerson [facility] Work Phone: Start: 05-63-1592Frc-patient / Non-visitFirinova [facility]-[place] [employer] Work Phone: Start: 05-08-2023 End: 10-24-3958fhrgjdusmnTwneptycxOhioHealth [facility] Hospital Work Phone: Start: 05-08-2023 End: 25-16-3982Lqzxqrk encounter procedurePerson [facility] Work Phone: Start: 01-02-2023 End: 63-99-5742ifkcczwgppUltwbedb Ball Other [employer] Other Start: 64-98-6546Uragcczem encounterBenjamin BallFPG [facility] ClinicStart: 12-22-2022 End: 68-39-1660nxhujypbfwAoegaeqr Ball Other [employer] Other Start: 44-04-4923Orfveuayv encounterBenjamin BallFPG Ball Medical ClinicStart: 11-08-2022 End: 15-11-0596larlsaydufIwshkygc Ball Other [employer] Other Start: 29-58-2905Gnvdxoqxx encounterBenjamin BallFPG [facility] Medical ClinicStart: 11-01-2022 End: 38-99-9069hfpdvvxzlbUzxpnnhr Ball Other [place] [employer] Other Start: 04-64-6145Hduvwawhv for general adult medical examination without abnormal findingsBenjamin BallFPG [facility] Medical ClinicStart: 02-82-6076Zjvqpmdw preventive med est patient 40-64yrsBenjamin BallFPG [facility] ClinicStart: 08-01-2022 End: 11-20-3072kdgprcthnhQctwjdmj Ball Other [facility] [employer] Other Start: 21-80-0644Pmqnib outpatient visit 15 minutes Zacarias BallFP[facility] ClinicStart: 69-77-1218Lqkmzfxro encounterBenjamin BallFPG [facility] ClinicStart: 06-29-2022 End: 13-73-3823orvlrtgiyyZD MARV ACEVEDO .[place] [employer] Other Start: 06-13-2022 End: 43-67-0824irlrlwqvgtFwgfmrpx Ball Other [facility] [employer] Other Start: 86-16-0549Clfkoi outpatient visit 25 minutes Zacarias [facility]FP[facility] ClinicStart: 05-17-2022 End: 80-70-2875mlpyiprnswEdyohymw Ball Other noMophie [employer] Other Start: 30-93-3446Jckwbvamu encounterBenjamin BallFPG [facility] ClinicStart: 05-02-2022 End: 47-17-0727rzdxqfcmxqPvsquglc Ball Other noMophie [employer] Other Start: 94-92-1525Icscsd outpatient visit 25 minutes Zacarias BallFP[facility] ClinicStart: 03-24-2022 End: 97-80-6803npxsmdeftgYnpazjtn Ball Other noMophie [employer] Other Start: 72-82-7227Tfuoutlmd encounterBenandrezmin BallFPG [facility] ClinicStart: 03-22-2022 End: 22-28-6139vmeoyozroeBzwwfwtn Ball Other [facility] [employer] Other Start: 71-59-6690Yivbqfjat encounterBenjamin BallFPG [facility] ClinicStart: 02-11-2022 End: 55-53-7711fngvmntvqfLQ ZACARIAS BALLFacility:T9Zcgkf: 43-29-7248Elxxxqsqt for general adult medical examination without abnormal findingsDR ZACARIAS STALLINGS [facility]ertart: 02-05-2022 End: 67-09-1211orbmsclxkwFN ZACARIAS BALLFacility:M0Ftyzc: 02-05-2022 End: 92-36-1234Rgmnoqlfd for general adult medical examination without abnormal findingsDR ZACARIAS BALLFacility:H3Dbwzs: 12-27-2021 End: 56-60-0427ajjsdtxznwIL PANDA Philippe SMITHFacility:B7Dqrzj: 09-10-2021 End: 07-22-2139ygwucvihxnWR ZACARIAS BALLFacility:E3Ztimo: 05-44-7876vwgvpnjbxo DR LEVY BALLFacility:I3Jazda: 08-31-2021 End: 30-59-5216clrvjmwocwVL BENJAMIN BALLFacility:F3Hpqhv: 02-02-2017 End: 97-75-3833PxhlkvqinuPHAUNU N ATALLAHFacility:UTMCStart: 01-19-2017 End: 91-58-7552NfpuimxrtnTBDZOE N ATALLAHFacility:[facility] Procedures DateProcedureProcedure DetailPerforming ClinicianStart: 65-52-8517FE screening mammo BI w/CADBenjamin Ball DO Work Phone: Screening for malignant neoplasm of cervixBenjamin Ball Other Screening for malignant neoplasm of colonBenjamin Ball Other Plan of Treatment DateCare ActivityDetailAuthorComprehensive metabolic 2000 panel - Serum or PlasmaOhiohealth Berger HospitalMG Breast - bilateral [facility]eningSt. [facility] Immunizations Immunization DateImmunizationNotesCare BpqpfijaArnsrmtn23-12-7443UCWSN-45 Vaccine Moderna - Documentation Purposes OnlyBemariana Chandrakant Other [facility]10-12-2021COVID-19 Vaccine Moderna - Documentation Purposes OnlyBemariana Chandrakant Other [facility]12-04-2015influenza virus vaccine, split virus (incl. purified surface antigen)Zacarias Stallings Other [place] [employer] Other [id number] virus vaccine, unspecified formulationOhiohealth Berger Hospital12-04-2015influenza, seasonal, injectable, preservative freeBenjamin Ball DO Work Phone: [facility]02-22-2015zoster vaccine, liveBenjamin Ball DO Work Phone: [facility] Payers DatePayer CategoryPayerPolicy [id number] 2..[id number] 2..[id number] 2..[id number] 2..[id number] 2..[id number] 2..[id number] [id number]-[id number] [id number] Social History DateTypeDetailFacilitySex Assigned At [facility] [employer] Other Start: 05-08-2023 End: 96-14-1929Yfifhan smoking status NHISNever smoked tobacco (finding) [facility]art: 22-28-1862Ewf Assigned At [facility]: 04-04-2024 End: 01-59-8223XegJrpbed (finding)[facility] Clinical Notes 03-22-2022 to 11-15-2024 Note Date & NwceMngvYdgzlcqv06-39-1172 Evaluation note* Diagnosis Onset Date Resolution Status Admit Date Cerebral atherosclerosis acuteAugust 2024 9:16amCervical spondylosisacuteAugust 2024 9:16am HyperlipidemiaacuteAugust 2024 9:16amNicotine dependenceacuteAugust 2024 9:16amPalpitationacuteAugust 2024 9:16amPrimary hypertensionacute November 15, 2024 9:16amScreening for colon canceracuteAugust 2024 9:16am Screening mammogram for breast canceracuteAugust 2024 9:16amWellness examinationnoneactiveAugust 2024 9:16amHyperlipidemiaacuteOct2024 2:31pmNeutropeniaacuteOct2024 2:31pmNicotine dependenceacute January 06, 2025 2:31pmPrimary hypertensionacuteOctober 2024 2:31pm Swelling of lower extremityacuteOct2024 2:31pm [facility] Work Phone: 1(149) 537-924301-16-2025 Evaluation note* Diagnosis Onset Date Resolution Status Admit Date Nicotine dependence acuteJanuary 2024 11:10amPrimary hypertensionacuteJanuary 2024 11:10amAcute bronchitis due to other specified organismsnoneactiveJanuary 2024 11:10amCerebral atherosclerosisacuteFebruary 2024 9:29am HyperlipidemiaacuteFebruary 2024 9:29amNicotine dependenceacuteFebruary 2024 9:29amPalpitationacuteFebruary 2024 9:29amPrimary hypertension acuteFebruary 2024 9:29am [facility] Work Phone: 1(537) 389-850410-05-2023 Evaluation note* Encounter Date Diagnosis Assessment Notes Treatment Notes Treatment Clinical Notes Dec, Hyperlipidemia type II (ICD-10 - E78.01) [employer] Other 08-22-2023 Evaluation note* Encounter Date Diagnosis Assessment Notes Treatment Notes Treatment Clinical Notes Oct, Elevated cholesterol (ICD-10 - E 78.00) [employer] Other 08-15-2023 Evaluation note* Encounter Date Diagnosis Assessment Notes Treatment Notes Treatment Clinical Notes Oct, Primary hypertension (ICD-10 - I 10) This patient is instructed to consume a healthy, low-fat, low-salt diet. They are also encouraged to continue exercise to achieve/maintain a normal BMI. Oct,Wellness examination (ICD-10 - Z00.00)Healthy diet and exercise. Reviewed age-appropriate preventive testing recommended. Oct,Hyperlipidemia type II (ICD-10 - E78.01)Instructed on diet and exercise with continued statin therapy.Discussed the beneficial effects of lo wering cholesterol in reducing the risk for cerebrovascular and cardiovascular disease. Oct,Migraine with aura, not intractable, without status migrainosus (ICD-10 - G43.109)Much improved. Counseled against overuse of medication Oct,erebral infarction due to stenosis of right carotid artery (ICD-10 - I63.231)Minimal residual deficit. BP under much better control and she has discontinued tobacco use. Continue secondary prevention measures. Oct,ervical spondylosis (ICD-10 - M47.812)ROM exercises, heat/ice and continue Baclofen as needed at HS. 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 [employer] Other 05-15-2023 Evaluation note* Encounter Date Diagnosis Assessment Notes Treatment Notes Treatment Clinical Notes July, Cigarette nicotine dependence, u ncomplicated (ICD-10 - F17.210) This patient has been encouraged to quit tobacco use immediately. They are aware of the hazards associated with tobacco use, including but not limited to respiratory infections, vascular disease and cancers. July,rimary hypertension (ICD-10 - I10)This patient is instructed to consume a healthy, low-fat, low-salt diet. They are also encouraged to continue exercise to achieve/maintain a normal BMI. Continue present treatment - CCB, ARB, BB, diuretic, clonidine July,Hyperlipidemia type II (ICD-10 - E78.01)Instructed on diet and exercise with continued statin therapy.Discussed the beneficial effects of lo wering cholesterol in reducing the risk for cerebrovascular and cardiovascular disease. [employer] Other 04-12-2023 Evaluation note* Encounter Date Diagnosis Assessment Notes Treatment Notes Treatment Clinical Notes Jun, Essential hypertension (ICD-10 - I10) [employer] Other 03-27-2023 Evaluation note* Encounter Date Diagnosis Assessment Notes Treatment Notes Treatment Clinical Notes May, Essential hypertension (ICD-10 - I10) This patient is instructed to consume a healthy, low-fat, low-salt diet. They are also encouraged to continue exercise to achieve/maintain a normal BMI. Increase Losartan to 50mg bid and call in couple weeks w/ update May,erebral infarction due to stenosis of right carotid artery (ICD-10 - I63.231)Continue ASA. Continue secondary prevention measures: LDL < 70, BP < 140/90 and stop tobacco use May,Hyperlipidemia type II (ICD-10 - E78.01)Diet and exercise with continued statin therapy. May,igarette nicotine dependence, uncomplicated (ICD-10 - F17.210)This patient has been encouraged to quit tobacco use immediately. They are aware of the hazards associated with tobacco use, including but not limited to respiratory infections, vascular disease and cancers. May,Migraine with aura, not intractable, without status migrainosus (ICD-10 - G43.109)Stable w/o exacerbations. May,issection of right carotid artery (ICD-10 - I77.71)Importance of improved BP control stressed. d/c tobacco use, restrict salt use and avoid NSAIDs, Sudafed [employer] Other 02-28-2023 Evaluation note* Encounter Date Diagnosis Assessment Notes Treatment Notes Treatment Clinical Notes Apr, Essential hypertension (ICD-10 - I10) [employer] Other 02-13-2023 Evaluation note* Encounter Date Diagnosis Assessment Notes Treatment Notes Treatment Clinical Notes Apr, Essential hypertension (ICD-10 - I10) This patient is instructed to consume a healthy, low-fat, low-salt diet. They are also encouraged to continue exercise to achieve/maintain a normal BMI. Apr,igarette nicotine dependence, uncomplicated (ICD-10 - F17.210)This patient has been encouraged to quit tobacco use immediately. They are aware of the hazards associated with tobacco use, including but not limited to respiratory infections, vascular disease and cancers. Apr,Hyperlipidemia type II (ICD-10 - E78.01)Diet and exercise with continued statin therapy. Apr,Unilateral occipital headache (ICD-10 - R51.9)Secondary to cervical spine disease. Monitor for now. Apr,ervical spondylosis with radiculopathy (ICD-10 - M47.22)ROM exercises, heat/ice and Tylenol Apr,erebral infarction due to stenosis of right carotid artery (ICD-10 - I63.231)Continue secondary prevention measures: - ASA daily - Statin therapy - improve BP control - stop tobacco use [employer] Other 01-05-2023 Evaluation note* Encounter Date Diagnosis Assessment Notes Treatment Notes Treatment Clinical Notes Mar, Essential hypertension (ICD-10 - I10) [employer] Other 01-03-2023 Evaluation note* Encounter Date Diagnosis Assessment Notes Treatment Notes Treatment Clinical Notes Mar, Essential hypertension (ICD-10 - I10) Mar,erebral infarction due to stenosis of right carotid artery (ICD-10 - I63.231) [employer] Other Evaluation noteNo InformationNort [employer] Other Evaluation noteNo assessment information available [facility] Work Phone: Evaluation note* Diagnosis Onset Date Resolution Status Cerebral infarction due to stenosis of r ight carotid artery acuteHyperlipidemiaacuteNicotine dependenceacutePrimary hypertensionacuteKnee pain, bilateralnoneactiveSore throatnoneactive [facility] Work Phone: Evaluation note* Diagnosis Onset Date Resolution Status Cerebral atherosclerosis acuteHyperlipidemiaacuteNicotine dependenceacutePalpitationacutePrimary hypertensionacuteWellness examinationnoneactive [facility] Work Phone: Evaluation note* Diagnosis Onset Date Resolution Status Admit Date Cerebral atherosclerosis acuteAugust 2024 9:16amCervical spondylosisacuteAugust 2024 9:16am HyperlipidemiaacuteAugust 2024 9:16amNicotine dependenceacuteAugust 2024 9:16amPalpitationacuteAugust 2024 9:16amPrimary hypertensionacute [place] 2024 9:16amScreening mammogram for breast canceracuteAugust 2024 9:16amWellness examinationnoneactiveAugust 2024 9:16am [facility] Work Phone: History general Narrative - Reported* Type Description Date Medical History Cerebral infarction due to steno sis of right carotid artery Medical HistoryDissection of right carotid arteryMedical HistoryCigarette nicotine dependence, uncomplicatedMedical HistoryMigraine with aura, not intractable, without status migrainosusMedical HistoryEssential hypertension Medical HistoryMenopauseMedical HistoryCOVIDMedical HistoryCoughMedical History Eustachian tube dysfunction, rightMedical HistoryAnterior cervical adenopathy Medical HistorySubconjunctival hemorrhage of left eyeMedical HistoryFrequency of urinationMedical HistoryCervical cancer screeningMedical HistoryAcute mastitis of left breastMedical HistoryHyperlipidemia type IIMedical HistoryLeft carotid bruitMedical HistoryHyperparathyroidism, primaryMedical HistoryElevated blood pressure (not hypertension)Medical HistoryCervical spondylosis with radiculopathyMedical HistoryIrritable bowel syndrome with constipationSurgical Rucktwrhbbslpwmcvey6069Ohhqtjks Historywrist surgery (left)Surgical History exploratory stomach surgerySurgical Historytubal ligationSurgical History bwlsmhpmteilfzhid49/22/2019Hospitalization Historysee above surgical history [employer] Other History general Narrative - Reported* Type Description Date Medical History Cerebral infarction due to steno sis of right carotid artery Medical HistoryDissection of right carotid arteryMedical HistoryCigarette nicotine dependence, uncomplicatedMedical HistoryMigraine with aura, not intractable, without status migrainosusMedical HistoryEssential hypertension Medical HistoryMenopauseMedical HistoryCOVIDMedical HistoryCoughMedical History Eustachian tube dysfunction, rightMedical HistoryAnterior cervical adenopathy Medical HistorySubconjunctival hemorrhage of left eyeMedical HistoryFrequency of urinationMedical HistoryCervical cancer screeningMedical HistoryAcute mastitis of left breastMedical HistoryHyperlipidemia type IIMedical HistoryLeft carotid bruitMedical HistoryHyperparathyroidism, primaryMedical HistoryElevated blood pressure (not hypertension)Medical HistoryCervical spondylosis with radiculopathyMedical HistoryIrritable bowel syndrome with constipationSurgical Iesewhkbfxwxdjcfdog5378Uhaqmays Historywrist surgery (left)Surgical History exploratory stomach surgerySurgical Historytubal ligationSurgical History wxxewynsapgunsjxi89/22/2019Surgical ZanhdbnZoecjmacjms48/2015Hospitalization Historysee above surgical history [employer] Other Reason for referral (narrative)No reason for referral information availableWood County Hospital Work Phone: Summary Purpose Family History Relationship Condition Age at Onset Recorded Date/T francine father Arthritis Unknown Malignant melanomaUnknownCerebrovascular accident (CVA)UnknownHypertension UnknownHeart diseaseUnknownNot SpecifiedAsthmaUnknownPresence of cardiac pacemakerUnknownMalignant neoplasm of kidneyUnknownMalignant neoplasmUnknown brotherHypertensionUnknownsisterHypertensionUnknown Relationship Condition Age at Onset Recorded Date/T francine father Arthritis Unknown Malignant melanomaUnknownCerebrovascular accident (CVA)UnknownHypertension UnknownHeart diseaseUnknownmotherAsthmaUnknownPresence of cardiac pacemaker UnknownMalignant neoplasm of kidneyUnknownMalignant neoplasmUnknownbrother HypertensionUnknownsisterHypertensionUnknown Advance Directives Advance Directive Response Recorded Date/ Time Advance Directives No December 29, 2018 8:46am Advance Directive Response Recorded Date/ Time Advance Directives No December 29, 2018 9:46am Chief Complaint and Reason for Visit Chief Complaint 6 month Chief Complaint 6 month Amb Documentation eye irritationReason for VisitCerebral infarction due to stenosis of right carotid [...] 9 :16am Screening mammogram for breast cancer [facility] 2024 9:16am Wellness examination November 15, 2024 9 :16am Chief Complaint Admit Date Wellness November 15, 2024 9: 16am Swollen Feet January 06, 2025 2 :31pm Reason for Visit Admit Date Cerebral atherosclerosis November 15 9:16am Cervical spondylosis November 15, 2024 9 :16am Hyperlipidemia November 15, 2024 9: 16am Nicotine dependence November 15, 2024 9: 16am Palpitation November 15, 2024 9: 16am Primary hypertension November 15, 2024 9 :16am Screening for colon cancer November 15, 2024 9:16am Screening mammogram for breast cancer [facility] 2024 9:16am Wellness examination November 15, 2024 9 :16am Hyperlipidemia January 06, 2025 2 :31pm Neutropenia January 06, 2025 2 :31pm Nicotine dependence January 06, 2025 2 :31pm Primary hypertension January 06, 2025 2:31pm Swelling of lower extremity December 2:31pm Additional Source Comments INFORMATION SOURCE (unrecogn ized section and content) DATE CREATED AUTHOR 09/12/2017 [facility] DATE CREATED AUTHOR AUTHOR'S ORGANIZ ATION 07/02/2022 [facility] REASON FOR VISIT (unrecogniz ed section and [...] Care Provider Active Start: May 31, 2023 Mansoor Quiroz ProviderActiveStart: May 31, 2023 Team Status: Inactive Member [...] Member Role Status Dates Zacarias Stallings , Primary Care Provider Active Start: November 15, 2024 End: November 15montysouleymane Chandrakant , DOAttending ProviderActiveStart: November 15, 2024 End: November 15, 2024 Team Status: Active Member Role/Relationship Status Dates Zacarias Stallings Primary Care Provider Active Team Status: Inactive Member Role/Relationship Status Dates Zacarias Stallings , Primary Care Provider Active Start: November 15, 2024 End: November 15enandrezsouleymane Stallings , DOAttending ProviderActiveStart: November 15, 2024 End: November 15, 2024 Team Status: Active Member Role/Relationship Status Dates Zacarias Stallings Primary Care Provider Active Start: December 06, 2024 Zacarias Stallings , DOAttending ProviderActiveStart: December 06, 2024 Team Status: Inactive Member Role/Relationship Status Dates Zacarias Stallings Primary Care Provider Active Start: January 06, 2025 End: January 06dannyandrezsouleymane Stallings , DOAttending ProviderActiveStart: January 06, 2025 End: January 06, 2025 Goals (unrecognized section and content) Goals may [...] BE BASED ON THE PRIMARY CLINICAL RECORDS. [facility], [facility]. provides no warranty or guarantee of the accuracy or completeness of information in this document.
== END 2025-02-10 08:56 | disposition home or self-care (01) ==
LOC: CARD 08:55
PROVIDERS: PCP Internal Medicine; Visit Provider Internal Medicine
DX: M79.89 Other specified soft tissue disorders (principal); R01.1 Cardiac murmur, unspecified
CPT/HCPCS: 93306